=== PATIENT | male | born 1955 | race Caucasian/White ===

== ENCOUNTER 2024-01-10 19:41 | Inpatient (IN) ==
[2024-01-10 20:40] LABS: Basophils # (auto) 0.04 K/uL (0.00-0.20); Basophils % (auto) 0.3 %; Eosinophils # (auto) 0.04 K/uL (0.00-0.50); Eosinophils % (auto) 0.3 %; Hematocrit (blood only) 28.3 % (42.0-52.0); Hemoglobin 9.9 g/dl (14.0-18.0); Immature Granulocytes # (auto) 0.06 K/uL (0.01-0.20); Immature Granulocytes % (auto) 0.5 %; Lymphocytes # (auto) 0.78 K/uL (1.20-3.40); Mean Corpuscular Hemoglobin 31.1 pg (25.0-34.0); Mean Platelet Volume 11.3 fL (9.4-12.4); Monocytes % (auto) 10.7 %; Neutrophils # (auto) 10.73 K/uL (1.40-6.50); Neutrophils % (auto) 82.2 %; Platelet Count 211 K/uL (130-400); RDW Coefficient of Variation 12.7 % (11.5-14.5); RDW Standard Deviation 41.2 fL (36.4-46.3); Red Blood Count 3.18 M/uL (4.70-6.10); White Blood Count 13.05 K/ul (4.8-10.8)
[2024-01-10 21:11] LABS: Albumin Globulin Ratio 1.3 (0.9-2); Albumin Level 4.1 gm/dl (3.4-5.0); BUN Creatinine Ratio 7.2 (10-20); Bilirubin,Total 0.4 mg/dl (0.2-1.0); Calcium 8.7 mg/dl (8.6-10.3); Creatinine Clr Calc Pharmacy 10.1 ml/min; Est GFR (African American) 8.4 ml/min; Est GFR (Non-African American) 7.2 ml/min; Globulin 3.1 gm/dl (2.5-4.0); Potassium 6.2 mmol/L (3.5-5.1); Total Protein 7.2 gm/dl (6.0-8.3)
[2024-01-10] MEDS: ALBUTEROL 0.5% NEB SOLN 2.5 MG/0.5 ML VIAL NEB STA (21:53)
[2024-01-10] MEDS: SODIUM BICARBONATE 8.4% 150 MEQ in DEXTROSE 5% 1,000 ML IV STA (21:53)
[2024-01-10] MEDS: INSULIN HUMAN REGULAR PER UNIT 10 UNITS in SYRINGE 9.9 ML IV STA (21:53)
[2024-01-10] MEDS: DEXTROSE 50% 50 ML SYRINGE IV STA (21:56)
[2024-01-10] MEDS: NovoLIN-R INSULIN PER UNIT CHARGE ONE (21:59)
[2024-01-10] MEDS: SODIUM CHLORIDE 0.9% 1,000 ML IV ONE (21:59)
--- NOTE | 2024-01-10 22:04 | Emergency Department Note ---
Impression & Plan Acute renal failure with oliguria, Hyponatremia, Acute hyperkalemia ED Provider Note NAME: JUSTIN ESPINO AGE: 68 SEX: M : 1955 ARRIVES VIA: Walk-In INFORMANT: Patient, ED PROVIDER(S): Christofer Fenton MD CHIEF COMPLAINT: Nausea, vomiting, diarrhea HPI: This is a 68-year-old male present for vomiting and diarrhea since about 4 AM this morning. He states that he has had numerous episodes going about 15 minutes between nausea vomiting and diarrhea. He notes that he has she has not been able to urinate for the past 1.5 days. He has had no change prior to this including chest pain, shortness of breath, fever, chills, and abdominal pain, flank pain. He notes that this may have happened few years ago where he then began to pee without any issue. ROS: See above HPI for pertinent positives & negatives. A total of 10 systems reviewed and were otherwise negative. PHYSICAL EXAMINATION: General: resting comfortably in no acute distress Head: Normocephalic and atraumatic Eyes: Normal inspection, extraocular muscles intact Ear, nose, throat: Normal external exam Neck: Normal range of motion Respiratory: lungs clear to auscultation bilaterally Cardiovascular: Regular rate/rhythm, no murmur GI: soft, nontender, no guarding or rebound Extremities: nontender, moves all extremities Neuro: The patient awake and alert, appropriately conversive, no focal deficits, symmetric faces Skin: Warm, dry, and intact MEDICAL DECISION MAKING: This is a 68-year-old male presenting for nausea vomiting diarrhea. Was alerted by triage nurse that patient's creatinine and potassium are elevated. His creatinine is over 7 with potassium of over 6. EKG is concerning for hyperacute T waves and slight bradycardia. No QRS widening at this time. -Otherwise his sodium level is 123, chloride 89, carbon dioxide 16, anion gap of 18. -Will emergently trial patient on hyperkalemia protocol. Will do CT Noncon to help elucidate any obstructive source -Patient states he is not making urine, concern for oliguria from patient's renal failure -ECG independently interpreted by me with sinus bradycardia, rate of 52, normal axis, normal AR, normal QRS, normal QTc, no ST segment elevations consistent with STEMI criteria, borderline peaked T waves in the lateral leads -After hyperkalemia protocol, patient is significantly improved rate into the 80s/90s, P T waves are lessening. -Discussed care with Dr. Galvez, heating repair technician here who states that we cannot do emergent dialysis overnight but could do it in the morning at around 8:30 AM if patient was still here. -Due to patient having EKG changes with hyperkalemia and new renal failure and oliguria, will discuss with [facility] as per patient request. -Discussed case with Dr. Stapleton, [facility], accepts the patient to his service, stepdown. Currently there is no bed and we are waiting for 1. In addition there is no medic transport tonight meaning that we will not have ambulance for transport. -Patient himself actually wishes to not be transported and wants to stay here if possible but he will go to [facility] if absolutely necessary. -Patient's family numbers have called in multiple times requesting us to emergently transfer however he has no bed and patient is not wish to go to another hospital outside of [facility]. In addition there is no ALS transport. I discussed this with the patient again who is he is comfortable staying here overnight and actually prefer to stay here and get dialysis in the morning if that is what happens. -Discussed case with Dr. Bee who will evaluate the patient for admission here -Patient's repeat BMP reveals improving hyperkalemia, creatinine is slightly worsening however -Patient had total of 3 L normal saline while here, no signs of fluid overload, hypoxia Differential diagnosis: Obstructive uropathy, renal artery occlusion, dehydration, renal failure ER treatment provided: See below Diagnostics interpreted by me: ECG: See above Cardiac Monitoring: An order was placed for continuous cardiac monitoring. The monitor shows a rate of 97 with sinus rhythm. Laboratory studies: As stated above and show below. Imaging studies: See below. Critical Care Note: I have personally spent 55 minutes of critical care time in the direct management of this patient. This includes bedside care, interpretation of diagnostic studies, and testing, discussion with consultants, patient, and family members, and other required patient management activities. This 55 minutes is in excess of all separately billable procedures. Past Med/Surg History Medical History Diabetes mellitus, type 2 Coronary artery disease Dyslipidemia Gout Hypertension Hypothyroidism Mitral valve prolapse Surgical History H/O heart artery stent Social History Smoking Status: Never smoker Hx Alcohol Use: Yes Alcohol type: beer Hx Substance Use: No Preferred Language: German Communication Ability: Effective Battery Repairer Required: No Beliefs That Will Affect Care: None Current Living Situation: Spouse Current Living Situation Comment: Lives with Other Information That Helps Us Care for You: No Feels Safe at Home: Yes Safety Concerns: Feels Safe At This Time Assistive Devices: Glasses Allergies Allergies Allergy/AdvReac Type Severity Reaction Status Date / Time acetaminophen [From Percocet] Allergy Severe HIVES & Verified 04/14/20 09:40 ITCHING oxycodone [From Percocet] Allergy Severe HIVES & Verified 04/14/20 09:40 ITCHING Home Meds Home Medications Medication Instructions Recorded Confirmed amlodipine 10 mg-benazepril 40 mg 1 cap PO QAM 01/20/19 01/11/24 capsule atorvastatin 40 mg tablet 40 mg PO HS 01/20/19 01/11/24 cholecalciferol (vitamin D3) 50 2,000 unit PO QAM 01/20/19 01/11/24 mcg (2,000 unit) tablet (Vitamin D3) cyanocobalamin (vitamin B-12) 1,000 mcg PO DAILY 01/20/19 01/11/24 1,000 mcg tablet (Vitamin B-12) lansoprazole 30 mg capsule,delayed 30 mg PO QAM 01/20/19 01/11/24 release metformin 1,000 mg tablet 1,000 mg PO AMHS 01/20/19 01/11/24 metoprolol succinate 100 mg 100 mg PO QPM 01/20/19 01/11/24 tablet,extended release 24 hr vbfgcsrwugpk-dyu-vwxug acid-vit 1 tab PO QPM 01/20/19 01/11/24 K-lycop 400 mcg-20 mcg-370 mcg tablet (Men's 50 Plus Multivitamin) allopurinol 300 mg tablet 300 mg PO QAM 04/14/20 01/11/24 spironolactone 25 mg tablet 25 mg PO QAM 04/14/20 01/11/24 aspirin 81 mg tablet,delayed 81 mg PO QAM 01/11/24 01/11/24 release chlorthalidone 25 mg tablet 25 mg PO QAM 01/11/24 01/11/24 ferrous sulfate 325 mg (65 mg 325 mg PO DAILY 01/11/24 01/11/24 iron) tablet (iron) glipizide 5 mg tablet, extended 5 mg PO QAM 01/11/24 01/11/24 release 24 hr levothyroxine 112 mcg tablet 112 mcg PO DAILYBB 01/11/24 01/11/24 metoprolol succinate 50 mg 50 mg PO QAM 01/11/24 01/11/24 tablet,extended release 24 hr nortriptyline 10 mg capsule 200 mg PO HS 01/11/24 01/11/24 omega 0-bxp-bhj-fish oil 1,200 mg 1 cap PO UD 01/11/24 01/11/24 (144 mg-216 mg) capsule (Fish Oil) tadalafil 10 mg tablet 10 mg PO DAILY PRN Erectile 01/11/24 01/11/24 Dysfunction triamcinolone acetonide 0.5 % 1 applic topical BID 01/11/24 01/11/24 topical cream Results & Data (ED) Vital Signs Vital Signs - 24 hr 01/10/24 19:46 01/10/24 21:16 01/10/24 21:54 Temperature 37.1 C Temperature Source Temporal Artery Scan Pulse Rate 54 L 52 L Pulse Rate [Apical] Pulse Rate [Right Finger] 58 L Respiratory Rate 18 19 Respiratory Effort / Characteristics Non-Labored Spontaneous Non-Labored Spontaneous Respiratory Depth Normal Respiratory Pattern Regular Blood Pressure 155/66 H Blood Pressure [Left Arm] Blood Pressure Mean 95 Blood Pressure Mean [Left Arm] Blood Pressure Position Sitting Pulse Oximetry 98 98 Oxygen Delivery Method Room Air Room Air Sepsis Recent Fever Within 48 Hours No Sepsis New/Unexplained Change in Mental Status N/A Sepsis Action Taken by Nursing No Action Required 01/10/24 23:10 01/11/24 01:00 01/11/24 01:49 Temperature Temperature Source Pulse Rate 97 H Pulse Rate [Apical] 97 H Pulse Rate [Right Finger] 103 H Respiratory Rate 20 18 Respiratory Effort / Characteristics Non-Labored Spontaneous Non-Labored Spontaneous Respiratory Depth Normal Normal Respiratory Pattern Regular Regular Blood Pressure Blood Pressure [Left Arm] 140/73 129/76 Blood Pressure Mean Blood Pressure Mean [Left Arm] 95 93 Blood Pressure Position Pulse Oximetry 98 96 Oxygen Delivery Method Room Air Room Air Sepsis Recent Fever Within 48 Hours Sepsis New/Unexplained Change in Mental Status Sepsis Action Taken by Nursing Laboratory Data 01/11/24 03:34 01/11/24 11:46 Lab Results 01/10/24 01/10/24 01/10/24 Range/Units 20:11 20:20 23:12 WBC 13.05 H (4.8-10.8) K/ul RBC 3.18 L (4.70-6.10) M/uL Hgb 9.9 L (14.0-18.0) g/dl Hct 28.3 L (42.0-52.0) % MCV 89.0 (80.0-100.0) fL MCH 31.1 (25.0-34.0) pg MCHC 35.0 (32.0-36.0) g/dL RDW Std Deviation 41.2 (36.4-46.3) fL RDW Coeff of Jada 12.7 (11.5-14.5) % Plt Count 211 (130-400) K/uL MPV 11.3 (9.4-12.4) fL Immature Gran % (Auto) 0.5 % Neut % (Auto) 82.2 % Lymph % (Auto) 6.0 % [place] % (Auto) 10.7 % Eos % (Auto) 0.3 % Baso % (Auto) 0.3 % Neut # (Auto) 10.73 H (1.40-6.50) K/uL Lymph # (Auto) 0.78 L (1.20-3.40) K/uL [place] # (Auto) 1.40 H (0.11-0.59) K/uL Eos # (Auto) 0.04 (0.00-0.50) K/uL Baso # (Auto) 0.04 (0.00-0.20) K/uL Immature Gran # (Auto) 0.06 (0.01-0.20) K/uL Sodium 123 L (136-145) mmol/L Potassium 6.2 H* (3.5-5.1) mmol/L Chloride 89 L (98-107) mmol/L Carbon Dioxide 16 L (21-32) mmol/L Anion Gap 18 H (3-11) BUN 51 H (6-23) mg/dl Creatinine 7.12 H* (0.6-1.4) mg/dl Est Cr Clr Drug Dosing 10.1 ml/min Est GFR ( Amer) 8.4 ml/min Est GFR (Non-Af Amer) 7.2 ml/min BUN/Creatinine Ratio 7.2 L (10-20) Glucose 137 H (70-99(Fasting)) mg/dl POC Glucose 207 H (70-99) mg/dl Estimat Average Glucose 166 mg/dl Hemoglobin A1c 7.4 H (4.5-5.6) % Osmolality 277 L (280-300) mOsm/kg Calcium 8.7 (8.6-10.3) mg/dl Magnesium (1.7-2.4) mg/dl Total Bilirubin 0.4 (0.2-1.0) mg/dl Direct Bilirubin (0-0.2) mg/dl AST 28 (13-39) U/L ALT 20 (7-52) U/L Alkaline Phosphatase 110 H (34-104) U/L Total Creatine Kinase (30-223) U/L Total Protein 7.2 (6.0-8.3) gm/dl Albumin 4.1 (3.4-5.0) gm/dl Globulin 3.1 (2.5-4.0) gm/dl Albumin/Globulin Ratio 1.3 (0.9-2) Procalcitonin 0.30 (0-0.5) ng/ml TSH 0.307 (0.300-4.500) uIu/ml 01/11/24 Range/Units 00:21 WBC (4.8-10.8) K/ul RBC (4.70-6.10) M/uL Hgb (14.0-18.0) g/dl Hct (42.0-52.0) % MCV (80.0-100.0) fL MCH (25.0-34.0) pg MCHC (32.0-36.0) g/dL RDW Std Deviation (36.4-46.3) fL RDW Coeff of Jada (11.5-14.5) % Plt Count (130-400) K/uL MPV (9.4-12.4) fL Immature Gran % (Auto) % Neut % (Auto) % Lymph % (Auto) % [place] % (Auto) % Eos % (Auto) % Baso % (Auto) % Neut # (Auto) (1.40-6.50) K/uL Lymph # (Auto) (1.20-3.40) K/uL [place] # (Auto) (0.11-0.59) K/uL Eos # (Auto) (0.00-0.50) K/uL Baso # (Auto) (0.00-0.20) K/uL Immature Gran # (Auto) (0.01-0.20) K/uL Sodium 123 L (136-145) mmol/L Potassium 5.0 (3.5-5.1) mmol/L Chloride 90 L (98-107) mmol/L Carbon Dioxide 19 L (21-32) mmol/L Anion Gap 14 H (3-11) BUN 51 H (6-23) mg/dl Creatinine 7.43 H* D (0.6-1.4) mg/dl Est Cr Clr Drug Dosing 9.7 ml/min Est GFR ( Amer) 8.0 ml/min Est GFR (Non-Af Amer) 6.9 ml/min BUN/Creatinine Ratio 6.9 L (10-20) Glucose 197 H (70-99(Fasting)) mg/dl POC Glucose (70-99) mg/dl Estimat Average Glucose mg/dl Hemoglobin A1c (4.5-5.6) % Osmolality (280-300) mOsm/kg Calcium 7.8 L (8.6-10.3) mg/dl Magnesium 1.3 L (1.7-2.4) mg/dl Total Bilirubin 0.3 (0.2-1.0) mg/dl Direct Bilirubin 0.1 (0-0.2) mg/dl AST 23 (13-39) U/L ALT 17 (7-52) U/L Alkaline Phosphatase 92 (34-104) U/L Total Creatine Kinase 414 H (30-223) U/L Total Protein 6.2 (6.0-8.3) gm/dl Albumin 3.5 (3.4-5.0) gm/dl Globulin (2.5-4.0) gm/dl Albumin/Globulin Ratio (0.9-2) Procalcitonin (0-0.5) ng/ml TSH (0.300-4.500) uIu/ml Administered Medications Acetaminophen (Acetaminophen 500 Mg Tab) 500 mg PO Q6H PRN PRN Reason: fever/pain Stop: 02/10/24 01:59 Last Admin: 01/11/24 10:57 Dose: 500 mg Documented By: GPF Amlodipine Besylate (Amlodipine Besylate 5 Mg Tab) 10 mg PO [facility] Stop: 02/10/24 08:59 Last Admin: 01/11/24 08:20 Dose: 10 mg Documented By: GPF Aspirin (Aspirin 81 Mg Ectab) 81 mg PO [facility] Stop: 02/10/24 08:59 Last Admin: 01/11/24 08:21 Dose: 81 mg Documented By: GPF Cyanocobalamin (Cyanocobalamin (B-12) 500 Mcg Tablet) 1,000 mcg PO DAILY [facility] Stop: 02/10/24 08:59 Last Admin: 01/11/24 08:20 Dose: 1,000 mcg Documented By: GPF Ferrous Sulfate (Ferrous Sulfate 325 Mg Tab) 325 mg PO DAILY [facility] Stop: 02/10/24 08:59 Last Admin: 01/11/24 08:20 Dose: 325 mg Documented By: GPF Folic Acid (Folic Acid 1 Mg Tab) 1 mg PO [facility] Stop: 02/10/24 08:59 Last Admin: 01/11/24 09:37 Dose: 1 mg Documented By: GPF Heparin Sodium (Porcine) (Heparin Sod 5,000 Unit/0.5 Ml Vial) 5,000 units SQ Q8 [facility] Stop: 02/10/24 05:59 Last Admin: 01/11/24 14:29 Dose: 5,000 units Documented By: Admin: 01/11/24 06:21 Dose: 5,000 units Documented By: TLM Insulin Aspart (Insulin Aspart Per Unit Charge) 0 units SC ACHS [facility] Stop: 02/10/24 05:01 Last Admin: 01/11/24 17:03 Dose: 3 units Documented By: KIRILL Co-signed By: JULIÁN Admin: 01/11/24 12:09 Dose: 3 units Documented By: GPAshtyn Co-signed By: JULIÁN Admin: 01/11/24 08:17 Dose: 5 units Documented By: GPAshtyn Co-signed By: JULIÁN Admin: 01/11/24 05:11 Dose: Not Given Documented By: IRENE Levothyroxine Sodium (Levothyroxine Sodium 112 Mcg Tablet) 112 mcg PO DAILYBB [facility] Stop: 02/10/24 06:29 Last Admin: 01/11/24 06:22 Dose: 112 mcg Documented By: IRENE Metoprolol Succinate (Metoprolol Succ 50mg Ext Rel Tab) 50 mg PO BID [facility] Stop: 02/10/24 08:59 Last Admin: 01/11/24 08:20 Dose: 50 mg Documented By: KIRILL Multivitamins ([facility]ivitamin Tab) [facility]: 02/10/24 08:59 Last Admin: 01/11/24 09:37 Dose: 1 tab Documented By: GPAshtyn Pantoprazole Sodium (Pantoprazole 40 Mg Tab) 40 mg PO QAM [facility] Stop: 02/10/24 08:59 Last Admin: 01/11/24 08:20 Dose: 40 mg Documented By: KIRILL Discontinued Medications Albuterol (Albuterol 0.5% Neb Soln 2.5 Mg/0.5 Ml Vial) 10 mg NEB NOW STA Stop: 01/10/24 21:04 Last Admin: 01/10/24 21:53 Dose: 10 mg Documented By: JUNIE Dextrose (Dextrose 50% 50 Ml Syringe) 50 ml IV NOW STA Stop: 01/10/24 21:04 Last Admin: 01/10/24 21:56 Dose: 50 ml Documented By: DOTTIE Insulin Human Regular 10 units (/ Syringe) 9.9 mls @ 3 mls/sec IV ONE STA Stop: 01/10/24 21:04 Last Admin: 01/10/24 21:53 Dose: 3 mls/sec Documented By: DOTTIE Co-signed By: KUNAL Sodium Bicarbonate 150 meq/ (Dextrose) 1,150 mls @ 290 mls/hr IV .Q3H58M STA Stop: 01/11/24 01:00 Last Infusion: 01/11/24 01:54 Dose: Infused Documented By: DLRachel Admin: 01/10/24 21:53 Dose: 290 mls/hr Documented By: DOTTIE Sodium Chloride (Nss) 1,000 mls @ 999 mls/hr IV .Q1H1M ONE Stop: 01/10/24 22:19 Last Infusion: 05/04/24 23:09 Dose: Infused Documented By: Admin: 01/10/24 21:59 Dose: 999 mls/hr Documented By: ODTTIE Calcium Gluconate () 1,000 mg in 60 mls @ 240 mls/hr IV NOW STA Stop: 01/10/24 22:32 Last Infusion: 01/10/24 23:32 Dose: Infused Documented By: Admin: 01/10/24 23:08 Dose: 240 mls/hr Documented By: TE Sodium Chloride (Nss) 1,000 mls @ 999 mls/hr IV .Q1H1M ONE Stop: 01/11/24 02:43 Last Infusion: 01/11/24 01:47 Dose: Infused Documented By: Admin: 01/11/24 01:00 Dose: 999 mls/hr Documented By: TE Sodium Bicarbonate 150 meq/ (Sterile Water) 1,150 mls @ 200 mls/hr IV .Q5H45M ONE Stop: 01/11/24 07:57 Last Infusion: 01/11/24 08:10 Dose: Infused Documented By: Admin: 01/11/24 03:16 Dose: 200 mls/hr Documented By: JRajni Magnesium Sulfate/Dextrose (Magnesium Sulfate / D5w) 1 gm in 100 mls @ 50 mls/hr IV Q2H [facility] Stop: 01/11/24 10:29 Last Infusion: 01/11/24 10:25 Dose: Infused Documented By: Admin: 01/11/24 08:17 Dose: 50 mls/hr Documented By: Infusion: 01/11/24 08:17 Dose: Infused Documented By: Admin: 01/11/24 06:21 Dose: 50 mls/hr Documented By: Infusion: 01/11/24 06:21 Dose: Infused Documented By: Admin: 01/11/24 05:15 Dose: 50 mls/hr Documented By: AMW Sodium Bicarbonate 150 meq/ (Sterile Water) 1,150 mls @ 100 mls/hr IV .[id number] [facility] Stop: 01/12/24 07:59 Last Infusion: 01/11/24 16:41 Dose: Infused Documented By: Admin: 01/11/24 08:17 Dose: 100 mls/hr Documented By: GPAshtyn Thiamine HCl 100 mg/ Syringe 10 mls @ 2 mls/min IV NOW STA Stop: 01/11/24 08:54 Last Admin: 01/11/24 09:37 Dose: 2 mls/min Documented By: GPF Insulin Human Regular (Novolin-R Insulin Per Unit Charge) Confirm Administered Dose 10 units .ROUTE .STK-MED ONE Stop: 01/10/24 21:21 Last Admin: 01/10/24 21:59 Dose: Not Given Documented By: VME Imaging Data Radiologist's Impression: Chest X-Ray 01/11/24 01:16 XR chest 1V portable HISTORY: renal failure COMPARISON: None. FINDINGS: The heart remains mildly enlarged. No pneumothorax. No pleural effusions. No focal lung consolidations to suggest a pneumonia. No evidence for pulmonary edema. No acute fractures. IMPRESSION: Stable mild cardiomegaly. ACT 112: Negative or not required by law. Electronically signed by: Jorge Lehman M.D. 01/11/2024 7:50 AM Discharge Plan Visit Data Chief Complaint: Illness Stated Complaint: DIARRHEA/THROWING UP ED Provider: Christofer Fenton Discharge Problem: Acute renal failure with oliguria, Hyponatremia, Acute hyperkalemia Patient Disposition: Admitted As Inpatient Discharge Instructions Interventions: ED Discharge Assessment Last Done: 01/11/24 04:27
--- NOTE | 2024-01-10 22:10 | CT Scan Report ---
Exam(s): CT ABDOMEN + PELVIS Without Contrast EXAM: CT Abdomen and Pelvis Without Intravenous Contrast CLINICAL HISTORY: Reason for exam: Renal failure. TECHNIQUE: Axial computed tomography images of the abdomen and pelvis without intravenous contrast. CTDI is 27.48 mGy and DLP is 1355.38 mGy-cm. Automated exposure control was utilized for the study. A dose lowering technique was utilized adhering to the principles of ALARA. COMPARISON: No relevant prior studies available. FINDINGS: Lung bases: Unremarkable. No mass. No consolidation. ABDOMEN: Liver: Unremarkable. Gallbladder and bile ducts: Unremarkable. No calcified stones. No ductal dilation. Pancreas: Unremarkable. No ductal dilation. Spleen: Unremarkable. No splenomegaly. Adrenals: Unremarkable. No mass. Kidneys and ureters: No hydroureteronephrosis. No renal, ureteral, or bladder calculi present. 2.5 cm hypodensity upper pole right kidney likely ovarian cyst. 1.5 cm hypodensity upper pole left kidney likely a benign cyst. Stomach and bowel: Diverticulosis without evident diverticulitis. No obstruction. PELVIS: Appendix: No findings to suggest acute appendicitis. Bladder: Unremarkable. No stones. Reproductive: Unremarkable as visualized. ABDOMEN and PELVIS: Intraperitoneal space: Unremarkable. No free air. No significant fluid collection. Bones/joints: No acute fracture. No dislocation. Soft tissues: Unremarkable. Vasculature: Unremarkable. No abdominal aortic aneurysm. Lymph nodes: Unremarkable. No enlarged lymph nodes. IMPRESSION: No acute findings in the abdomen or pelvis. Electronically signed by: Tao Nuñez MD 01/10/24 22:10 PM
[2024-01-10] MEDS: CALCIUM GLUCONATE 1,000 MG/60 ML BAG IV STA (23:08)
[2024-01-11] MEDS: SODIUM CHLORIDE 0.9% 1,000 ML IV ONE ×2 (01:00→20:44)
[2024-01-11 01:06] LABS: BUN Creatinine Ratio 6.9 (10-20); Calcium 7.8 mg/dl (8.6-10.3); Creatinine Clr Calc Pharmacy 9.7 ml/min; Est GFR (Non-African American) 6.9 ml/min
[2024-01-11 01:37] LABS: Albumin Level 3.5 gm/dl (3.4-5.0); Bilirubin Direct 0.1 mg/dl (0-0.2); Bilirubin,Total 0.3 mg/dl (0.2-1.0); Magnesium 1.3 mg/dl (1.7-2.4); Total Protein 6.2 gm/dl (6.0-8.3)
--- NOTE | 2024-01-11 01:52 | History & Physical Report ---
Date of Service January 11, 2024 Assessment & Plan (1) ARF (acute renal failure): Plan: Hyperkalemia secondary to ARF, AGMA secondary to diarrheal illness Home medications contributory Episodic hyperkalemia on review of outpatient blood work. Hyponatremia secondary to illness hx CAD status post stent mild MR hypertension, elevated secondary illness hyperlipidemia, on statin Rx DM2 on oral medications, well-controlled as of outpatient hemoglobin A1c of 6.8 last June 2023 hypothyroidism, euthyroid as of today's TSH fatty liver/hepatic hemangioma as per records chronic anemia, hemoglobin at baseline mood disorder, stable alcohol abuse as per records, patient denies problem past tobacco abuse PCU Baseline UA Monitor creatinine response to bicarb drip Continue Lokelma Appropriate to hold benazepril, chlorthalidone, and spironolactone for now. Hyponatremia workup Nephrology consult Re: Hyponatremia, hyperkalemia, ARF (Patient known to Dr. Estevez of [facility] AMANDA S at risk protocol, DT precautions Basal bolus insulin, ISS BG goal 1 10-1 40, carb count coverage, update hemoglobin A1c DVT prophylaxis. Heparin subcu Full code Patient requesting for updates from providers. Ms. Maribel Lakhani, contact #[phone].) Patient /family adamantly demanding for patient to be transferred to tertiary care center. I explained to her that her has decision-making capacity and his wishes to stay at [facility] take precedence. Text document was generated using [employer]mp[employer] voice recognition software. It may contain grammatical or spelling errors. Kindly contact undersigned for clarification of any documentation item in question. History of Present Illness Chief Complaint: Nausea, vomiting, diarrhea Primary Care Provider: Pam Marshall, History obtained from patient, family, and records. Medical history significant for CAD status post stent, mild MR, hypertension, hyperlipidemia, DM2 on oral medications, hypothyroidism, fatty liver/hepatic hemangioma as per records, chronic anemia (baseline hemoglobin of 9), gout, peripheral neuropathy, mood disorder, alcohol abuse as per records, past tobacco abuse. 2 days history of nausea, vomiting, watery diarrhea symptoms. Mild abdominal discomfort. Last EtOH drink was 2 days ago. Not sure about sick contacts. No recent out-of-town travel or new restaurants or recent antibiotic Rx. Patient denies headache, chest pain, SOB symptoms. Denies OTC NSAID intake. Patient unable to urinate for more than a day as per family. Patient bradycardic upon arrival at the ER. Serum potassium 6.2, serum creatinine 7 Calcium gluconate, IV insulin, Lokelma, bicarb bolus administered at the ER. ER provider discussed case with [facility] paint sprayer on-call who recommended transfer to tertiary center if emergent dialysis needed. Patient accepted for transfer at [facility] by hospitalist service pending bed/transport availability. Patient currently declines transfer and would like to stay at [facility]. 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 Allergies Allergy/AdvReac Type Severity Reaction Status Date / Time acetaminophen [From Percocet] Allergy Severe HIVES & Verified 04/14/20 09:40 ITCHING oxycodone [From Percocet] Allergy Severe HIVES & Verified 04/14/20 09:40 ITCHING Home Medications Medication Instructions Recorded Confirmed Type amlodipine 10 mg-benazepril 40 mg 1 cap PO QAM 01/20/19 01/11/24 History capsule atorvastatin 40 mg tablet 40 mg PO HS 01/20/19 01/11/24 History cholecalciferol (vitamin D3) 50 2,000 unit PO QAM 01/20/19 01/11/24 History mcg (2,000 unit) tablet (Vitamin D3) cyanocobalamin (vitamin B-12) 1,000 mcg PO DAILY 01/20/19 01/11/24 History 1,000 mcg tablet (Vitamin B-12) lansoprazole 30 mg capsule,delayed 30 mg PO QAM 01/20/19 01/11/24 History release metformin 1,000 mg tablet 1,000 mg PO AMHS 01/20/19 01/11/24 History metoprolol succinate 100 mg 100 mg PO QPM 01/20/19 01/11/24 History tablet,extended release 24 hr iaxkqvqrtajz-dfg-kyymm acid-vit 1 tab PO QPM 01/20/19 01/11/24 History K-lycop 400 mcg-20 mcg-370 mcg tablet (Men's 50 Plus Multivitamin) allopurinol 300 mg tablet 300 mg PO QAM 04/14/20 01/11/24 History spironolactone 25 mg tablet 25 mg PO QAM 04/14/20 01/11/24 History aspirin 81 mg tablet,delayed 81 mg PO QAM 01/11/24 01/11/24 History release chlorthalidone 25 mg tablet 25 mg PO QAM 01/11/24 01/11/24 History ferrous sulfate 325 mg (65 mg 325 mg PO DAILY 01/11/24 01/11/24 History iron) tablet (iron) glipizide 5 mg tablet, extended 5 mg PO QAM 01/11/24 01/11/24 History release 24 hr levothyroxine 112 mcg tablet 112 mcg PO DAILYBB 01/11/24 01/11/24 History metoprolol succinate 50 mg 50 mg PO QAM 01/11/24 01/11/24 History tablet,extended release 24 hr nortriptyline 10 mg capsule 200 mg PO HS 01/11/24 01/11/24 History omega 8-gpt-nmd-fish oil 1,200 mg 1 cap PO UD 01/11/24 01/11/24 History (144 mg-216 mg) capsule (Fish Oil) tadalafil 10 mg tablet 10 mg PO DAILY PRN Erectile 01/11/24 01/11/24 History Dysfunction triamcinolone acetonide 0.5 % 1 applic topical BID 01/11/24 01/11/24 History topical cream Past Med/Surg History Medical History (Updated 01/11/24 @ 10:08 by Stacie Estevez MD, PhD) Coronary artery disease Dyslipidemia Gout Hypertension Hypothyroidism Mitral valve prolapse Surgical History H/O heart artery stent Social History Smoking Status: Never smoker Hx Alcohol Use: Yes Alcohol type: beer Hx Substance Use: No Preferred Language: Indonesian Communication Ability: Effective Casing Fluid Tender Required: No Beliefs That Will Affect Care: None Current Living Situation: Spouse Current Living Situation Comment: Lives with Other Information That Helps Us Care for You: No Feels Safe at Home: Yes Safety Concerns: Feels Safe At This Time Assistive Devices: Glasses Review of Systems Review of Systems: As per HPI, all other systems reviewed and negative Physical Exam Physical Exam: GENERAL: Comfortable, pleasant, obese, no respiratory distress SKIN: Pallor , warm HEENT: Pale palpebral conjunctivae, no ptosis, dry buccal mucosa NECK : Supple, short neck, no tenderness CHEST : CTA, no tenderness HEART : RRR, no obvious murmurs ABDOMEN: Some distention, nontender EXTREMITIES : No LE swelling/tenderness, no other conspicuous deformities noted NEUROLOGIC : Coherent, no facial asymmetry, no other gross focality Results & Data Results & Data Vital Signs (Past 12 Hours) Vital Signs Temp Pulse Pulse Pulse Resp BP BP 01/11/24 01:00 97 H 18 129/76 01/10/24 23:10 103 H 20 140/73 01/10/24 21:54 58 L 19 01/10/24 21:16 52 L 01/10/24 19:46 37.1 C 54 L 18 155/66 H Pulse Ox O2 Del Method 01/11/24 01:00 96 Room Air 01/10/24 23:10 98 Room Air 01/10/24 21:54 98 Room Air 01/10/24 21:16 01/10/24 19:46 98 Room Air Laboratory Results Laboratory Results WBC 13.05 K/ul (4.8-10.8) H 01/10/24 20:11 RBC 3.18 M/uL (4.70-6.10) L 01/10/24 20:11 Hgb 9.9 g/dl (14.0-18.0) L 01/10/24 20:11 Hct 28.3 % (42.0-52.0) L 01/10/24 20:11 MCV 89.0 fL (80.0-100.0) 01/10/24 20:11 MCH 31.1 pg (25.0-34.0) 01/10/24 20:11 MCHC 35.0 g/dL (32.0-36.0) 01/10/24 20:11 RDW Std Deviation 41.2 fL (36.4-46.3) 01/10/24 20:11 RDW Coeff of Jada 12.7 % (11.5-14.5) 01/10/24 20:11 Plt Count 211 K/uL (130-400) 01/10/24 20:11 MPV 11.3 fL (9.4-12.4) 01/10/24 20:11 Immature Gran % (Auto) 0.5 % 01/10/24 20:11 Neut % (Auto) 82.2 % 01/10/24 20:11 Lymph % (Auto) 6.0 % 01/10/24 20:11 [place] % (Auto) 10.7 % 01/10/24 20:11 Eos % (Auto) 0.3 % 01/10/24 20:11 Baso % (Auto) 0.3 % 01/10/24 20:11 Neut # (Auto) 10.73 K/uL (1.40-6.50) H 01/10/24 20:11 Lymph # (Auto) 0.78 K/uL (1.20-3.40) L 01/10/24 20:11 [place] # (Auto) 1.40 K/uL (0.11-0.59) H 01/10/24 20:11 Eos # (Auto) 0.04 K/uL (0.00-0.50) 01/10/24 20:11 Baso # (Auto) 0.04 K/uL (0.00-0.20) 01/10/24 20:11 Immature Gran # (Auto) 0.06 K/uL (0.01-0.20) 01/10/24 20:11 Sodium 123 mmol/L (136-145) L 01/11/24 00:21 Potassium 5.0 mmol/L (3.5-5.1) 01/11/24 00:21 Chloride 90 mmol/L (98-107) L 01/11/24 00:21 Carbon Dioxide 19 mmol/L (21-32) L 01/11/24 00:21 Anion Gap 14 (3-11) H 01/11/24 00:21 BUN 51 mg/dl (6-23) H 01/11/24 00:21 Creatinine 7.43 mg/dl (0.6-1.4) H* D 01/11/24 00:21 Est Cr Clr Drug Dosing 9.7 ml/min 01/11/24 00:21 Est GFR ( Amer) 8.0 ml/min 01/11/24 00:21 Est GFR (Non-Af Amer) 6.9 ml/min 01/11/24 00:21 BUN/Creatinine Ratio 6.9 (10-20) L 01/11/24 00:21 Glucose 197 mg/dl (70-99(Fasting)) H 01/11/24 00:21 POC Glucose 207 mg/dl (70-99) H 01/10/24 23:12 Osmolality 277 mOsm/kg (280-300) L 01/10/24 20:20 Calcium 7.8 mg/dl (8.6-10.3) L 01/11/24 00:21 Magnesium 1.3 mg/dl (1.7-2.4) L 01/11/24 00:21 Total Bilirubin 0.3 mg/dl (0.2-1.0) 01/11/24 00:21 Direct Bilirubin 0.1 mg/dl (0-0.2) 01/11/24 00:21 AST 23 U/L (13-39) 01/11/24 00:21 ALT 17 U/L (7-52) 01/11/24 00:21 Alkaline Phosphatase 92 U/L (34-104) 01/11/24 00:21 Total Protein 6.2 gm/dl (6.0-8.3) 01/11/24 00:21 Albumin 3.5 gm/dl (3.4-5.0) 01/11/24 00:21 Globulin 3.1 gm/dl (2.5-4.0) 01/10/24 20:11 Albumin/Globulin Ratio 1.3 (0.9-2) 01/10/24 20:11 Impressions Abdomen/Pelvis CT 01/10/24 21:19 Exam(s): CT ABDOMEN + PELVIS Without Contrast EXAM: CT Abdomen and Pelvis Without Intravenous Contrast CLINICAL HISTORY: Reason for exam: Renal failure. TECHNIQUE: Axial computed tomography images of the abdomen and pelvis without intravenous contrast. CTDI is 27.48 mGy and DLP is 1355.38 mGy-cm. Automated exposure control was utilized for the study. A dose lowering technique was utilized adhering to the principles of ALARA. COMPARISON: No relevant prior studies available. FINDINGS: Lung bases: Unremarkable. No mass. No consolidation. ABDOMEN: Liver: Unremarkable. Gallbladder and bile ducts: Unremarkable. No calcified stones. No ductal dilation. Pancreas: Unremarkable. No ductal dilation. Spleen: Unremarkable. No splenomegaly. Adrenals: Unremarkable. No mass. Kidneys and ureters: No hydroureteronephrosis. No renal, ureteral, or bladder calculi present. 2.5 cm hypodensity upper pole right kidney likely ovarian cyst. 1.5 cm hypodensity upper pole left kidney likely a benign cyst. Stomach and bowel: Diverticulosis without evident diverticulitis. No obstruction. PELVIS: Appendix: No findings to suggest acute appendicitis. Bladder: Unremarkable. No stones. Reproductive: Unremarkable as visualized. ABDOMEN and PELVIS: Intraperitoneal space: Unremarkable. No free air. No significant fluid collection. Bones/joints: No acute fracture. No dislocation. Soft tissues: Unremarkable. Vasculature: Unremarkable. No abdominal aortic aneurysm. Lymph nodes: Unremarkable. No enlarged lymph nodes. IMPRESSION: No acute findings in the abdomen or pelvis. Electronically signed by: Tao Nuñez MD 01/10/24 22:10 PM Diagnostic Findings Chest x-ray as per my dictation cardiomegaly EKG as per my interpretation : Rate 50, sinus bradycardia, normal axis, peaked T waves, no ischemia
[2024-01-11] MEDS ORDERED: LORazepam 0.5 MG TAB PO PRN (02:00)
[2024-01-11] MEDS ORDERED: HYDROmorphone HCL 2 MG TAB PO PRN (02:00)
[2024-01-11] MEDS ORDERED: PROMETHAZINE HCL 6.25 MG in SODIUM CHLORIDE 0.9% 50 ML IV PRN (02:00)
[2024-01-11] MEDS: SODIUM BICARBONATE 8.4% 150 MEQ in WATER, STERILE 1,000 ML IV ONE (03:16)
[2024-01-11 04:02] LABS: Appearance Urine Clear (Clear); Bacteria Urine Automated None Seen (None Seen); Bilirubin Urine Negative (Negative); Blood Urine 1+ (Negative); Cast Urine Automated 0-2 /lpf (0-2); Color Urine Yellow; Epithelial Cell Urine Auto 0-2 /hpf (0-2); Glucose Urine UA 1+ (Negative); Ketones Urine Negative (Negative); Leukocyte Esterase Urine Negative (Negative); Nitrite Urine Negative (Negative); Protein Urine Trace (Negative); RBC Urine Automated 0-2 /hpf (0-2); Specific Gravity Urine 1.006 (1.000-1.030); Urobilinogen Urine Negative (Negative); WBC Urine Automated 0-5 /hpf (0-5); pH Urine 6.5 (4.5-7.5)
[2024-01-11] MEDS ORDERED: GLUCAGON FOR INJ 1 MG VIAL SQ PRN (05:02)
[2024-01-11] MEDS ORDERED: CARBOHYDRATES FOR HYPOGLYCEMIA PO PRN (05:02)
[2024-01-11] MEDS ORDERED: GLUCOSE 40% GEL 15 GM TUBE PO PRN (05:02)
[2024-01-11] MEDS ORDERED: GLUCOSE 10 TAB/TUBE PO PRN (05:02)
[2024-01-11] MEDS ORDERED: DEXTROSE 50% 50 ML SYRINGE IV PRN (05:02)
[2024-01-11 05:04] LABS: Base Excess VBG -6.8 mEq/L; HCO3 VBG 20 mmol/L; Oxygen Saturation VBG 70.8 %; PCO2 VBG 42 mmHg (38-50); PO2 VBG 41 mmHg; pH VBG 7.28 (7.36-7.41)
[2024-01-11] MEDS: INSULIN ASPART PER UNIT CHARGE SC SCH (05:11)
[2024-01-11] MEDS: MAGNESIUM SULFATE / D5W 1 GM/100 ML BAG IV SCH (05:15)
[2024-01-11 05:30] LABS: BUN Creatinine Ratio 6.7 (10-20); Calcium 7.4 mg/dl (8.6-10.3); Creatinine Clr Calc Pharmacy 9.9 ml/min; Est GFR (Non-African American) 6.9 ml/min; Potassium 4.4 mmol/L (3.5-5.1)
[2024-01-11 05:50] LABS: Basophils # (auto) 0.03 K/uL (0.00-0.20); Basophils % (auto) 0.3 %; Eosinophils # (auto) 0.01 K/uL (0.00-0.50); Eosinophils % (auto) 0.1 %; Hematocrit (blood only) 24.1 % (42.0-52.0); Hemoglobin 8.4 g/dl (14.0-18.0); Immature Granulocytes # (auto) 0.04 K/uL (0.01-0.20); Immature Granulocytes % (auto) 0.4 %; Lymphocytes # (auto) 0.82 K/uL (1.20-3.40); Mean Corpuscular Hemoglobin 31.1 pg (25.0-34.0); Mean Corpuscular Hgb Conc 34.9 g/dL (32.0-36.0); Mean Corpuscular Volume 89.3 fL (80.0-100.0); Monocytes # (auto) 1.17 K/uL (0.11-0.59); Monocytes % (auto) 12.8 %; Neutrophils # (auto) 7.07 K/uL (1.40-6.50); Neutrophils % (auto) 77.4 %; Platelet Count 159 K/uL (130-400); RDW Coefficient of Variation 12.6 % (11.5-14.5); White Blood Count 9.14 K/ul (4.8-10.8)
[2024-01-11] MEDS: HEPARIN SOD 5,000 UNIT/0.5 ML VIAL SQ SCH (06:21)
[2024-01-11] MEDS: LEVOTHYROXINE SODIUM 112 MCG TABLET PO SCH (06:22)
[2024-01-11 07:20] LABS: Estimated Average Glucose 166 mg/dl; Hemoglobin A1C 7.4 % (4.5-5.6)
--- NOTE | 2024-01-11 07:51 | XRay Report ---
XR chest 1V portable HISTORY: renal failure COMPARISON: None. FINDINGS: The heart remains mildly enlarged. No pneumothorax. No pleural effusions. No focal lung con solidations to suggest a pneumonia. No evidence for pulmonary edema. No acute fractures. IMPRESSION: Stable mild cardiomegaly. ACT 112: Negative or not required by law. Electronically signed by: Jorge Lehman M.D. 01/11/2024 7:50 AM
[2024-01-11] MEDS: SODIUM BICARBONATE 8.4% 150 MEQ in WATER, STERILE 1,000 ML IV SCH (08:17)
[2024-01-11 08:18] LABS: Base Excess VBG -4.9 mEq/L; HCO3 VBG 21 mmol/L; Oxygen Saturation VBG < 60.0 %; PCO2 VBG 42 mmHg (38-50); PO2 VBG 28 mmHg; pH VBG 7.31 (7.36-7.41)
[2024-01-11] MEDS: CYANOCOBALAMIN (B-12) 500 MCG TABLET PO SCH (08:20)
[2024-01-11] MEDS: FERROUS SULFATE 325 MG TAB PO SCH (08:20)
[2024-01-11] MEDS: METOPROLOL SUCC 50MG EXT REL TAB PO SCH (08:20)
[2024-01-11] MEDS: amLODIPine BESYLATE 5 MG TAB PO SCH (08:20)
[2024-01-11] MEDS: PANTOprazole 40 MG TAB PO SCH (08:20)
[2024-01-11] MEDS: ASPIRIN 81 MG ECTAB PO SCH (08:21)
[2024-01-11] MEDS ORDERED: LORazepam 1 MG in SYRINGE 0.5 ML IV PRN (08:48)
[2024-01-11] MEDS ORDERED: SODIUM ZIRCONIUM CYCLOSILICATE 10 GM PACKET PO SCH (09:00)
[2024-01-11 09:09] LABS: BUN Creatinine Ratio 6.6 (10-20); Calcium 7.4 mg/dl (8.6-10.3); Creatinine Clr Calc Pharmacy 9.8 ml/min; Est GFR (African American) 7.9 ml/min; Est GFR (Non-African American) 6.8 ml/min; Potassium 4.7 mmol/L (3.5-5.1)
--- NOTE | 2024-01-11 09:12 | Hospitalist Progress Note ---
Date of Service January 11, 2024 Assessment & Plan (1) ARF (acute renal failure): Plan Pt is a 68yoM with PMHx significant for CAD status post stent, mild MR, hypertension, hyperlipidemia, DM2 on oral medications, hypothyroidism, fatty liver/hepatic hemangioma as per records, chronic anemia (baseline hemoglobin of 9), gout, peripheral neuropathy, mood disorder, alcohol abuse as per records, past tobacco abuse presenting with inability to urinate for the past day and a half before presentation. Acute on Chronic Kidney Disease Cr of 7.12 on admission, trended up to 7.43 with repeat labs Received 3L of fluids in the ED with apparent worsening of Cr Holding nephrotoxic meds Was [facility] be [facility] however pt adamantly refused despite family member's requests. Nephrology consulted, appreciate further recs for dialysis/further management Anion gap metabolic acidosis Anion Gap of 14-18 VBG with pH of 7.28, pCO2 of 42, HCO3 of 20 on admission Glucose levels range from 137-197, hgba1c of 7.4. UA with noted glucose, no ketones. Received IV insulin in the ED Likely secondary to diarrheal illness, severe kidney dysfunction Was started on bicarb drip in the ED and continued on admission Nephrology consulted, appreciate recs Hyponatremia Sodium of 123 on admission Urine osm of 200, urine Na 68, serum osm of 277 Received 3L of NSS in the ED Nephrology consulted as above, appreciate further recs Hyperkalemia K of 6.2 on admission Was treated with Lokelma in the ED Has since downtrended to 4.4 Nephrology consulted as above, appreciate recs Hypomagnesemia Magnesium levels on low end Replete as needed nephrology consulted as above, appreciate recs Anemia Hgb 9.9 on admission, trended down to 8.4 Pt appears to be on iron and B12 supplementation at home AM iron, b12 and folate levels, and increase supplementation as needed Continue to monitor H/H Elevated Creatinine Kinase Mild rhabdomyolysis CK elevated at 414 Received fluids in the ED AM CK level Cardiomegaly Sinus bradycardia Cardiomegaly noted on chest xray EKG with sinus bradycardia with PACs Nonurgent echo ordered for followup hx CAD status post stent mild MR hypertension In setting of DENNIS above, holding benazepril, chlorthalidone, and spironolactone Continue amlodipine hyperlipidemia on statin Rx, continue DMII on oral medications well-controlled as of outpatient hemoglobin A1c of 6.8 last June 2023 ISS while hospitalized Hold home metformin, glipizide Hypothyroidism Euthyroid as of TSH on admission, wnl Continue home levothyroxine mood disorder stable alcohol abuse as per records patient denies problem past tobacco abuse AWSS at risk protocol, DT precautions per admitting provider Diet: Clear Liquid DVT prophylaxis: Heparin subcu Dispo: PT/OT ordered for further recs Admission and Anticipated Discharge Date Admission Date: January 11, 2024 Subjective pt was seen in the AM. Laying in bed, denied acute concerns Stated that he was unable to urinate for the past day or so and came in. Review of Systems Review of Systems: All systems reviewed & are unremarkable except as noted in Subjective Physical Exam Physical Exam: General: Alert, oriented. No acute distress Skin: No noted rashes or bruises Psych: Appropriate mood and affect HEENT: NC/AT CV: RRR Resp: Breath sounds clear bilaterally, no increased effort of breathing. Abdomen: Soft, nontender, nondistended. Extremities: No edema in lower extremities bilaterally. Results & Data Results & Data Vital Signs (Past 12 Hours) Vital Signs Temp Pulse Pulse Pulse Resp BP BP 01/11/24 06:00 36.7 C 16 01/11/24 05:04 36.6 C 93 H 13 01/11/24 05:02 36.7 C 89 16 01/11/24 05:02 01/11/24 05:02 36.6 C 91 H 18 150/73 H 01/11/24 05:00 88 01/11/24 05:00 01/11/24 04:30 36.6 C 87 15 150/73 H 01/11/24 04:00 91 H 23 01/11/24 03:20 36.9 C 92 H 16 144/76 H 01/11/24 01:49 97 H 01/11/24 01:00 97 H 18 129/76 01/10/24 23:10 103 H 20 140/73 01/10/24 21:54 58 L 19 01/10/24 21:16 52 L 01/10/24 19:46 37.1 C 54 L 18 155/66 H BP Pulse Ox Pulse Ox O2 Del Method O2 Del Method 01/11/24 06:00 97 Room Air 01/11/24 05:04 150/73 H 97 Room Air 01/11/24 05:02 138/70 97 Room Air 01/11/24 05:02 94 Room Air 01/11/24 05:02 99 Room Air 01/11/24 05:00 01/11/24 05:00 Room Air 01/11/24 04:30 99 Room Air 01/11/24 04:00 01/11/24 03:20 96 Room Air 01/11/24 01:49 01/11/24 01:00 96 Room Air 01/10/24 23:10 98 Room Air 01/10/24 21:54 98 Room Air 01/10/24 21:16 01/10/24 19:46 98 Room Air Diagnostic Findings Abdomen/Pelvis CT 01/10/24 21:19 Exam(s): CT ABDOMEN + PELVIS Without Contrast EXAM: CT Abdomen and Pelvis Without Intravenous Contrast CLINICAL HISTORY: Reason for exam: Renal failure. TECHNIQUE: Axial computed tomography images of the abdomen and pelvis without intravenous contrast. CTDI is 27.48 mGy and DLP is 1355.38 mGy-cm. Automated exposure control was utilized for the study. A dose lowering technique was utilized adhering to the principles of ALARA. COMPARISON: No relevant prior studies available. FINDINGS: Lung bases: Unremarkable. No mass. No consolidation. ABDOMEN: Liver: Unremarkable. Gallbladder and bile ducts: Unremarkable. No calcified stones. No ductal dilation. Pancreas: Unremarkable. No ductal dilation. Spleen: Unremarkable. No splenomegaly. Adrenals: Unremarkable. No mass. Kidneys and ureters: No hydroureteronephrosis. No renal, ureteral, or bladder calculi present. 2.5 cm hypodensity upper pole right kidney likely ovarian cyst. 1.5 cm hypodensity upper pole left kidney likely a benign cyst. Stomach and bowel: Diverticulosis without evident diverticulitis. No obstruction. PELVIS: Appendix: No findings to suggest acute appendicitis. Bladder: Unremarkable. No stones. Reproductive: Unremarkable as visualized. ABDOMEN and PELVIS: Intraperitoneal space: Unremarkable. No free air. No significant fluid collection. Bones/joints: No acute fracture. No dislocation. Soft tissues: Unremarkable. Vasculature: Unremarkable. No abdominal aortic aneurysm. Lymph nodes: Unremarkable. No enlarged lymph nodes. IMPRESSION: No acute findings in the abdomen or pelvis. Electronically signed by: Tao Nuñez MD 01/10/24 22:10 PM Chest X-Ray 01/11/24 01:16 XR chest 1V portable HISTORY: renal failure COMPARISON: None. FINDINGS: The heart remains mildly enlarged. No pneumothorax. No pleural effusions. No focal lung consolidations to suggest a pneumonia. No evidence for pulmonary edema. No acute fractures. IMPRESSION: Stable mild cardiomegaly. ACT 112: Negative or not required by law. Electronically signed by: Jorge Lehman M.D. 01/11/2024 7:50 AM
[2024-01-11] MEDS: MULTIVITAMIN TAB PO SCH (09:37)
[2024-01-11] MEDS: THIAMINE HCL 100 MG in SYRINGE 9 ML IV STA (09:37)
[2024-01-11] MEDS: FOLIC ACID 1 MG TAB PO SCH (09:37)
--- NOTE | 2024-01-11 10:08 | Nephrology Consultation ---
Date of Consultation January 11, 2024 Assessment & Plan (1) ARF (acute renal failure): stage 3 nonooliguric DENNIS > he is 6.6 L positiive so far and minimal improvement in renal function > may be that we are seeing delayed worsening >> actual creat can reflect events of 1-2 days prior. curiously urine sediment with sugar, blood, protein > ? relation to infection. normal renal function at baseline w/ creatinine 0.9 but does have hx of white coat HTN -no indication for emergent dialysis -hyperkalemia has not returned > responded to medical therapy and he now is on clears but I did add low K diet to that -no nsaids or iv contrast unless latter is lifesaving -daily bmp (2) Hyponatremia: presented w/ SN[facility] 123; up to 125 early this am and then down again to 123. no sx. ? volume depletion versus SIADH of some type; no evidence of OL. had 4L IVF ON >> 2L NS, 2L bicarb gtt. urine osms 200, Yuni 68, serum osms 277 (no osm gap); goal is no more than 129 this PM and not to drop further. -no fluid limit for now -stopped IVF about 1630 -recheck BMP 1800 History of Present Illness Reason for Consultation: dennis on ckd Requesting Physician: Dr Gonsalez Attending Physician: Virginia Grubbs MD History of Present Illness 68 y/o M whom I'm asked to see for DENNIS on CKD was admitted overnight for same after presenting to ER w/ creatinine 7.1 in the setting of a diarrheal illness. Creat this AM is 7.5. He is on RA. Admission labs also notable from neph standpoint for sNa 123 and K 6.2, with values this AM of 123 and 4.4 respectively. He tells me that the day before admission he was vomiting or/and having diarrhea every 15 minutes. did note some dark emesis. no melena or hematochezia. PMH includes CAD s/p stent 2015, about DM since since at least 2009, HTN since at least 2009 and w/o hx of urgency and w/ hx white coat HTN (documented on 12/2023 24 hr BP), HL, gout, fatty liver and liver hemangioma, hypothyroid; had covid Jul 2020. Hx of intermittent heavy EtOH use, moreso since he retired > 3- 10 beers on days he drinks, though has told me in past he can go 1-2 wks w/o beer. He does have peripheral neuropathy which can be severe attrib to DM and EtOH. Hx of noncompliance repeatedly > ? at times d/t financial concerns. At November [place] [facility] [place] for example he had stopped multiple medications because he felt he was taking too many pills. Never user of tobacco. Follows w/ GI prn now for liver Has baseline creatinine 0.9 x years; then routine labs 02/2021 had K 6.4, creat 4.4; then 2 wks later had creat back to 1 and K wnl. This was prerenal/ischemic ATN after working outside in hot weather. Around time of bad labs had trouble voiding and no urine passed x 2 days; no pain, no blood, no n/v. No hx of stones. 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 , lives independently. With penitentiary gained 20+ lb, though has lost 40 lb in past w/ portion control, more fruits/veggies. overall he feels much improved today and is ambulating to bathroom /in room on his own. no rash, no fevers. does c/o BL flank pain but not sure if this may relate to hospital bed. ongoing watery BM but less frequent today. Allergies Allergy/AdvReac Type Severity Reaction Status Date / Time acetaminophen [From Percocet] Allergy Severe HIVES & Verified 04/14/20 09:40 ITCHING oxycodone [From Percocet] Allergy Severe HIVES & Verified 04/14/20 09:40 ITCHING Home Medications Medication Instructions Recorded Confirmed Type amlodipine 10 mg-benazepril 40 mg 1 cap PO QAM 01/20/19 01/11/24 History capsule atorvastatin 40 mg tablet 40 mg PO HS 01/20/19 01/11/24 History cholecalciferol (vitamin D3) 50 2,000 unit PO QAM 01/20/19 01/11/24 History mcg (2,000 unit) tablet (Vitamin D3) cyanocobalamin (vitamin B-12) 1,000 mcg PO DAILY 01/20/19 01/11/24 History 1,000 mcg tablet (Vitamin B-12) lansoprazole 30 mg capsule,delayed 30 mg PO QAM 01/20/19 01/11/24 History release metformin 1,000 mg tablet 1,000 mg PO AMHS 01/20/19 01/11/24 History metoprolol succinate 100 mg 100 mg PO QPM 01/20/19 01/11/24 History tablet,extended release 24 hr wzggisfveqfz-pcq-sysdz acid-vit 1 tab PO QPM 01/20/19 01/11/24 History K-lycop 400 mcg-20 mcg-370 mcg tablet (Men's 50 Plus Multivitamin) allopurinol 300 mg tablet 300 mg PO QAM 04/14/20 01/11/24 History spironolactone 25 mg tablet 25 mg PO QAM 04/14/20 01/11/24 History aspirin 81 mg tablet,delayed 81 mg PO QAM 01/11/24 01/11/24 History release chlorthalidone 25 mg tablet 25 mg PO QAM 01/11/24 01/11/24 History ferrous sulfate 325 mg (65 mg 325 mg PO DAILY 01/11/24 01/11/24 History iron) tablet (iron) glipizide 5 mg tablet, extended 5 mg PO QAM 01/11/24 01/11/24 History release 24 hr levothyroxine 112 mcg tablet 112 mcg PO DAILYBB 01/11/24 01/11/24 History metoprolol succinate 50 mg 50 mg PO QAM 01/11/24 01/11/24 History tablet,extended release 24 hr nortriptyline 10 mg capsule 200 mg PO HS 01/11/24 01/11/24 History omega 9-hyq-yxi-fish oil 1,200 mg 1 cap PO UD 01/11/24 01/11/24 History (144 mg-216 mg) capsule (Fish Oil) tadalafil 10 mg tablet 10 mg PO DAILY PRN Erectile 01/11/24 01/11/24 History Dysfunction triamcinolone acetonide 0.5 % 1 applic topical BID 01/11/24 01/11/24 History topical cream Patient History Medical History Diabetes mellitus, type 2 Coronary artery disease Dyslipidemia Gout Hypertension Hypothyroidism Mitral valve prolapse Surgical History H/O heart artery stent Social History Smoking Status: Never smoker Hx Alcohol Use: Yes Alcohol type: beer Hx Substance Use: No Preferred Language: Uzbek Communication Ability: Effective Broiler Supervisor Required: No Beliefs That Will Affect Care: None Current Living Situation: Spouse Current Living Situation Comment: Lives with Other Information That Helps Us Care for You: No Feels Safe at Home: Yes Safety Concerns: Feels Safe At This Time Assistive Devices: Glasses Review of Systems 2 Review of Systems: All systems reviewed & are unremarkable except as noted in HPI & below Physical Exam 2 Constitutional: well developed, well nourished, cooperative and comfortable; no acute distress Eyes: EOM intact bilaterally ENMT: Ears: no external ear abnormality Nose: no external nose abnormality Mouth: + dry oral mucous membranes Neck: no nuchal rigidity Respiratory: normal respiratory effort Auscultation: + diminished lung sounds Cardiovascular: RRR, no murmur, no edema Gastrointestinal (Abdomen): Inspection/Auscultation: normal bowel sounds P ercussion/Palpation: abdomen soft; abdomen nontender Musculoskeletal: Extremities: strength 5/5 throughout Skin: no rashes, warm and dry Neurologic: cash, fluent speech, no tremor Psychiatric: Orientation: alert and oriented x 3 Results & Data Vital Signs (Past 12 Hours) Vital Signs Temp Pulse Pulse Pulse Resp BP BP 01/11/24 08:00 01/11/24 08:00 91 H 01/11/24 07:00 36.5 C 97 H 20 01/11/24 07:00 36.5 C 90 20 01/11/24 06:00 36.7 C 16 01/11/24 05:04 36.6 C 93 H 13 01/11/24 05:02 36.7 C 89 16 01/11/24 05:02 01/11/24 05:02 36.6 C 91 H 18 150/73 H 01/11/24 05:00 88 01/11/24 05:00 01/11/24 04:30 36.6 C 87 15 150/73 H 01/11/24 04:00 91 H 23 01/11/24 03:20 36.9 C 92 H 16 144/76 H 01/11/24 01:49 97 H 01/11/24 01:00 97 H 18 129/76 01/10/24 23:10 103 H 20 140/73 BP Pulse Ox Pulse Ox O2 Del Method O2 Del Method 01/11/24 08:00 Room Air 01/11/24 08:00 01/11/24 07:00 138/70 98 Room Air 01/11/24 07:00 138/70 98 Room Air 01/11/24 06:00 97 Room Air 01/11/24 05:04 150/73 H 97 Room Air 01/11/24 05:02 138/70 97 Room Air 01/11/24 05:02 94 Room Air 01/11/24 05:02 99 Room Air 01/11/24 05:00 01/11/24 05:00 Room Air 01/11/24 04:30 99 Room Air 01/11/24 04:00 01/11/24 03:20 96 Room Air 01/11/24 01:49 01/11/24 01:00 96 Room Air 01/10/24 23:10 98 Room Air Laboratory Results 01/11/24 03:34 01/11/24 08:02 stool studies pending Diagnostic Findings CT a/p, CXR > no acute process
[2024-01-11 10:43] LABS: Adenovirus F 40/41 PCR Not Detected (NotDetected); Astrovirus PCR Not Detected (NotDetected); Campylobacter PCR Not Detected (NotDetected); Cryptosporidium PCR Not Detected (NotDetected); Cyclospora cayetanensis PCR Not Detected (NotDetected); Entamoeba histolytica PCR Not Detected (NotDetected); Enteroaggregative E.coli(EAEC) Not Detected (NotDetected); Enteropathogenic E.coli (EPEC) Not Detected (NotDetected); Enterotoxigenic E.coli (ETEC) Not Detected (NotDetected); Giardia lamblia PCR Not Detected (NotDetected); Norovirus GI/GII PCR Not Detected (NotDetected); Plesiomonas shigelloides PCR Not Detected (NotDetected); Rotavirus A PCR Not Detected (NotDetected); Salmonella PCR Not Detected (NotDetected); Sapovirus PCR Not Detected (NotDetected); Shiga-like Toxin E.coli (STEC) Not Detected (NotDetected); Shigella/Enteroinvasive E.coli Not Detected (NotDetected); Vibrio cholerae PCR Not Detected (NotDetected); Vibrio species PCR Not Detected (NotDetected); Yersinia enterocolitica PCR Not Detected (NotDetected)
[2024-01-11] MEDS: ACETAMINOPHEN 500 MG TAB PO PRN (10:57)
[2024-01-11 18:46] LABS: Creatinine Clr Calc Pharmacy 8.9 ml/min; Est GFR (Non-African American) 6.1 ml/min
[2024-01-11 18:47] LABS: Calcium 7.6 mg/dl (8.6-10.3); Potassium 4.9 mmol/L (3.5-5.1)
[2024-01-11] MEDS: SODIUM BICARB 8.4% INJ 50 MEQ/50 ML SYR IV STA (20:43)
[2024-01-11] MEDS: NORTRIPTYLINE HCL 25 MG CAP PO SCH (20:45)
[2024-01-11 22:42] LABS: Base Excess VBG -0.7 mEq/L; HCO3 VBG 24 mmol/L; Oxygen Saturation VBG 74.7 %; PCO2 VBG 40 mmHg (38-50); PO2 VBG 40 mmHg; pH VBG 7.39 (7.36-7.41)
--- NOTE | 2024-01-11 22:49 | Electrocardiogram Report ---
Test Reason : Blood Pressure : / mmHG Vent. Rate : 052 BPM Atrial Rate : 052 BPM P-R Int : 174 ms QRS Dur : 078 ms QT Int : 396 ms P-R-T Axes : 044 002 054 degrees QTc Int : 368 ms Sinus bradycardia with Premature atrial complexes Otherwise normal ECG When compared with ECG of 14-JAN-2022 12:24, Premature atrial complexes are now Present Vent. rate has decreased BY 53 BPM QT has shortened Confirmed by Paolo Rivera ([id number]) on 01/11/2024 10:49:08 PM Referred By: REFERRED SELF Confirmed By:Paolo Rivera
[2024-01-11 23:04] LABS: BUN Creatinine Ratio 5.7 (10-20); Creatinine Clr Calc Pharmacy 8.9 ml/min; Est GFR (Non-African American) 6.1 ml/min; Potassium 4.7 mmol/L (3.5-5.1)
[2024-01-11] MEDS: LORazepam 0.5 MG TAB PO STA (23:38)
[2024-01-12] MEDS: SODIUM CHLORIDE 0.9% 1,000 ML IV ONE (03:11)
--- OUTSIDE RECORDS SUMMARY | 2024-01-12 03:45 | External Medical Summary | Summary of Care ---
Author Name Unknown Organization [facility] Address [address] [facility] [place] [address] Phone [phone] Care Team Providers Care Helper Driver Name Role Phone Pam Marshall Mae Primary Care Provider Reason for Visit * Reason Onset Date Comments Blood Pressure Check 01/02/2024 Encounter Details Date Type Department Care Team (Late st Contact Info) Description 01/02/2024 Telephone Nephrology, aTmeka Arias [address] [place] [address] Stacie Estevez MD [address] [facility] [place] [address] Blood Pressure Check Allergies Active Allergy Reactions Criticality Noted Date Comments Oxycodone-Acetaminophen Itching High 05/12/2018 documented as of this encounter (statuses as of 01/06/2024) Medications Medication Sig Dispensed Refills Start Date End Date Status Aspirin 81 MG Tablet Take 1 Tablet by mouth in the morning. 0 Active Cyanocobalamin (B-12) 1000 MCG TABS Take by mouth. 0 Active Cholecalciferol 50 MCG (2000 UT) Oral Capsule Take 1 Capsule by mouth in the morning. 0 Active Multiple Vitamins-Minerals (MULTIVITAMIN MEN 50+) TABS Take by mouth. Pt takes in evening 0 Active [place]-3 Fatty Acids (FISH OIL) 1200 MG CPDR Take by mouth. 0 Active OneTouch Delica Lancets 33GIndications:Ty pe 2 diabetes mellitus with hemoglobin A1c goal of less than 7.0% ([facility]) Test blood sugar 4 times a day. DX E11.9 400 Each 3 09/11/2022 Active Levothyroxine Sodium 112 MCG Oral Tablet (Levoxyl) Take 1 Tablet by mouth in the morning. (at least 30 min prior to breakfast or other meds). 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 TAKE ONE TABLET BY MOUTH EVERY MORNING 100 Tablet 09/30/2023 Active Nortriptyline HCl 10 MG Oral Capsule (Pamelor) TAKE TWO CAPSULES BY MOUTH EVERY DAY AT BEDTIME 200 Capsule 09/30/2023 Active metFORMIN HCl 1000 MG Oral Tablet (Glucophage)Indic ations:Type 2 diabetes mellitus with hemoglobin A1c goal of less than 7.0% (HCC) TAKE ONE TABLET BY MOUTH TWICE A DAY -- IN THE MORNING AND BEFORE BEDTIME 200 Tablet 1 09/30/2023 Active amLODIPine Besy-Benazepril HCl 10-40 MG Oral Capsule (Lotrel)Indicatio ns:HTN, goal below 140/90 TAKE ONE CAPSULE BY MOUTH EVERY MORNING 100 Capsule 09/30/2023 Active Additional Information Patient taking differently: Takes in the evening, Reported on 11/11/2023 glipiZIDE ER 5 MG Oral Tablet Extended Release 24 Hour (Glucotrol XL) TAKE ONE TABLET BY MOUTH EVERY MORNING -- 30 MINUTES BEFORE A MEAL 100 Tablet 09/30/2023 Active Lansoprazole 30 MG Oral Capsule Delayed Release (Prevacid) TAKE ONE CAPSULE BY MOUTH EVERY MORNING 100 Capsule 09/30/2023 Active Spironolactone 25 MG Oral Tablet (Aldactone)Indica tions:HTN, goal below 140/90 TAKE ONE TABLET BY MOUTH EVERY MORNING 100 Tablet 09/30/2023 Active Atorvastatin Calcium 40 MG Oral Tablet (Lipitor)Indicati ons:Hyperlipidemi a with target LDL less than 70 TAKE ONE TABLET BY MOUTH EVERY DAY 100 Tablet 09/30/2023 Active Additional Information Patient taking differently: TAKES IN THE EVENING, Reported on 11/11/2023 Iron (Ferrous Sulfate) 325 (65 Fe) MG Oral Tablet 1 tablet daily 0 11/06/2023 Active Chlorthalidone 25 MG Oral Tablet (Hygroton) Take one-half tablet by mouth in the morning. 45 Tablet 3 11/11/2023 Active Metoprolol Succinate ER 50 MG Oral Tablet Extended Release 24 Hour (toPROL XL)Indications:HT N, goal below 140/90 TAKE ONE TABLET BY MOUTH EVERY MORNING (IN ADDDITION TO 100 MG TABLET IN THE EVENING) 90 Tablet 3 12/09/2023 12/08/2024 Active Metoprolol Succinate ER 100 MG Oral Tablet Extended Release 24 Hour (toPROL XL)Indications:HT N, goal below 140/90 TAKE ONE TABLET BY MOUTH EVERY EVENING (IN ADDITION TO THE 50 MG TABLET IN THE MORNING) 100 Tablet 3 12/15/2023 12/14/2024 Active Triamcinolone Acetonide 0.5 % External Cream (Aristocort)Indic ations:Psoriasis APPLY TO AFFECTED AREA TWICE A DAY 30 g 11 12/19/2023 Active Tadalafil 10 MG Oral Tablet (Cialis) Take 1 Tablet by mouth daily as needed for Erectile Dysfunction. prior to intercourse, no more than 1 dose in 24 hours 12 Tablet 3 12/19/2023 Active documented as of this encounter (statuses as of 01/06/2024) Active Problems Problem Noted Date Diagnosed Date Type 2 diabetes, controlled, with peripheral bisi ropathy 11/21/2023 Vasculogenic erectile dysfunction 01/01/2023 Carpal tunnel syndrome of right wrist 03/06/2022 Liver hemangioma 07/01/2019 Anemia 04/06/2019 Type 2 diabetes mellitus wit h hemoglobin A1c goal of less than 7.5% 01/18/2019 Psoriasis 11/20/2018 BMI 34.0-34.9,adult 11/20/2018 Isolated proteinuria 08/14/2018 Acquired hypothyroidism 06/16/2018 Benign colonic polyp 06/04/2018 Overview: He reports last colonoscopy 2015 with 1 benign polyp removed. Advised 5 year follow up. Done in [place]. Records requested. Family history of prostate cancer in father 05/10 Gout 05/14/2018 Coronary artery disease invo lving [place] coronary artery of [place] heart without angina pectoris 05/14/2018 Overview: Sees Cardiology in [place] History of coronary artery stent placement 05/14 Overview: 2016 stent placed HTN, goal below 140/90 05/14/2018 Hyperlipidemia with target LDL less than 70 02/2018 Chronic GERD 05/14/2018 Mitral valve prolapse 05/14/2018 Fatty liver 05/12/2018 Liver lesion 05/12/2018 documented as of this encounter (statuses as of 01/06/2024) Resolved Problems Problem Noted Date Diagnosed Date Resolved Date DENNIS (acute kidney injury) 04/04/2021 Pancytopenia 01/28/2019 07/07/2019 Subclinical hypothyroidism 06/04/2018 1 Type 2 diabetes mellitus wit h hemoglobin A1c goal of less than 7.0% 05/14/2018 07/08/2023 documented as of this encounter (statuses as of 01/06/2024) Immunizations Name Administration Dates Next Due Pneumococcal Polysaccharide PPV23 (Pneumovax) TDAP (age 10 and older)(Boostrix) 09/08/2015 Zoster Vaccine Recombinant (Shingrix) 02/25/2020 ,01/18/2019 documented as of this encounter Social History Tobacco Use Types Packs/Day Years Used Date Smoking Tobacco: Never Smokeless Tobacco: Former Alcohol Use Standard Drinks/Week Comments Yes 0 (1 standard drink = 0.6 oz pur e alcohol) couple drinks a day PHQ-2 Answer Date Recorded PHQ Adult Total Score 1 01/01/2023 Sex and Gender Information Value Date Recorded Sex Assigned at Not on file Gender Identity Not on file Sexual Orientation Not on file Job Start Date Occupation Industry Not on file Not on file Not on file documented as of this encounter Miscellaneous Notes * Telephone Encounter - Dottie Rutherford RN - 01/06/2024 4:45 PM EDT Completed ABP is available to review attached to order. * Telephone Encounter - Dottie Rutherford RN - 01/02/2024 11:02 AM EDT Please review 24 hour bp report from 12/05/23. documented in this encounter Plan of Treatment Upcoming Encounters Date Type Department Care Team (Late st Contact Info) Description 01/28/2024 8:50 AM EDT Office Visit Family Medicine [address] [place] [phone] [place] [address] 01/29/2024 11:00 AM EDT Imaging Cardiac Studies, [facility] [address] [place] [address] 02/12/2024 8:30 AM EDT Office Visit Pharmacy, [address] [place] [id number] [place] [phone] 08/17/2024 2:20 PM EST Office Visit Nephrology [address] [place] [address] Stacie Estevez MD [address] [place] [address] Scheduled Procedures Name Priority Associated Diagnoses Date/Ti me COLONOSCOPY FLEXIBLE PROXIMA L DIAGNOSTIC Recall History of colon polyps Family history of colon cancer Health Maintenance Due Date Last Done Comments Cologuard 2001 Fecal Occult Blood Test 2001 Sigmoidoscopy 2001 Pneumococcal Vaccine: 65+ Years (2 of 2 - PCV) 08/13/2019 08/13/2018 HbA1c 12/31/2023 07/01/2023, 0409/2022, 03/06/2022, Additional history exists Depression Screening 01/02/2024 01/01/2023 Diabetic Foot Exam 01/02/2024 01/01/2023, 0 03/06/2022, 02/28/2021, Additional history exists Colonoscopy 03/09/2024 03/09/2019, 03/09/2019 Colorectal Cancer Screening 03/09/2024 Influenza Vaccine (FLU shot) (Season Ended) 2024 Diabetic Eye Exam 08/20/2024 08/20/2023, , 09/25/2021, Additional history exists Albumin/Creatinine Ratio 11/06/2024 024, 07/09/2023, 09/17/2022, Additional history exists TSH 11/06/2024 11/07/2023, 09/08, 08/07/2023, Additional history exists GFR 12/25/2024 12/26/2023, 11/07, 11/07/2023, Additional history exists DTaP,Tdap,and Td Vaccines (2 - Td or Tdap) 09/08/2025 09/08/2015 RETIRED - COLONOSCOPY-EVERY 5 YRS AGES 18-100 Discontinued 03/09/2019, 03/09/2019 Zoster Vaccines Completed 02/25/2020, 01/18/2019 COVID-19 Vaccine Discontinued GARDASIL-HPV IMMUNIZATION SERIES Aged Out No longer eligible based on patient's age to complete this topic Hepatitis B Aged Out No longer eligi ble based on patient's age to complete this topic MENINGOCOCCAL (MENACTRA/MENVEO) Aged Out No longer eligible based on patient's age to complete this topic documented as of this encounter Medical Devices Not on filedocumented as of this encounter Care Teams Helper Driver Relationship Specialty Start Date End Date Pam Marshall DO [address] [place] [address] [place] [phone] PCP - General Internal Medicine 03/06/22 documented as of this encounter
--- OUTSIDE RECORDS SUMMARY | 2024-01-12 03:45 | External Medical Summary | Summary of Care ---
Author Name Unknown Organization [facility] Address [address] [facility] [place] [address] Phone [phone] Care Team Providers Care Neuro Psych Sales Specialist Name Role Phone Marshall, Pamjulia Choudhury Primary Care Provider [phone] Reason for Visit * Reason Comments Blood Pressure Check Encounter Details Date Type Department Care Team (Late st Contact Info) Description 12/04/2023 9:00 AM EDT Nurse Only Nephrology, [facility] [address] [place] [address] Sp, Nurse Nephrology 200 [place] [address] Blood Pressure Check Allergies Active Allergy Reactions Criticality Noted Date Comments Oxycodone-Acetaminophen Itching High 05/12/2018 documented as of this encounter (statuses as of 01/02/2024) Medications Medication Sig Dispensed Refills Start Date End Date Status Aspirin 81 MG Tablet Take 1 Tablet by mouth in the morning. 0 Active Cyanocobalamin (B-12) 1000 MCG TABS Take by mouth. 0 Active Cholecalciferol 50 MCG (1999 [place]) Oral Capsule Take 1 Capsule by mouth in the morning. 0 Active Multiple Vitamins-Mineral s (MULTIVITAMIN MEN 50+) TABS Take by mouth. Pt takes in evening 0 Active [place]-3 Fatty Acids (FISH OIL) 1200 MG CPDR Take by mouth. 0 Active OneTouch Delica Lancets 33GIndications:T ype 2 diabetes mellitus with hemoglobin A1c goal of less than 7.0% ([facility]) Test blood sugar 4 times a day. DX E11.9 400 Each 3 09/11/2022 Active Levothyroxine Sodium 112 MCG Oral Tablet (Levoxyl) Take 1 Tablet by mouth in the morning. (at least 30 min prior to breakfast or other meds). 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 TAKE ONE TABLET BY MOUTH EVERY MORNING 100 Tablet 09/30/2023 Active Nortriptyline HCl 10 MG Oral Capsule (Pamelor) TAKE TWO CAPSULES BY MOUTH EVERY DAY AT BEDTIME 200 Capsule 09/30/2023 Active metFORMIN HCl 1000 MG Oral Tablet (Glucophage)Cristiana cations:Type 2 diabetes mellitus with hemoglobin A1c goal of less than 7.0% (HCC) TAKE ONE TABLET BY MOUTH TWICE A DAY -- IN THE MORNING AND BEFORE BEDTIME 200 Tablet 09/30/2023 Active amLODIPine Besy-Benazepril HCl 10-40 MG Oral Capsule (Lotrel)Indicati ons:HTN, goal below 140/90 TAKE ONE CAPSULE BY MOUTH EVERY MORNING 100 Capsule 1 09/30/2023 Active Additional Information Patient taking differently: [...] 09/30/2023 Active Spironolactone 25 MG Oral Tablet (Aldactone)Indic ations:HTN, goal below 140/90 TAKE ONE TABLET BY MOUTH EVERY MORNING 100 Tablet 1 09/30/2023 Active Atorvastatin Calcium 40 MG Oral Tablet (Lipitor)Indicat ions:Hyperlipide sonia with target LDL less than 70 TAKE ONE TABLET BY MOUTH EVERY DAY 100 Tablet 09/30/2023 Active Additional Information Patient taking differently: TAKES IN THE EVENING, Reported on 11/11/2023 Iron (Ferrous Sulfate) 325 (65 Fe) MG Oral Tablet 1 tablet daily 0 11/06/2023 Active Chlorthalidone 25 MG Oral Tablet (Hygroton) Take one-half tablet by mouth in the morning. 45 Tablet 3 11/11/2023 Active Triamcinolone Acetonide 0.5 % External CreamIndications :Psoriasis APPLY TO AFFECTED AREA TWICE A DAY 30 g 11 05/03/2021 4 Discontinue d(Refill) Tadalafil 10 MG Oral Tablet (Cialis) Take 1 Tablet by mouth daily as needed for Erectile Dysfunction. prior to intercourse, no more than 1 dose in 24 hours 4 Tablet 11 01/01/2023 4 Discontinue d(Refill) Metoprolol Succinate ER 100 MG Oral Tablet Extended Release 24 Hour (toPROL XL) TAKE ONE TABLET BY MOUTH EVERY EVENING (IN ADDITION TO THE 50 MG TABLET IN THE MORNING) 100 Tablet 3 11/21/2022 4 Discontinue d(Refill) Metoprolol Succinate ER 50 MG Oral Tablet Extended Release 24 Hour (toPROL XL) TAKE ONE TABLET BY MOUTH EVERY MORNING (IN ADDDITION TO 100 MG TABLET IN THE EVENING) 100 Tablet 3 11/21/2022 4 Discontinue d(Refill) documented as of this encounter (statuses as of 01/02/2024) Active Problems Problem Noted Date Diagnosed Date [...] Advised 5 year follow up. Done in [place]. Records requested. Family history of prostate cancer in father 05/10 Gout 05/14/2018 Coronary artery disease invo lving [place] coronary artery of [place] heart without angina pectoris 05/14/2018 Overview: Sees Cardiology in [place] History of coronary artery stent placement 05/14 Overview: 2016 stent placed HTN, goal below 140/90 05/14/2018 Hyperlipidemia with target LDL less than 70 02/2018 Chronic GERD 05/14/2018 Mitral valve prolapse 05/14/2018 Fatty liver 05/12/2018 Liver lesion 05/12/2018 documented as of this encounter (statuses as of 01/02/2024) Resolved Problems Problem Noted Date Diagnosed Date Resolved Date DENNIS (acute kidney injury) 04/04/2021 Pancytopenia 01/28/2019 07/07/2019 Subclinical hypothyroidism 06/04/2018 1 Type 2 diabetes mellitus wit h hemoglobin A1c goal of less than 7.0% 05/14/2018 07/08/2023 documented as of this encounter (statuses as of 01/02/2024) Immunizations Name Administration Dates Next Due Pneumococcal Polysaccharide PPV23 (Pneumovax) TDAP (age 10 and older)(Boostrix) 09/08/2015 Zoster Vaccine Recombinant (Shingrix) 02/25/2020 ,01/18/2019 documented as of this encounter Social History Tobacco Use Types Packs/Day Years Used Date Smoking Tobacco: Never Smokeless Tobacco: Former Tobacco Cessation:Counseling Given: Not Answered Alcohol Use Standard Drinks/Week Comments Yes 0 [...] on file documented as of this encounter Last Filed Vital Signs Vital Sign Reading Time Taken Comments Blood Pressure 133/76 12/04/2023 9:47 AM EDT pritesh e average Pulse 74 12/04/2023 9:47 AM EDT Temperature - - Respiratory Rate - - Oxygen Saturation - - Inhaled Oxygen Concentration - - Weight - - Height - - Body Mass Index - - documented in this encounter Progress Notes * Dottie Rutherford RN - 12/05/2023 2:00 PM EDT 24 hour bp monitor complete and returned for interpretation. documented in this encounter Nursing Notes * Dottie Rutherford RN - 12/04/2023 9:46 AM EDT Ambulatory BP cuff size regular applied to left arm. BP monitor number [id number]. Log sheet, instructions on use and recording of activities explained to patient/caregiver with verbal understanding of same. Pt also brought new Omron home cuff in for validation. Demonstrated proper application and use. documented in this encounter Plan of Treatment Upcoming Encounters Date Type Department Care Team (Late st Contact Info) Description 01/28/2024 8:50 AM EDT Office Visit Family Medicine [address] [place] [phone] Pam Marshall[address] [place] [address] 01/29/2024 11:00 AM EDT Imaging Cardiac Studies, [facility] [address] [facility] [place] [address] 02/12/2024 8:30 AM EDT Office Visit Pharmacy, [address] [place] [address] [place] [address] 08/17/2024 2:20 PM EST Office Visit Nephrology [address] [place] [address] Stacie Estevez MD [address] [place] [address] [place] [address] Scheduled Procedures Name Priority Associated Diagnoses Date/Ti me COLONOSCOPY FLEXIBLE PROXIMA L DIAGNOSTIC Recall History of colon polyps Family history of colon cancer Health Maintenance Due Date Last Done Comments Pneumococcal Vaccine: 65+ Years (2 of 2 - PCV) 08/13/2019 08/13/2018 HbA1c 12/31/2023 07/01/2023, 04/09/2022, 03/06/2022, Additional history exists Depression Screening 01/02/2024 01/01/2023 Diabetic Foot Exam 01/02/2024 01/01/2023, 0 03/06/2022, 02/28/2021, Additional history exists COLONOSCOPY-EVERY 5 YRS AGES 18-100 03/09/2024 03/09/2019, 03/09/2019 Influenza Vaccine (FLU shot) (Season Ended) 2024 Diabetic Eye Exam 08/20/2024 08/20/2023, , 09/25/2021, Additional history exists Albumin/Creatinine Ratio 11/06/2024 024, 07/09/2023, 09/17/2022, Additional history exists TSH 11/06/2024 11/07/2023, 09/08, 08/07/2023, Additional history exists GFR 12/25/2024 12/26/2023, 11/07, 11/07/2023, Additional history exists DTaP,Tdap,and Td Vaccines (2 - Td or Tdap) 09/08/2025 09/08/2015 Zoster Vaccines Completed 02/25/2020, 01/18/2019 COVID-19 Vaccine [...] filedocumented as of this encounter Care Teams Neuro Psych Sales Specialist Relationship Specialty Start Date End Date Pam Marshall DO [address] [place] [address] [place] [address] PCP - General Internal Medicine 03/06/22 documented as of this encounter
--- OUTSIDE RECORDS SUMMARY | 2024-01-12 03:45 | External Medical Summary | Summary of Care ---
Author Name Unknown Organization [facility] Address [address] [facility] [place] [address] Phone [phone] Care Team Providers Care Bag Machine Helper Name Role Phone Marshall, Pamjulia Choudhury Primary Care Provider [phone] Reason for Visit * Reason Comments Blood Pressure Check Encounter Details Date Type Department Care Team (Late st Contact Info) Description 12/04/2023 9:00 AM EDT Nurse Only Nephrology, [facility] [address] [place] [address] Sp, Nurse Nephrology 200 [place] [address] Blood Pressure Check Allergies Active Allergy Reactions Criticality Noted Date Comments Oxycodone-Acetaminophen Itching High 05/12/2018 documented as of this encounter (statuses as of 01/05/2024) Medications Medication Sig Dispensed Refills Start Date [...] mouth. Pt takes in evening 0 Active [place]-3 Fatty Acids (FISH OIL) 1200 MG CPDR Take by mouth. 0 Active OneTouch Delica Lancets 33GIndications:T ype 2 diabetes mellitus with hemoglobin A1c goal of less than 7.0% ([facility]) Test blood sugar 4 times a day. [...] as of this encounter (statuses as of 01/05/2024) Active Problems Problem Noted Date Diagnosed Date [...] Advised 5 year follow up. Done in [place]. Records requested. Family history of prostate cancer in father 05/10 Gout 05/14/2018 Coronary artery disease invo lving [place] coronary artery of [place] heart without angina pectoris 05/14/2018 Overview: Sees Cardiology in [place] History of coronary artery stent placement 05/14 Overview: 2016 stent placed HTN, goal below 140/90 05/14/2018 Hyperlipidemia with target LDL less than 70 02/2018 Chronic GERD 05/14/2018 Mitral valve prolapse 05/14/2018 Fatty liver 05/12/2018 Liver lesion 05/12/2018 documented as of this encounter (statuses as of 01/05/2024) Resolved Problems Problem Noted Date Diagnosed Date Resolved Date DENNIS (acute kidney injury) 04/04/2021 Pancytopenia 01/28/2019 07/07/2019 Subclinical hypothyroidism 06/04/2018 1 Type 2 diabetes mellitus wit h hemoglobin A1c goal of less than 7.0% 05/14/2018 07/08/2023 documented as of this encounter (statuses as of 01/05/2024) Immunizations Name Administration Dates Next Due Pneumococcal [...] documented in this encounter Progress Notes * Su Meyer MD - 01/05/2024 5:43 PM EDT 24-hour ambulatory BP report Date 12/05/23 Reason for study - evaluate for white coat hypertension BP cuff was placed in clinic by nursing staff, pt was given instructions on wearing the ABPM devicefor 24 hours, and then returned the device. The data was recorded and downloaded from the ABPM device, analyzed, and interpreted as below in this report. # of daytime BP readings 31 # of nighttime BP readings 8 Adequate # of readings? 39 adequate for interpretation (at least 14 daytime and 7 nighttime optimal) % successful readings? 89% (at least 80% optimal) Average 24-hour BP 111/63, HR 74 Average awake BP 118/67, HR 75 Average asleep BP 96/53, HR 72 Dipping (% decrease at nighttime vs. Daytime) Systolic 18.6 Diastolic 21.8 INTERPRETATION: BP Readings from Last 5 Encounters: 01/02/24 : 184/89 12/04/23 : 133/76 11/11/23 : 155/65 11/06/23 : 156/78 07/08/23 : 162/90 Blood pressure is well controlled during this 24 hour period according to 2017 ACC/AHA guidelines. Blood pressure targets should be individualized for each patient's unique clinical situation. Correlation of these 24 hour readings with available office readings above suggests white coat hypertension. This assumes that no lifestyle or medication changes have occurred in the interval betweenclinic readings and this 24 hour procedure. Further recommendations per referring knowledge management advisor Dr. Estevez A copy of the full report will be scanned into the chart. Su Meyer MD. This note was generated using voice recognition software. Please excuse errors * Dottie Rutherford RN - 12/05/2023 2:00 PM EDT 24 hour bp monitor complete and returned for interpretation. documented in this encounter Nursing Notes * Dottie Rutherford RN - 12/04/2023 9:46 AM EDT Ambulatory BP cuff size regular applied to left arm. BP monitor number [id number]. Log sheet, instructions on use and recording of activities explained to patient/caregiver with verbal understanding of same. Pt also brought new Omron home cuff in for validation. Demonstrated proper application and use. documented in this encounter Plan of Treatment Upcoming Encounters Date Type Department Care Team (Late st Contact Info) Description 01/28/2024 8:50 AM EDT Office Visit Family Medicine [address] [place] [phone] Pam [address] [place] [address] 01/29/2024 11:00 AM EDT Imaging Cardiac Studies, [facility] [address] [facility] [place] [address] 02/12/2024 8:30 AM EDT Office Visit Pharmacy, [address] [place] [address] [place] [address] 08/17/2024 2:20 PM EST Office Visit Nephrology [address] [place] [address] Stacie Estevez MD 200 [facility] [place] [address] Scheduled Procedures Name Priority Associated Diagnoses Date/Ti me COLONOSCOPY FLEXIBLE PROXIMA L DIAGNOSTIC Recall History of colon polyps Family history of colon cancer Health Maintenance Due Date Last Done Comments Cologuard 2001 Fecal Occult Blood Test 2001 Sigmoidoscopy 2001 Pneumococcal Vaccine: 65+ Years (2 of 2 - PCV) 08/13/2019 08/13/2018 HbA1c 12/31/2023 07/01/2023, 12/08, 03/06/2022, Additional history exists Depression Screening 01/02/2024 [...] Not on filedocumented as of this encounter Visit Diagnoses Diagnosis HTN, goal below 140/90 [I10]- Primary Unspecified essential hypertension documented in this encounter Care Teams Bag Machine Helper Relationship Specialty Start Date End Date Pam Marshall DO [address] [place] [address] [place] [address] PCP - General Internal Medicine 03/06/22 documented as of this encounter
--- OUTSIDE RECORDS SUMMARY | 2024-01-12 03:45 | External Medical Summary | Summary of Care ---
Author Name Unknown Organization [facility] Address [address] [facility] [place] [address] Phone [phone] Care Team Providers Care Chemistry Quality Control Analyst Name Role Phone Pam Marshall Mae Primary Care Provider [phone] Reason for Visit * Reason Onset Date Comments Blood Pressure Readings 01/07/2024 Encounter Details Date Type Department Care Team (Late st Contact Info) Description 01/07/2024 Telephone Nephrology, [facility] [address] [place] [address] Stacie Estevez MD 200 [facility] [place] [address] Blood Pressure Readings Allergies Active Allergy Reactions Criticality Noted Date Comments Oxycodone-Acetaminophen Itching High 05/12/2018 documented as of this encounter (statuses as of 01/07/2024) Medications Medication Sig Dispensed Refills Start Date [...] mouth. Pt takes in evening 0 Active [place]-3 Fatty Acids (FISH OIL) 1200 MG CPDR Take by mouth. 0 Active OneTouch Delica Lancets 33GIndications:Ty pe 2 diabetes mellitus with hemoglobin A1c goal of less than 7.0% ([facility]) Test blood sugar 4 times a [...] as of this encounter (statuses as of 01/07/2024) Active Problems Problem Noted Date Diagnosed Date [...] Advised 5 year follow up. Done in [place]. Records requested. Family history of prostate cancer in father 05/10 Gout 05/14/2018 Coronary artery disease invo lving [place] coronary artery of [place] heart without angina pectoris 05/14/2018 Overview: Sees Cardiology in [place] History of coronary artery stent placement 05/14 Overview: 2016 stent placed HTN, goal below 140/90 05/14/2018 Hyperlipidemia with target LDL less than 70 02/2018 Chronic GERD 05/14/2018 Mitral valve prolapse 05/14/2018 Fatty liver 05/12/2018 Liver lesion 05/12/2018 documented as of this encounter (statuses as of 01/07/2024) Resolved Problems Problem Noted Date Diagnosed Date Resolved Date DENNIS (acute kidney injury) 04/04/2021 Pancytopenia 01/28/2019 07/07/2019 Subclinical hypothyroidism 06/04/2018 1 Type 2 diabetes mellitus wit h hemoglobin A1c goal of less than 7.0% 05/14/2018 07/08/2023 documented as of this encounter (statuses as of 01/07/2024) Immunizations Name Administration Dates Next Due Pneumococcal [...] encounter Miscellaneous Notes * Telephone Encounter - Concepción Briones LPN - 01/07/2024 12:39 PM EDT Attempted to contact [facility] will send MyG message regarding BP readings * Telephone Encounter - Stacie Estevez MD - 01/07/2024 12:05 PM EDT Great news regarding home BP / 24 hr bp study >> his BP is controlled; he definitely has white coat HTN See average awake, asleep, 24 hr BP below. For now no changes to care. Apologies for delayed response on study Latest Reference Range & Units 12/05/23 00:00 Awake SBP <130 118 Awake DBP <80 67 awake HR 75 sleep SBP <110 96 sleep DBP <65 53 sleep HR 72 24-hr SBP <125 111 24-hr DBP <75 63 24-hr HR 74 number of awake readings 31 number of sleep readings 8 SBP dipping percentage 18.6 DBP dipping percentage 21.8 documented in this encounter Plan of Treatment Upcoming Encounters Date Type Department Care Team (Late st Contact Info) Description 01/28/2024 8:50 AM EDT Office Visit Family Medicine [address] [place] [phone] Pam Marshall[address] [place] [address] 01/29/2024 11:00 AM EDT Imaging Cardiac Studies, [address] [place] [address] 02/12/2024 8:30 AM EDT Office Visit Pharmacy, [address] [place] [address] [place] [address] 08/17/2024 2:20 PM EST Office Visit Nephrology [address] [place] [address] Stacie Estevez MD [address] [place] [address] [place] [address] Scheduled Procedures Name Priority Associated Diagnoses Date/Ti [...] filedocumented as of this encounter Care Teams Chemistry Quality Control Analyst Relationship Specialty Start Date End Date Pam Marshall DO [address] [place] [address] [place] [phone] PCP - General Internal Medicine 03/06/22 documented as of this encounter
--- OUTSIDE RECORDS SUMMARY | 2024-01-12 03:45 | External Medical Summary | Summary of Care ---
Author Name Unknown Organization [facility] Address [address] [facility] [place] [address] Phone [phone] Care Team Providers Care Air Reduction Equipment Operator Name Role Phone Marshall, Pamjulia Choudhury Primary Care Provider Reason for Visit * Reason Onset Date Comments Referral 12/26/2023 MTDM discharge H [place] referral Encounter Details Date Type Department Care Team (Late st Contact Info) Description 12/26/2023 Telephone Pharmacy, [address] [place] [address] [place] [address] Referral (MTD discharge HTN referral ) Allergies Active Allergy Reactions Criticality Noted Date Comments Oxycodone-Acetaminophen Itching High 05/12/2018 documented as of this encounter (statuses as of 01/01/2024) Medications Medication Sig Dispensed Refills Start Date [...] mouth. Pt takes in evening 0 Active [place]-3 Fatty Acids (FISH OIL) 1200 MG CPDR Take by mouth. 0 Active OneTouch Delica Lancets 33GIndications:Ty pe 2 diabetes mellitus with hemoglobin A1c goal of less than 7.0% (HCC) Test blood sugar 4 times a day. [...] MOUTH EVERY DAY AT BEDTIME 200 Capsule 1 09/30/2023 Active metFORMIN HCl 1000 MG Oral Tablet (Glucophage)Indic ations:Type 2 diabetes mellitus with hemoglobin A1c goal of less than 7.0% ([facility]) TAKE ONE TABLET BY MOUTH TWICE A [...] as of this encounter (statuses as of 01/01/2024) Active Problems Problem Noted Date Diagnosed Date [...] Advised 5 year follow up. Done in [place]. Records requested. Family history of prostate cancer in father 05/10 Gout 05/14/2018 Coronary artery disease invo lving [place] coronary artery of [place] heart without angina pectoris 05/14/2018 Overview: Sees Cardiology in [place] History of coronary artery stent placement 05/14 Overview: 2016 stent placed HTN, goal below 140/90 05/14/2018 Hyperlipidemia with target LDL less than 70 0902/2018 Chronic GERD 05/14/2018 Mitral valve prolapse 05/14/2018 Fatty liver 05/12/2018 Liver lesion 05/12/2018 documented as of this encounter (statuses as of 01/01/2024) Resolved Problems Problem Noted Date Diagnosed Date Resolved Date DENNIS (acute kidney injury) 04/04/2021 Pancytopenia 01/28/2019 07/07/2019 Subclinical hypothyroidism 06/04/2018 1 Type 2 diabetes mellitus wit h hemoglobin A1c goal of less than 7.0% 05/14/2018 07/08/2023 documented as of this encounter (statuses as of 01/01/2024) Immunizations Name Administration Dates Next Due Pneumococcal [...] encounter Miscellaneous Notes * Telephone Encounter - Julianna Andino RPh - 01/01/2024 12:16 PM EDT Per chart review, patient now scheduled with [facility] on 01/01. FYI Dr Piyush Andino RPh, PharmD Clinical Pharmacist - Kitchen Assistant Medication Therapy [facility] 01/01/2024, 12:16 PM [phone] * Telephone Encounter - Concepción Briones LPN - 01/01/2024 11:55 AM EDT Pt is schedule for 08/17/24 Needs 2 months f/u can be with [place] in [place] Please arrange f/u apt with [facility] Thank you * Telephone Encounter - Stacie Estevez MD - 01/01/2024 10:18 AM EDT Noted. This is unfortunate but appreciate team efforts [place] Man/renal nurse pls make sure he's on schedule per planned f/u w/ nephro * Telephone Encounter - Julianna Andino RPh - 12/26/2023 3:08 PM EDT Noted by [facility]. Routing to nephrology to make aware. Julianna Andino RPh, PharmD Clinical Pharmacist - Kitchen Assistant Medication Therapy [facility] 12/26/2023, 3:08 PM [phone] * Telephone Encounter - Benjamin Salazar PHARM Tech - 12/26/2023 9:36 AM EDT Magan has not contacted the clinic to schedule/reschedule an appointment for HTN management per referral from PCP despite multiple attempts to do so by our team. Patient is discharged from [facility] services at this time. Thank you, Benjamin Salazar [employer] [facility] (Formerly [facility]) [phone] 12/26/2023,9:36 AM documented in this encounter Plan of Treatment Upcoming Encounters Date Type Department Care Team (Late st Contact Info) Description 01/02/2024 8:50 AM EDT Office Visit Pharmacy, [address] [place] [address] [place] [address] 01/28/2024 8:50 AM EDT Office Visit Family Medicine [address] [place] [phone] Pam Marshall[address] [place] [address] 01/29/2024 11:00 AM EDT Imaging Cardiac Studies, [facility] [address] [place] [address] 08/17/2024 2:20 PM EST Office Visit Nephrology [address] [place] [address] Stacie Estevez MD [address] [place] [address] Scheduled Procedures Name Priority Associated Diagnoses Date/Ti [...] , 09/25/2021, Additional history exists Albumin/Creatinine Ratio 11/06/20242 024, 07/09/2023, 09/17/2022, Additional history exists TSH [...] filedocumented as of this encounter Care Teams Air Reduction Equipment Operator Relationship Specialty Start Date End Date Pam Marshall DO [address] [place] [address] [place] [address] PCP - General Internal Medicine 03/06/22 documented as of this encounter
--- OUTSIDE RECORDS SUMMARY | 2024-01-12 03:45 | External Medical Summary | Summary of Care ---
Author Name Unknown Organization [facility] Address [address] [facility] [place] [address] Phone [phone] Care Team Providers Care Adult Secondary Education Instructor Name Role Phone Rolando Pamjulia Choudhury Primary Care Provider [phone] Reason for Visit * Reason Onset Date Comments Test Results 12/29/2023 Encounter Details Date Type Department Care Team (Late st Contact Info) Description 12/29/2023 Telephone Nephrology, Tameka Arias [address] [place] [address] Stacie Estevez MD 200 [place] [address] Test Results Allergies Active Allergy Reactions Criticality Noted Date Comments Oxycodone-Acetaminophen Itching High 05/12/2018 documented as of this encounter (statuses as of 12/29/2023) Medications Medication Sig Dispensed Refills Start Date [...] mouth. Pt takes in evening 0 Active [place]-3 Fatty Acids (FISH OIL) 1200 MG CPDR Take by mouth. 0 Active OneTouch Delica Lancets 33GIndications:Ty pe 2 diabetes mellitus with hemoglobin A1c goal of less than 7.0% ([facility]) Test blood sugar 4 times a day. [...] as of this encounter (statuses as of 12/29/2023) Active Problems Problem Noted Date Diagnosed Date [...] 5 year follow up. Done in [place]. Records requested. Family history of prostate cancer in father 05/10 Gout 05/14/2018 Coronary artery disease invo lving [place] coronary artery of [place] heart without angina pectoris 05/14/2018 Overview: Sees Cardiology in [place] History of coronary artery stent placement 05/14 Overview: 2016 stent placed HTN, goal below 140/90 05/14/2018 Hyperlipidemia with target LDL less than 70 02/2018 Chronic GERD 05/14/2018 Mitral valve prolapse 05/14/2018 Fatty liver 05/12/2018 Liver lesion 05/12/2018 documented as of this encounter (statuses as of 12/29/2023) Resolved Problems Problem Noted Date Diagnosed Date Resolved Date DENNIS (acute kidney injury) 04/04/2021 Pancytopenia 01/28/2019 07/07/2019 Subclinical hypothyroidism 06/04/2018 1 Type 2 diabetes mellitus wit h hemoglobin A1c goal of less than 7.0% 05/14/2018 07/08/2023 documented as of this encounter (statuses as of 12/29/2023) Immunizations Name Administration Dates Next Due Pneumococcal [...] Telephone Encounter - Dottie Rutherford RN - 12/29/2023 11:07 AM EDT Message sent to provider regarding lab results. * Telephone Encounter - Dottie Rutherford RN - 12/29/2023 11:07 AM EDT ----- Message from Stacie Estevez MD sent at 12/19/2023 1:09 PM EDT ----- Ping me when his repeat bmp posts documented in this encounter Plan of Treatment Upcoming Encounters Date Type Department Care Team (Late st Contact Info) Description 01/28/2024 8:50 AM EDT Office Visit Family Medicine [address] [place] [phone] [place] [address] 01/29/2024 11:00 AM EDT Imaging Cardiac Studies, [facility] [address] [facility] [place] [address] 08/17/2024 2:20 PM EST Office Visit Nephrology [address] [place] [address] Stacie Estevez MD [address] [place] [address] Scheduled Procedures Name Priority Associated Diagnoses Date/Ti [...] filedocumented as of this encounter Care Teams Adult Secondary Education Instructor Relationship Specialty Start Date End Date Pam Marshall DO [address] [place] [address] [place] [address] PCP - General Internal Medicine 03/06/22 documented as of this encounter
--- OUTSIDE RECORDS SUMMARY | 2024-01-12 03:45 | External Medical Summary | Summary of Care ---
Author Name Unknown Organization [facility] Address [address] [facility] [place] [address] Phone [phone] Care Team Providers Care Creative Specialist Name Role Phone Rolando Pamjulia Choudhury Primary Care Provider [phone] Reason for Visit * Reason Onset Date Comments Test Results 01/02/2024 Encounter Details Date Type Department Care Team (Late st Contact Info) Description 01/02/2024 Telephone Nephrology, Tameka Arias [address] [place] [address] Stacie Estevez MD 200 [facility] [place] [address] Test Results Allergies Active Allergy Reactions Criticality [...] mouth. Pt takes in evening 0 Active [place]-3 Fatty Acids (FISH OIL) 1200 MG CPDR Take by mouth. 0 Active OneTouch Delica Lancets 33GIndications:Ty pe 2 diabetes mellitus with hemoglobin A1c goal of less than 7.0% ([facility]) Test blood sugar 4 times a [...] Advised 5 year follow up. Done in [place]. Records requested. Family history of prostate cancer in father 05/10 Gout 05/14/2018 Coronary artery disease invo lving [place] coronary artery of [place] heart without angina pectoris 05/14/2018 Overview: Sees Cardiology in [place] History of coronary artery stent placement 05/14 [...] Encounter - Dottie Rutherford RN - 01/02/2024 11:10 AM EDT ----- Message from Stacie Estevez MD sent at 01/02/2024 10:55 AM EDT ----- Kidney function recovered from DENNIS last month which is good Any updates on results of 24 hr bp study done 12/04 ? documented in this encounter Plan of Treatment Upcoming Encounters Date Type Department Care Team (Late st Contact Info) Description 01/28/2024 8:50 AM EDT Office Visit [address] [phone] Pam Marshall, [address] [place] [address] 01/29/2024 11:00 AM EDT Imaging Cardiac Studies, [facility] [address] [place] [address] 02/12/2024 8:30 AM EDT Office Visit Pharmacy, [address] [place] [address] [place] [address] 08/17/2024 2:20 PM EST Office Visit Nephrology [address] [place] [address] Stacie Estevez MD [address] [facility] [address] Scheduled Procedures Name Priority Associated Diagnoses Date/Ti [...] filedocumented as of this encounter Care Teams Creative Specialist Relationship Specialty Start Date End Date Pam Marshall DO [address] [place] [address] [place] [phone] PCP - General Internal Medicine 03/06/22 documented as of this encounter
--- OUTSIDE RECORDS SUMMARY | 2024-01-12 03:45 | External Medical Summary | Summary of Care ---
Author Name Unknown Organization [facility] Address [address] [facility] [place] [address] Phone [phone] Care Team Providers Care Manager Home Name Role Phone Marshall, Pamjulia Choudhury Primary Care Provider [phone] Reason for Visit * Reason Onset Date Comments Referral 12/26/2023 MTDM discharge H [place] referral Encounter Details Date Type Department Care Team (Late st Contact Info) Description 12/26/2023 Telephone Pharmacy, [address] [place] [address] [place] [address] Referral (MTD discharge HTN referral ) Allergies [...] mouth. Pt takes in evening 0 Active [place]-3 Fatty Acids (FISH OIL) 1200 MG CPDR [...] hemoglobin A1c goal of less than 7.0% ([facility]) TAKE ONE TABLET BY MOUTH TWICE A [...] Advised 5 year follow up. Done in [place]. Records requested. 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 Routing to nephrology to make aware. Julianna Andino RPh, PharmD Clinical Pharmacist - [facility] 12/26/2023, 3:08 PM Ph.[phone] * Telephone Encounter - Benjamin Salazar PHARM Tech - 12/26/2023 9:36 AM EDT Magan has not contacted the clinic to schedule/reschedule an appointment for HTN management per referral from PCP despite multiple attempts to do so by our team. Patient is discharged from [facility] services at this time. Thank you, Benjamin Salazar Digital Computer Operator [facility]) (Formerly Telepharmacy) [phone] 12/26/2023,9:36 AM documented in this encounter Plan of Treatment Upcoming Encounters Date Type Department Care Team (Late st Contact Info) Description 01/02/2024 8:50 AM EDT Office Visit Pharmacy, [address] [place] [address] [place] [address] 01/28/2024 8:50 AM EDT Office Visit Family Medicine [address] [place] [phone] Pam [address] [place] [address] 01/29/2024 11:00 AM EDT Imaging Cardiac Studies, [address] [place] [address] 08/17/2024 2:20 PM EST Office Visit Nephrology [address] [place] [address] Stacie Estevez MD [address] [place] [address] Scheduled Procedures Name Priority Associated Diagnoses Date/Ti [...] filedocumented as of this encounter Care Teams Manager Home Relationship Specialty Start Date End Date Pam Marshall DO [address] [place] [address] [place] [address] PCP - General Internal Medicine 03/06/22 documented as of this encounter
--- OUTSIDE RECORDS SUMMARY | 2024-01-12 03:45 | External Medical Summary | Summary of Care ---
Author Name Unknown Organization [facility] Address [address] [facility] [place] [address] Phone [phone] Care Team Providers Care Esl Professor Name Role Phone Marshall, Pamjulia Choudhury Primary Care Provider Reason for Visit * Reason Onset Date Comments Referral 12/26/2023 MTDM discharge H [place] referral Encounter Details Date Type Department Care Team (Late st Contact Info) Description 12/26/2023 Telephone Pharmacy, [address] [place] [address] [place] [address] Referral (MTD discharge HTN referral ) Allergies [...] mouth. Pt takes in evening 0 Active [place]-3 Fatty Acids (FISH OIL) 1200 MG CPDR [...] hemoglobin A1c goal of less than 7.0% ([facility]) TAKE ONE TABLET BY MOUTH TWICE A [...] Advised 5 year follow up. Done in [place]. Records requested. Family history of prostate cancer in father 05/10 Gout 05/14/2018 Coronary artery disease invo lving [place] coronary artery of [place] heart without angina pectoris 05/14/2018 Overview: Sees Cardiology in [place] History of coronary artery stent placement 05/14 [...] encounter Miscellaneous Notes * Telephone Encounter - Stacie Estevez MD - 01/01/2024 10:18 AM EDT Noted. This is unfortunate but appreciate team efforts Veterinary Assistant Technician/renal nurse pls make sure he's on schedule per planned f/u w/ nephro * Telephone Encounter - Julianna Andino RPh - 12/26/2023 3:08 PM EDT Noted by [facility]. Routing to nephrology to make aware. Julianna Andino RPh, PharmD Clinical Pharmacist - [facility] 12/26/2023, 3:08 PM Ph.[phone] * Telephone Encounter - Benjamin Salazar PHARM Tech - 12/26/2023 9:36 AM EDT Magan has not contacted the clinic to schedule/reschedule an appointment for HTN management per referral from PCP despite multiple attempts to do so by our team. Patient is discharged from [facility] services at this time. Thank you, Benjamin Salazar Bag Inspector [facility]) (Formerly Telepharmacy) [phone] 12/26/2023,9:36 AM documented in this encounter Plan of Treatment Upcoming Encounters Date Type Department Care Team (Late st Contact Info) Description 01/02/2024 8:50 AM EDT Office Visit Pharmacy, [address] [place] [address] [place] [address] 01/28/2024 8:50 AM EDT Office Visit Family Medicine [address] [place] [phone] [place] [address] 01/29/2024 11:00 AM EDT Imaging Cardiac Studies, [facility] [place] [address] [place] [address] 08/17/2024 2:20 PM EST Office Visit Nephrology [address] [place] [address] Stacie Estevez MD 200 [place] [address] Scheduled Procedures Name Priority Associated Diagnoses Date/Ti [...] filedocumented as of this encounter Care Teams Esl Professor Relationship Specialty Start Date End Date Pam Marshall DO [address] [place] [address] [place] [address] PCP - General Internal Medicine 03/06/22 documented as of this encounter
--- OUTSIDE RECORDS SUMMARY | 2024-01-12 03:45 | External Medical Summary | Summary of Care ---
Author Name Unknown Organization [facility] Address [address] [facility] [place] [address] Phone [phone] Care Team Providers Care Physician Obstetrician Name Role Phone Pam Marshall Mae Primary Care Provider [phone] Reason for Visit * Reason Onset Date Comments Blood Pressure Check 01/02/2024 Encounter Details Date Type Department Care Team (Late st Contact Info) Description 01/02/2024 Telephone Nephrology, Tameka Arias [address] [place] [address] Stacie Estevez MD 200 [place] [address] Blood Pressure Check Allergies Active Allergy Reactions Criticality Noted Date Comments Oxycodone-Acetaminophen Itching High 05/12/2018 documented as of this encounter (statuses as of 01/09/2024) Medications Medication Sig Dispensed Refills Start Date [...] mouth. Pt takes in evening 0 Active [place]-3 Fatty Acids (FISH OIL) 1200 MG CPDR Take by mouth. 0 Active OneTouch Delica Lancets 33GIndications:Ty pe 2 diabetes mellitus with hemoglobin A1c goal of less than 7.0% ([facility]) Test blood sugar 4 times a day. [...] as of this encounter (statuses as of 01/09/2024) Active Problems Problem Noted Date Diagnosed Date [...] Gout 05/14/2018 Coronary artery disease invo lving [place] coronary artery of [place] heart without angina pectoris 05/14/2018 Overview: Sees Cardiology in [place] History of coronary artery stent placement 05/14 Overview: 2016 stent placed HTN, goal below 140/90 05/14/2018 Hyperlipidemia with target LDL less than 70 02/2018 Chronic GERD 05/14/2018 Mitral valve prolapse 05/14/2018 Fatty liver 05/12/2018 Liver lesion 05/12/2018 documented as of this encounter (statuses as of 01/09/2024) Resolved Problems Problem Noted Date Diagnosed Date Resolved Date DENNIS (acute kidney injury) 04/04/2021 Pancytopenia 01/28/2019 07/07/2019 Subclinical hypothyroidism 06/04/2018 1 Type 2 diabetes mellitus wit h hemoglobin A1c goal of less than 7.0% 05/14/2018 07/08/2023 documented as of this encounter (statuses as of 01/09/2024) Immunizations Name Administration Dates Next Due Pneumococcal [...] Telephone Encounter - Stacie Estevez MD - 01/09/2024 5:20 PM EDT December 05, 2023 ambulatory blood pressure study # of daytime BP readings 31 # of nighttime BP readings 8 Adequate # of readings? 39 adequate for interpretation (at least 14 daytime and 7 nighttime optimal) % successful readings? 89% (at least 80% optimal) Average 24-hour BP 111/63, HR 74 Average awake BP 118/67, HR 75 Average asleep BP 96/53, HR 72 Patient definitely meets criteria for white coat hypertension. Would not make any medication changes at this time. Please update him * Telephone Encounter - Dottie Rutherford RN [...] 8:50 AM EDT Office Visit Family Medicine [address] [place] [phone] [address] [place] [address] 01/29/2024 11:00 AM EDT Imaging Cardiac Studies, [facility] [address] [facility] [place] [address] 02/12/2024 8:30 AM EDT Office Visit Pharmacy, [address] [place] [address] [place] [address] 08/17/2024 2:20 PM EST Office Visit Nephrology [address] [place] [address] Stacie Estevez MD 200 [facility] [place] [address] Scheduled Procedures Name Priority Associated Diagnoses Date/Ti [...] filedocumented as of this encounter Care Teams Physician Obstetrician Relationship Specialty Start Date End Date Pam Marshall DO [address] [place] [address] [place] [address] PCP - General Internal Medicine 03/06/22 documented as of this encounter
--- OUTSIDE RECORDS SUMMARY | 2024-01-12 03:45 | External Medical Summary | Summary of Care ---
Author Name Unknown Organization [facility] Address [address] [facility] [place] [address] Phone [phone] Care Team Providers Care Agronomy Teacher Name Role Phone MarshallPam ly Primary Care Provider [phone] Reason for Visit * Reason Comments Dosage Adjustment In Person (Anticoag Cl inic) Hypertension * Evaluate & Treat - Unlimited Visits (Within 10 days (routine)) - Authorized Specialty Diagnoses / Procedures Referred By Andrea sotomayor Referred To Contact Pharmacist / Pharmacy Diagnoses Uncontrolled hypertension Elevated blood pressure reading in office with white coat syndrome, with diagnosis of hypertension HTN, goal below 130/80 Stacie Estevez MD [address] [place] [address] Referral ID Status Reason Start Date Expiration Date Visits Requested Visits Authorized [id number] Authorized Specialty Services Required 11/21/2023 99 99 Encounter Details Date Type Department Care Team (Late st Contact Info) Description 01/02/2024 8:50 AM EDT Office Visit Pharmacy, [address] [place] [address] [place] [address] HTN, goal below 140/90* Allergies Active Allergy Reactions Criticality Noted Date [...] mouth. Pt takes in evening 0 Active [place]-3 Fatty Acids (FISH OIL) 1200 MG CPDR [...] TABLET BY MOUTH EVERY DAY 100 Tablet 1 09/30/2023 Active Additional Information Patient taking [...] Advised 5 year follow up. Done in [place]. Records requested. Family history of prostate cancer in father 05/10 Gout 05/14/2018 Coronary artery disease invo lving [place] coronary artery of [place] heart without angina pectoris 05/14/2018 Overview: Sees Cardiology in [place] History of coronary artery stent placement 05/14 [...] Sign Reading Time Taken Comments Blood Pressure 184/89 01/02/2024 4:16 PM EDT Pulse - - Temperature - - Respiratory Rate - - Oxygen Saturation - - Inhaled Oxygen Concentration - - Weight - - Height - - Body Mass Index - - documented in this encounter Progress Notes * Julianna Andino, [facility] - 01/02/2024 8:51 AM EDT PHARMACY CHRONIC DISEASE MANAGEMENT - HYPERTENSION HPI: Magan Lakhani is a 68 year old year old male. Referred for HTN management by Stacie Estevez MD . Blood pressure goal: 130/80 Duration of HTN diagnosis: Unsure Previous medication use: n/a Any contraindications to HTN medications: n/a Current medications which can be elevating BP: none Caffeine use: Denies Alcohol use: Beer Tobacco use: Denies History of sleep apnea: No dx, trouble sleeping Medication compliance: Manages himself Diet review: Trying to follow DM diet; does not add salt to anything. Discussed and reviewed low Nadiet. Exercise review: Reviewed The ASCVD Risk score (Swati SMALLS, et al., 2019) failed to calculate for the following reasons: The patient has a prior [place] or stroke diagnosis Does patient monitor BP at home? yes Home BP log results: Systolic Diastolic Pulse Systolic Diastolic 120 72 Average 122 71 136 72 129 74 High 76 76 126 76 Low 66 66 121 71 128 73 Range 10 10 114 69 Count 11 11 113 66 115 70 124 71 111 69 Does patient monitor HR at home? no Home HR log results: Patient Active Problem List Diagnosis Code Fatty liver K76.0 Liver lesion K76.9 Gout M10.9 Coronary artery disease involving [place] coronary artery of [place] heart without angina pectoris I25.10 History of coronary artery stent placement Z95.5 HTN, goal below 140/90 I10 Hyperlipidemia with target LDL less than 70 E78.5 Chronic GERD K21.9 Mitral valve prolapse I34.1 Benign colonic polyp K63.5 Family history of prostate cancer in father Z80.42 Acquired hypothyroidism E03.9 Isolated proteinuria R80.0 Psoriasis L40.9 BMI 34.0-34.9,adult Z68.34 Type 2 diabetes mellitus with hemoglobin A1c goal of less than 7.5% (HCC) E11.9 Anemia D64.9 Liver hemangioma D18.03 Carpal tunnel syndrome of right wrist G56.01 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, controlled, with peripheral neuropathy (HCC) E11.42 Review of patient's allergies indicates: Allergen Reactions Percocet [Oxycodone-Acetaminophen] Itching Objective: BP Readings from Last 3 Encounters: 01/02/24 184/89 12/04/23 133/76 11/11/23 155/65 Pulse Readings from Last 3 Encounters: 12/04/23 74 11/11/23 53 11/06/23 92 Wt Readings from Last 3 Encounters: 11/11/23 97 kg (213 lb 12.8 oz) 11/06/23 93.2 kg (205 lb 6.4 oz) 07/08/23 92.3 kg (203 lb 6.4 oz) No results found for: "MICROALBUMIN" Current Hypertension Medication(s): Metoprolol Succinate ER 150mg BID Chlorthalidone 25mg 1/2 tablet daily Amlodipine - Benazepril 10-40 mg daily Spironolactone 25mg daily Assessment & Plan: Elevated BP at last nephro OV. Chlorthalidone added, repeat labs showed DENNIS. Now recovered. BP elevated today at OV, however BP log from home is at goal. Patient notes that log is from last month before he went on vacation. Notes that he had a poor diet during that time. Recently did 24 hr BP study, results still pending. Encouraged to start monitoring BP at home againand keeping log. Will bring to next visit and work on lifestyle modifications. Will further assess medication changes at that time and upon assessing BP study results. Medication changes: N/a Labs Due: n/a Follow up: 6 weeks Julianna Andino RPh Clinical Pharmacist 8:51 AM, 01/02/24 documented in this encounter Plan of Treatment Upcoming Encounters Date Type Department Care Team (Late st Contact Info) Description 01/28/2024 8:50 AM EDT Office Visit Family Medicine [address] [place] [phone] Pam Marshall[address] [place] [address] 01/29/2024 11:00 AM EDT Imaging Cardiac Studies, [facility] [place] [address] 02/12/2024 8:30 AM EDT Office Visit Pharmacy, [address] [place] [address] [place] [address] 08/17/2024 2:20 PM EST Office Visit Nephrology [address] [place] [address] Stacie Estevez MD [address] [place] [address] Scheduled Procedures Name Priority Associated Diagnoses Date/Ti me COLONOSCOPY FLEXIBLE PROXIMA L DIAGNOSTIC Recall History of colon polyps Family history of colon cancer Scheduled Referrals Name Type Priority Associated Diagnoses Orde r Schedule PHARMACIST MEDS THERAPY MGMT REFERRAL OP Referral Within 10 days (routine) Uncontrolled hypertension Elevated blood pressure reading in office with white coat syndrome, with diagnosis of hypertension HTN, goal below 130/80 Ordered: 11/21/2023 Health Maintenance Due Date Last Done Comments [...] encounter Visit Diagnoses Diagnosis HTN, goal below 140/90- Primary Unspecified essential hypertension documented in this encounter Care Teams Agronomy Teacher Relationship Specialty Start Date End Date Pam Marshall DO [address] [place] [address] [place] [address] PCP - General Internal Medicine 03/06/22 documented as of this encounter
--- OUTSIDE RECORDS SUMMARY | 2024-01-12 03:45 | External Medical Summary | Summary of Care ---
Author Name Unknown Organization [facility] Address [address] [facility] [place] [address] Phone [phone] Care Team Providers Care Ring Conductor Name Role Phone Pam Marshall Mae Primary Care Provider Reason for Visit * Reason Onset Date Comments Blood Pressure Check 01/02/2024 Encounter Details Date Type Department Care Team (Late st Contact Info) Description 01/02/2024 Telephone Nephrology, Tameka Arias [address] [place] [address] Stacie Estevez MD 200 [place] [address] Blood Pressure Check Allergies Active Allergy Reactions [...] mouth. Pt takes in evening 0 Active [place]-3 Fatty Acids (FISH OIL) 1200 MG CPDR Take by mouth. 0 Active OneTouch Delica Lancets 33GIndications:Ty pe 2 diabetes mellitus with hemoglobin A1c goal of less than 7.0% ([facility]) Test blood sugar 4 times a day. [...] 5 year follow up. Done in [place]. Records requested. Family history of prostate cancer in father 05/10 Gout 05/14/2018 Coronary artery disease invo lving [place] coronary artery of [place] heart without angina pectoris 05/14/2018 Overview: Sees Cardiology in [place] History of coronary artery stent placement 05/14 [...] 8:50 AM EDT Office Visit Family Medicine [address] [place] [phone] Pam Marshall[address] [place] [address] 01/29/2024 11:00 AM EDT Imaging Cardiac Studies, [facility] [address] [place] [id number] 02/12/2024 8:30 AM EDT Office Visit Pharmacy, [address] [place] [phone] [place] [address] 08/17/2024 2:20 PM EST Office Visit Nephrology [address] [place] [address] Stacie Estevez MD [address] [place] [address] Scheduled Procedures Name Priority Associated Diagnoses Date/Ti [...] filedocumented as of this encounter Care Teams Ring Conductor Relationship Specialty Start Date End Date Pam Marshall DO [address] [place] [address] [place] [phone] PCP - General Internal Medicine 03/06/22 documented as of this encounter
--- OUTSIDE RECORDS SUMMARY | 2024-01-12 03:46 | External Medical Summary | Summary of Care ---
Author Name Unknown Organization [facility] Address [address] [facility] [place] [address] Phone [phone] Care Team Providers Care Floors Buffer Name Role Phone Jeffery Hobbs DO Primary Care Provider [phone] Reason for Visit * Reason Onset Date Comments Medication Refill 12/18/2023 Encounter Details Date Type Department Care Team (Late st Contact Info) Description 12/18/2023 Refill Family Medicine [address] [phone] Jeffery Hobbs DO [address] [place], [place] [address] [phone] Allergies Active Allergy Reactions Criticality Noted Date Comments Oxycodone-Acetaminophen Itching High 05/12/2018 documented as of this encounter (statuses as of 12/19/2023) Medications Medication Sig Dispensed Refills Start Date [...] mouth. Pt takes in evening 0 Active [place]-3 Fatty Acids (FISH OIL) 1200 MG CPDR Take by mouth. 0 Active OneTouch Delica Lancets 33GIndications:T ype 2 diabetes mellitus with hemoglobin A1c goal of less than 7.0% ([facility]) Test blood sugar 4 times a day. [...] EVERY MORNING 100 Tablet 1 09/30/2023 Active Nortriptyline HCl 10 MG Oral Capsule (Pamelor) TAKE TWO CAPSULES BY MOUTH EVERY DAY AT BEDTIME 200 Capsule 1 09/30/2023 Active metFORMIN HCl 1000 MG Oral Tablet (Glucophage)Cristiana cations:Type 2 diabetes mellitus with hemoglobin A1c goal of less than 7.0% ([facility]) TAKE ONE TABLET BY MOUTH TWICE A [...] Oral Tablet Extended Release 24 Hour (toPROL XL)Indications:H TN, goal below 140/90 TAKE ONE TABLET BY MOUTH EVERY MORNING (IN ADDDITION TO 100 MG TABLET IN THE EVENING) 90 Tablet 3 12/09/2023 5 Active Metoprolol Succinate ER 100 MG Oral Tablet Extended Release 24 Hour (toPROL XL)Indications:H TN, goal below 140/90 TAKE ONE TABLET BY MOUTH EVERY EVENING (IN ADDITION TO THE 50 MG TABLET IN THE MORNING) 100 Tablet 3 12/15/2023 5 Active Tadalafil 10 MG Oral Tablet (Cialis) Take 1 Tablet by mouth daily as needed for Erectile Dysfunction. prior to intercourse, no more than 1 dose in 24 hours 12 Tablet 3 12/19/2023 Active Triamcinolone Acetonide 0.5 % External CreamIndications :Psoriasis APPLY TO AFFECTED AREA TWICE A DAY 30 g 11 05/03/2021 4 Discontinue d(Refill) Tadalafil 10 MG Oral Tablet (Cialis) Take 1 Tablet by mouth daily as needed for Erectile Dysfunction. prior to intercourse, no more than 1 dose in 24 hours 4 Tablet 11 01/01/2023 4 Discontinue d(Refill) documented as of this encounter (statuses as of 12/19/2023) Active Problems Problem Noted Date Diagnosed Date [...] Advised 5 year follow up. Done in [place]. Records requested. Family history of prostate cancer in father 05/10 Gout 05/14/2018 Coronary artery disease invo lving [place] coronary artery of [place] heart without angina pectoris 05/14/2018 Overview: Sees Cardiology in [place] History of coronary artery stent placement 05/14 Overview: 2016 stent placed HTN, goal below 140/90 05/14/2018 Hyperlipidemia with target LDL less than 70 02/2018 Chronic GERD 05/14/2018 Mitral valve prolapse 05/14/2018 Fatty liver 05/12/2018 Liver lesion 05/12/2018 documented as of this encounter (statuses as of 12/19/2023) Resolved Problems Problem Noted Date Diagnosed Date Resolved Date DENNIS (acute kidney injury) 04/04/2021 Pancytopenia 01/28/2019 07/07/2019 Subclinical hypothyroidism 06/04/2018 1 Type 2 diabetes mellitus wit h hemoglobin A1c goal of less than 7.0% 05/14/2018 07/08/2023 documented as of this encounter (statuses as of 12/19/2023) Immunizations Name Administration Dates Next Due Pneumococcal [...] encounter Miscellaneous Notes * Telephone Encounter - Jeffery Hobbs DO - 12/19/2023 4:22 PM EDTSigned Prescriptions: Disp Refills Tadalafil 10 MG Oral Tablet (Cialis) 12 Tab*3 Sig: Take 1 Tablet by mouth daily as needed for Erectile Dysfunction. prior to intercourse, no more than 1 dose in 24 hours Authorizing Provider: JEFFERY HOBBS * Telephone Encounter - Katrin Laureano [facility] - 12/19/2023 1:28 PM EDTPending Prescriptions: Disp Refills Tadalafil 10 MG Oral Tablet (Cialis) 4 Tabl*11 Sig: Take 1 Tablet by mouth daily as needed for Erectile Dysfunction. prior to intercourse, no more than 1 dose in 24 hours * Telephone Encounter - Katrin Laureano [facility] - 12/19/2023 1:28 PM EDT Unable to authorize medication refills for pended medication(s) at this time. Part of the protocol criteria used for refill authorization was not satisfied. Patient needs creatinine within normal limits. Please approve if appropriate. Serum creatinine: 2.4 mg/dL (H) 12/04/23 0842 Estimated creatinine clearance: 30.8 mL/min (A) Katrin Viveros Clinical Pharmacist [facility] ([facility] [phone] 12/19/2023, 1:28 PM * Telephone Encounter - Katrin Laureano [facility] - 12/19/2023 1:28 PM EDT Did you pend patient's preferred pharmacy and medication before forwarding?yes Pharmacy: [facility] Pending Prescriptions: Disp Refills Tadalafil 10 MG Oral Tablet (Cialis) 4 Tabl*11 Sig: Take 1 Tablet by mouth daily as needed for Erectile Dysfunction. prior to intercourse, no more than 1 dose in 24 hours Last Visit: 07/08/2023 (in office), Visit date not found (telemedicine) Next Visit: 01/28/2024 If no future appointments scheduled, and last appointment is greater than a year ago, please schedule patient for a follow-up appointment Last date the medication was ordered: 01/01/23 Is this request for a controlled substance?No Urine Drug Screen:No results found for this or any previous visit. Patient Phone Numbers Labs: Lab Results Component Value Date/Time CREAT 2.4 (H) 12/04/2023 08:42 AM CREAT 0.9 04/14/2020 08:20 AM POTASSIUM 5.1 12/04/2023 08:42 AM POTASSIUM 4.3 04/14/2020 08:20 AM TSH 0.38 11/07/2023 02:19 PM TSH 4.08 04/14/2020 08:20 AM LDLCALC 49 11/07/2023 02:19 PM LDLCALC 39 11/27/2019 12:00 AM LDLCALC 31 01/14/2019 09:03 AM LDLDIRECT 74 12/27/2022 08:59 AM LDLDIRECT NOT APPLICABLE 08/13/2018 01:34 PM ALT 27 12/27/2022 08:59 AM ALT 23 03/22/2019 10:16 AM HGBA1C 6.8 (H) 07/01/2023 07:53 AM HGBA1C 7.6 (H) 04/14/2020 08:20 AM documented in this encounter Plan of Treatment Upcoming Encounters Date Type Department Care Team (Late st Contact Info) Description 01/28/2024 8:50 AM EDT Office Visit Family Medicine [address] [place] [phone] Jfefery Hobbs [address] [place] [address] 01/29/2024 11:00 AM EDT Imaging Cardiac Studies, [facility] [address] [place] [address] 08/17/2024 2:20 PM EST Office Visit Nephrology [address] [place] [address] Stacie Estevez MD [address] [place] [address] Scheduled Procedures Name Priority Associated Diagnoses Date/Ti [...] 11/07/2023, 09/08, 08/07/2023, Additional history exists GFR 12/03/2024 12/04/2023, 03/0 09/2023, 07/01/2023, Additional history exists DTaP,Tdap,and Td Vaccines (2 [...] filedocumented as of this encounter Care Teams Floors Buffer Relationship Specialty Start Date End Date Jeffery Hobbs DO [address] [place] [address] [place] [address] PCP - General Internal Medicine 03/06/22 documented as of this encounter
--- OUTSIDE RECORDS SUMMARY | 2024-01-12 03:46 | External Medical Summary | Summary of Care ---
Author Name Unknown Organization [facility] Address [address] [facility] [place] [address] Phone [phone] Care Team Providers Care Telecommunication Lines Repairer Name Role Phone Marshall, Pamjulia Choudhury Primary Care Provider [phone] Reason for Visit * Reason Onset Date Comments Test Results 12/19/2023 Encounter Details Date Type Department Care Team (Late st Contact Info) Description 12/19/2023 Telephone Nephrology, Tameka Arias [address] [place] [address] Stacie Estevez MD 200 [facility] [place] [address] Test Results Allergies Active Allergy Reactions Criticality [...] mouth. Pt takes in evening 0 Active [place]-3 Fatty Acids (FISH OIL) 1200 MG CPDR Take by mouth. 0 Active Triamcinolone Acetonide 0.5 % External CreamIndications: Psoriasis APPLY TO AFFECTED AREA TWICE A DAY 30 g 11 05/03/2021 Active OneTouch Delica Lancets 33GIndications:Ty pe 2 diabetes mellitus with hemoglobin A1c goal of less than 7.0% ([facility]) Test blood sugar 4 times a day. DX E11.9 400 Each 09/11/2022 Active Tadalafil 10 MG Oral Tablet (Cialis) Take 1 Tablet by mouth daily as needed for Erectile Dysfunction. prior to intercourse, no more than 1 dose in 24 hours 4 Tablet 01/01/2023 Active Levothyroxine Sodium 112 MCG Oral Tablet (Levoxyl) Take 1 Tablet by mouth in the morning. (at least 30 min prior to breakfast or other meds). 100 Tablet 09/18/2023 Active Allopurinol 300 MG Oral Tablet [...] MORNING) 100 Tablet 3 12/15/2023 12/14/2024 Active documented as of this encounter (statuses [...] Advised 5 year follow up. Done in [place]. Records requested. Family history of prostate cancer in father 05/10 Gout 05/14/2018 Coronary artery disease invo lving [place] coronary artery of [place] heart without angina pectoris 05/14/2018 Overview: Sees Cardiology in [place] History of coronary artery stent placement 05/14 [...] as of this encounter Miscellaneous Notes * Addendum Note - Dottie Dominguez RN - 12/19/2023 1:44 PM EDTAddended by: DOTTIE DOMINGUEZ on: 12/19/2023 01:44 PM Modules accepted: Orders * Telephone Encounter - Dottie Dominguez RN - 12/19/2023 1:33 PM EDT ----- Message from Stacie Estevez MD sent at 12/19/2023 1:09 PM EDT ----- Marked worsening of kidney labs on chlorthalidone, though K better. More of a change than I would expect w/ just this med. BP were severely uncontrolled at recent OV. How are bp doing? Has he been in touch w/ MTM for bp control >> needs to do both this and amb bp; latter is in process When he's back from town he needs to recheck bmp; continue chlorthalidone for now documented in this encounter Plan of Treatment Upcoming Encounters Date Type Department Care Team (Late st Contact Info) Description 01/28/2024 8:50 AM EDT Office Visit Family Medicine [address] [place] [phone] [address] [place] [address] 01/29/2024 11:00 AM EDT Imaging Cardiac Studies, [facility] [address] [place] [address] 08/17/2024 2:20 PM EST Office Visit Nephrology [address] [place] [address] Stacie Estevez MD [address] [place] [address] Scheduled Orders Name Type Priority Associated Diagnoses Orde r Schedule BASIC METABOLIC PANEL Lab Routine HTN, goal below 140/90 Expected: 12/22/2023 (Approximate), Expires: 12/18/2024 Scheduled Procedures Name Priority Associated Diagnoses Date/Ti me COLONOSCOPY FLEXIBLE PROXIMA L DIAGNOSTIC Recall History of colon polyps Family history of colon cancer Health Maintenance Due Date Last Done Comments Pneumococcal Vaccine: 65+ Years (2 of 2 - PCV) 08/13/2019 08/13/2018 HbA1c 12/31/2023 07/01/2023, 04/2 09/2022, 03/06/2022, Additional history exists Depression Screening 01/02/2024 [...] 08/07/2023, Additional history exists GFR 12/03/2024 12/04/2023, 030 09/2023, 07/01/2023, Additional history exists DTaP,Tdap,and Td [...] hypertension documented in this encounter Care Teams Telecommunication Lines Repairer Relationship Specialty Start Date End Date Pam Marshall DO [address] [place] [address] [place] [address] PCP - General Internal Medicine 03/06/22 documented as of this encounter
--- OUTSIDE RECORDS SUMMARY | 2024-01-12 03:46 | External Medical Summary | Summary of Care ---
Author Name Unknown Organization [facility] Address [address] [facility] [place] [address] Phone [phone] Care Team Providers Care Bill Peddler Name Role Phone Marshall, Pam Choudhury Primary Care Provider [phone] Reason for Visit * Reason Onset Date Comments Referral 12/26/2023 MTDM discharge H TN referral Encounter Details Date Type Department Care Team (Late st Contact Info) Description 12/26/2023 Telephone Pharmacy, [address] [place] [address] [place] [address] Referral (MTD discharge HTN referral ) Allergies Active Allergy Reactions Criticality Noted Date Comments Oxycodone-Acetaminophen Itching High 05/12/2018 documented as of this encounter (statuses as of 12/26/2023) Medications Medication Sig Dispensed Refills Start Date [...] mouth. Pt takes in evening 0 Active [place]-3 Fatty Acids (FISH OIL) 1200 MG CPDR [...] hemoglobin A1c goal of less than 7.0% ([facility]) TAKE ONE TABLET BY MOUTH [...] as of this encounter (statuses as of 12/26/2023) Active Problems Problem Noted Date Diagnosed Date [...] Advised 5 year follow up. Done in [place]. Records requested. Family history of prostate cancer in father 05/10 Gout 05/14/2018 Coronary artery disease invo lving [place] coronary artery of [place] heart without angina pectoris 05/14/2018 Overview: Sees Cardiology in [place] History of coronary artery stent placement 05/14 Overview: 2016 stent placed HTN, goal below 140/90 05/14/2018 Hyperlipidemia with target LDL less than 70 0902/2018 Chronic GERD 05/14/2018 Mitral valve prolapse 05/14/2018 Fatty liver 05/12/2018 Liver lesion 05/12/2018 documented as of this encounter (statuses as of 12/26/2023) Resolved Problems Problem Noted Date Diagnosed Date Resolved Date DENNIS (acute kidney injury) 04/04/2021 Pancytopenia 01/28/2019 07/07/2019 Subclinical hypothyroidism 06/04/2018 1 Type 2 diabetes mellitus wit h hemoglobin A1c goal of less than 7.0% 05/14/2018 07/08/2023 documented as of this encounter (statuses as of 12/26/2023) Immunizations Name Administration Dates Next Due Pneumococcal [...] Julianna Andino RPh, PharmD Clinical Pharmacist - Workers Compensation Claims Examiner Medication Therapy [facility] 12/26/2023, 3:08 PM [phone] * Telephone Encounter - Benjamin Salazar PHARM Tech - 12/26/2023 9:36 AM EDT Magan has not contacted the clinic to schedule/reschedule an appointment for HTN management per referral from PCP despite multiple attempts to do so by our team. Patient is discharged from [facility] services at this time. Thank you, Benjamin Salazar Double Surface Operator [facility]) (Formerly [facility]) [phone] 12/26/2023,9:36 AM documented in this encounter Plan of Treatment Upcoming Encounters Date Type Department Care Team (Late st Contact Info) Description 01/28/2024 8:50 AM EDT Office Visit Family Medicine [address] [place] [phone] [address] [place] [address] 01/29/2024 11:00 AM EDT Imaging Cardiac Studies, [facility] [address] [facility] [place] [address] 08/17/2024 2:20 PM EST Office Visit Nephrology [address] [place] [address] Stacie Estevez MD 200 [facility] [place] [address] Scheduled Procedures Name Priority Associated Diagnoses Date/Ti [...] filedocumented as of this encounter Care Teams Bill Peddler Relationship Specialty Start Date End Date Pam Marshall DO [address] [place] [address] [place] [address] PCP - General Internal Medicine 03/06/22 documented as of this encounter
--- OUTSIDE RECORDS SUMMARY | 2024-01-12 03:46 | External Medical Summary ---
Author Name Unknown Address Unknown Organization K01:[facility] [place] [address] [facility] [address] [place] [address] Laboratory Report Ordering Provider Test Date Status ALEXIS MCCLOUD 12/26/2023 11:00:10 Final Observation Date Value Abnormality Reference (Units ) Status BUN 12/26/2023 11:00:10 25 Above high normal 6-20 (mg/dL) Final Creatinine 12/26/2023 11:00:10 1.1 0.6-1.2 (mg/dL) Final Glomerular filtration rate/1.73 sq M.predicted [Volume Rate/Area] in Serum, Plasma or Blood by Creatinine-based formula (CKD-EPI) 12/26/2023 11:00:10 77 >=60 (mL/min) Final eGFR is calculated based on the CKD-EPI 2020 equation Sodium 12/26/2023 11:00:10 131 Below low normal 135 -146 (mmol/L) Final Potassium 12/26/2023 11:00:10 4.9 3.5-5.1 (m mol/L) Final Cl 12/26/2023 11:00:10 97 Below low normal 98- 107 (mmol/L) Final CO2 12/26/2023 11:00:10 23 22-32 (mmo l/L) Final Anion gap 12/26/2023 11:00:10 11 7-15 (mmol /L) Final Glucose 12/26/2023 11:00:10 183 Above high normal 70 -120 (mg/dL) Final Calcium 12/26/2023 11:00:10 8.8 8.4-10.2 ( mg/dL) Final Performing Location [facility] [place] [address] [place] [address]
--- OUTSIDE RECORDS SUMMARY | 2024-01-12 03:46 | External Medical Summary | Summary of Care ---
Author Name Unknown Organization [facility] Address [address] [facility] [place] [address] Phone [phone] Care Team Providers Care Box Coverer Hand Name Role Phone [place], Pamjulia Choudhury Primary Care Provider [phone] Reason for Visit * Reason Comments Outpatient Testing Encounter Details Date Type Department Care Team (Late st Contact Info) Description 12/26/2023 11:00 AM EDT Laboratory Laboratory [address] [place] [phone] [place] [address] HTN, goal below 140/90 Allergies Active Allergy Reactions Criticality Noted Date [...] mouth. Pt takes in evening 0 Active [place]-3 Fatty Acids (FISH OIL) 1200 MG CPDR Take by mouth. 0 Active OneTouch Delica Lancets 33GIndications:Ty pe 2 diabetes mellitus with hemoglobin A1c goal of less than 7.0% ([facility]) Test blood sugar 4 times a [...] Advised 5 year follow up. Done in [place]. Records requested. Family history of prostate cancer in father 05/10 Gout 05/14/2018 Coronary artery disease invo lving [place] coronary artery of [place] heart without angina pectoris 05/14/2018 Overview: Sees Cardiology in [place] History of coronary artery stent placement 05/14 [...] on file documented as of this encounter Plan of Treatment Upcoming Encounters Date Type Department Care Team (Late st Contact Info) Description 01/28/2024 8:50 AM EDT Office Visit Family Medicine [address] [place] [phone] [place] [address] 01/29/2024 11:00 AM EDT Imaging Cardiac Studies, [facility] 132 [facility] [place] [address] 08/17/2024 2:20 PM EST Office Visit Nephrology [address] [place] [address] Stacie Estevez MD 200 [place] [address] Pending Results Name Type Priority Associated Diagnoses Date /Time BASIC METABOLIC PANEL Lab Routine HTN, goal below 140/90 12/26/2023 11:00 AM EDT Scheduled Procedures Name Priority Associated Diagnoses Date/Ti [...] 08/07/2023, Additional history exists GFR 12/03/2024 12/04/2023, 0309/2023, 07/01/2023, Additional history exists DTaP,Tdap,and Td Vaccines [...] Visit Diagnoses Diagnosis HTN, goal below 140/90 Unspecified essential hypertension documented in this encounter Care Teams Box Coverer Hand Relationship Specialty Start Date End Date Pam Marshall DO [address] [place] [address] [place] [address] PCP - General Internal Medicine 03/06/22 documented as of this encounter
--- OUTSIDE RECORDS SUMMARY | 2024-01-12 03:46 | External Medical Summary | Summary of Care ---
Author Name Unknown Organization [facility] Address [address] [facility] [place] [address] Phone [phone] Care Team Providers Care Clinical Services Director Name Role Phone Hobbs, Jeffery Johnsone Primary Care Provider Reason for Visit * Reason Onset Date Comments Medication Refill 12/18/2023 Encounter Details Date Type Department Care Team (Late st Contact Info) Description 12/18/2023 Refill Family Medicine [address] [phone] Sabrina Jacob PA-C [address] [place] [address] [place] [address] Psoriasis Allergies Active Allergy Reactions Criticality Noted Date [...] mouth. Pt takes in evening 0 Active [place]-3 Fatty Acids (FISH OIL) 1200 MG CPDR Take by mouth. 0 Active OneTouch Delica Lancets 33GIndications:T ype 2 diabetes mellitus with hemoglobin A1c goal of less than 7.0% ([facility]) Test blood sugar 4 times a day. [...] goal of less than 7.0% ([facility]) TAKE ONE TABLET BY MOUTH TWICE A [...] 30 MINUTES BEFORE A MEAL 100 Tablet 1 09/30/2023 Active Lansoprazole 30 MG Oral Capsule [...] MORNING) 100 Tablet 3 12/15/2023 5 Active Triamcinolone Acetonide 0.5 % External Cream (Aristocort)Cristiana cations:Psoriasi s APPLY TO AFFECTED AREA TWICE A DAY 30 g 12/19/2023 Active Triamcinolone Acetonide 0.5 % External CreamIndications :Psoriasis APPLY TO AFFECTED AREA TWICE A DAY 30 g 05/03/2021 4 Discontinue d(Refill) Tadalafil 10 MG [...] Gout 05/14/2018 Coronary artery disease invo lving [place] coronary artery of [place] heart without angina pectoris 05/14/2018 Overview: Sees [...] Encounter - Jeffery Hobbs DO - 12/19/2023 4:23 PM EDTSigned Prescriptions: Disp Refills Triamcinolone Acetonide 0.5 % External Cre*30 g 11 Sig: APPLY TO AFFECTED AREA TWICE A DAY Authorizing Provider: JEFFERY HOBBS * Telephone Encounter - Katrin Laureano [facility] - 12/19/2023 2:12 PM EDTPending Prescriptions: Disp Refills Triamcinolone Acetonide 0.5 % External Cre*30 g 11 Sig: APPLY TO AFFECTED AREA TWICE A DAY * Telephone Encounter - Katrin Laureano [facility] - 12/19/2023 2:12 PM EDT Did you pend patient's preferred pharmacy and medication before forwarding?yes Pharmacy: [facility] Pending Prescriptions: Disp Refills Triamcinolone Acetonide 0.5 % External Cr*30 g 11 Sig: APPLY TO AFFECTED AREA TWICE A DAY Last Visit: 07/08/2023 (in office), Visit date not found (telemedicine) Next Visit: 01/28/2024 If no future appointments scheduled, and last appointment is greater than a year ago, please schedule patient for a follow-up appointment Last date the medication was ordered: 05/03/21 Is this request for a controlled substance?No [...] AM EDT Office Visit Family Medicine [address] [place] [phone] Jeffery Hobbs[address] [place] [address] 01/29/2024 11:00 AM EDT Imaging Cardiac Studies, [facility] [address] [place] [address] 08/17/2024 2:20 PM EST Office Visit Nephrology [address] [place] [address] Stacie Estevez MD [address] [facility] [place] [address] Scheduled Procedures Name Priority Associated Diagnoses Date/Ti [...] 08/07/2023, Additional history exists GFR 12/03/2024 12/04/2023, 09/2023, 07/01/2023, Additional history exists DTaP,Tdap,and Td [...] as of this encounter Visit Diagnoses Diagnosis Psoriasis Other psoriasis documented in this encounter Care Teams Clinical Services Director Relationship Specialty Start Date End Date Jeffery Hobbs DO [address] [place] [address] [place] [address] PCP - General Internal Medicine 03/06/22 documented as of this encounter
--- OUTSIDE RECORDS SUMMARY | 2024-01-12 03:46 | External Medical Summary | Summary of Care ---
Author Name Unknown Organization [facility] Address [address] [facility] [place] [address] Phone [phone] Care Team Providers Care Can Repairer Name Role Phone Marshall, Pamjulia Choudhury Primary Care Provider [phone] Reason for Visit * Reason Onset Date Comments Test Results 12/19/2023 Encounter Details Date Type Department Care Team (Late st Contact Info) Description 12/19/2023 Telephone Nephrology, [facility] [address] [place] [address] Stacie Estevez MD 200 [facility] [place] [address] Test Results Allergies Active Allergy Reactions Criticality [...] mouth. Pt takes in evening 0 Active [place]-3 Fatty Acids (FISH OIL) 1200 MG CPDR [...] Gout 05/14/2018 Coronary artery disease invo lving [place] coronary artery of [place] heart without angina pectoris 05/14/2018 Overview: Sees [...] Telephone Encounter - Julianna Andino RPh - 12/19/2023 2:37 PM EDT MTM unable to reach patient to establish. Patient Phone Numbers Attempted to contact patient again, no answer. Left message to return call to clinic. MyG message sent as well. Dr Piyush Andino RPh, PharmD Clinical Pharmacist - Food Adviser [facility] 12/19/2023, 2:38 PM Ph.[phone] * Addendum Note - Dottie Dominguez RN [...] AM EDT Office Visit Family Medicine [address] [place] [phone] Pam Marshall[address] [place] [address] 01/29/2024 11:00 AM EDT Imaging Cardiac Studies, [facility] [address] [place] [address] 08/17/2024 2:20 PM EST Office Visit Nephrology [address] [place] [address] Stacie Estevez MD 200 [facility] [place] [address] Scheduled Orders Name Type Priority Associated Diagnoses [...] hypertension documented in this encounter Care Teams Can Repairer Relationship Specialty Start Date End Date Pam Marshall DO [address] [place] [address] [place] [id number] PCP - General Internal Medicine 03/06/22 documented as of this encounter
--- OUTSIDE RECORDS SUMMARY | 2024-01-12 03:46 | External Medical Summary | Summary of Care ---
Author Name Unknown Organization [facility] Address [address] [facility] [place] [address] Phone [phone] Care Team Providers Care Pebble Mill Operator Name Role Phone Marshall, Pamjulia Choudhury Primary Care Provider [phone] Reason for Visit * Reason Onset Date Comments Test Results 12/19/2023 Encounter Details Date Type Department Care Team (Late st Contact Info) Description 12/19/2023 Telephone Nephrology, [facility] Arias [address] [place] [address] Stacie Estevez MD 200 [facility] [place] [address] Test Results Allergies Active Allergy Reactions Criticality [...] mouth. Pt takes in evening 0 Active [place]-3 Fatty Acids (FISH OIL) 1200 MG CPDR [...] Advised 5 year follow up. Done in [place]. Records requested. Family history of prostate cancer in father 05/10 Gout 05/14/2018 Coronary artery disease invo lving [place] coronary artery of [place] heart without angina pectoris 05/14/2018 Overview: Sees Cardiology in [place] History of coronary artery stent placement 05/14 [...] 8:50 AM EDT Office Visit Family Medicine [address] [place] [phone] [place] [address] 01/29/2024 11:00 AM EDT Imaging Cardiac Studies, [facility] [address] [place] [address] 08/17/2024 2:20 PM EST Office Visit Nephrology [address] [place] [address] Stacie Estevez MD [address] [place] [address] Scheduled Orders Name Type Priority Associated Diagnoses [...] hypertension documented in this encounter Care Teams Pebble Mill Operator Relationship Specialty Start Date End Date Pam Marshall DO [address] [place] [address] [place] [address] PCP - General Internal Medicine 03/06/22 documented as of this encounter
--- OUTSIDE RECORDS SUMMARY | 2024-01-12 03:47 | External Medical Summary | Summary of Care ---
Author Name Unknown Organization [facility] Address [address] [place] [address] Phone [phone] Care Team Providers Care Server Assistant Name Role Phone MarshallPam ly Primary Care Provider [phone] Reason for Visit * Reason Onset Date Comments Advice 11/26/2023 Encounter Details Date Type Department Care Team (Late st Contact Info) Description 11/26/2023 Telephone [facility] [place] [address] [place] [address] Services, Scheduling [address] [place] [address] Advice Allergies Active Allergy Reactions Criticality Noted Date Comments Oxycodone-Acetaminophen Itching High 05/12/2018 documented as of this encounter (statuses as of 12/02/2023) Medications Medication Sig Dispensed Refills Start Date [...] mouth. Pt takes in evening 0 Active [place]-3 Fatty Acids (FISH OIL) 1200 MG CPDR Take by mouth. 0 Active Triamcinolone Acetonide 0.5 % External CreamIndications: Psoriasis APPLY TO AFFECTED AREA TWICE A DAY 30 g 11 05/03/2021 Active OneTouch Delica Lancets 33GIndications:Ty pe 2 diabetes mellitus with hemoglobin A1c goal of less than 7.0% ([facility]) Test blood sugar 4 times a day. DX E11.9 400 Each 09/11/2022 Active Tadalafil 10 MG Oral Tablet (Cialis) Take 1 Tablet by mouth daily as needed for Erectile Dysfunction. prior to intercourse, no more than 1 dose in 24 hours 4 Tablet 11 01/01/2023 Active Metoprolol Succinate ER 100 MG Oral Tablet Extended Release 24 Hour (toPROL XL) TAKE ONE TABLET BY MOUTH EVERY EVENING (IN ADDITION TO THE 50 MG TABLET IN THE MORNING) 100 Tablet 11/21/2022 12/22/2023 Active Metoprolol Succinate ER 50 MG Oral Tablet Extended Release 24 Hour (toPROL XL) TAKE ONE TABLET BY MOUTH EVERY MORNING (IN ADDDITION TO 100 MG TABLET IN THE EVENING) 100 Tablet 11/21/2022 12/17/2023 Active Levothyroxine Sodium 112 MCG Oral Tablet [...] goal of less than 7.0% ([facility]) TAKE ONE TABLET BY MOUTH TWICE [...] the morning. 45 Tablet 3 11/11/2023 Active documented as of this encounter (statuses as of 12/02/2023) Active Problems Problem Noted Date Diagnosed Date [...] Gout 05/14/2018 Coronary artery disease invo lving [place] coronary artery of [place] heart without angina pectoris 05/14/2018 Overview: Sees Cardiology in [place] History of coronary artery stent placement 05/14 Overview: 2016 stent placed HTN, goal below 140/90 05/14/2018 Hyperlipidemia with target LDL less than 70 02/2018 Chronic GERD 05/14/2018 Mitral valve prolapse 05/14/2018 Fatty liver 05/12/2018 Liver lesion 05/12/2018 documented as of this encounter (statuses as of 12/02/2023) Resolved Problems Problem Noted Date Diagnosed Date Resolved Date DENNIS (acute kidney injury) 04/04/2021 Pancytopenia 01/28/2019 07/07/2019 Subclinical hypothyroidism 06/04/2018 1 Type 2 diabetes mellitus wit h hemoglobin A1c goal of less than 7.0% 05/14/2018 07/08/2023 documented as of this encounter (statuses as of 12/02/2023) Immunizations Name Administration Dates Next Due Pneumococcal [...] Telephone Encounter - Dottie Rutherford RN - 12/02/2023 8:28 AM EDT Refer to other encounter. * Telephone Encounter - Concepción Briones LPN - 11/27/2023 10:14 AM EDT Pt needs apt with nurse at [facility] for 24 hour BP monitoring * Telephone Encounter - Haylee Medrano OSA - 11/26/2023 10:31 AM EDT Requested Information from caller: Who is calling patient Provider patient is established with: Sara What is the concern or issue they are having: reports a lady named Deja told her to contact the neuro nurse Dottie about a blood pressure continuous monitoring device. How long has the issue been going on: today Any additional details to add: no Pts phone number for nurse to call back: [phone] documented in this encounter Plan of Treatment Upcoming Encounters Date Type Department Care Team (Late st Contact Info) Description 01/28/2024 8:50 AM EDT Office Visit Family Medicine [address] [place] [phone] [place] [address] 01/29/2024 11:00 AM EDT Imaging Cardiac Studies, [facility] [address] [place] [address] 08/17/2024 2:20 PM EST Office Visit Nephrology [address] [place] [address] Stacie Estevez MD [address] [place] [address] Scheduled Procedures Name Priority Associated Diagnoses Date/Ti me COLONOSCOPY FLEXIBLE PROXIMA L DIAGNOSTIC Recall History of colon polyps Family history of colon cancer Health Maintenance Due Date Last Done Comments Pneumococcal Vaccine: 65+ Years (2 of 2 - PCV) 08/13/2019 08/13/2018 Influenza Vaccine (FLU shot) (#1) 2023 HbA1c 12/31/2023 07/01/2023, 04/09/2022, 03/06/2022, Additional history exists Depression Screening 01/02/2024 01/01/2023 Diabetic Foot Exam 01/02/2024 01/01/2023, 0 03/06/2022, 02/28/2021, Additional history exists COLONOSCOPY-EVERY 5 YRS AGES 18-100 03/09/2024 03/09/2019, 03/09/2019 Diabetic Eye Exam 08/20/2024 08/20/2023, , 09/25/2021, Additional history exists Albumin/Creatinine Ratio 11/06/2024 024, 07/09/2023, 09/17/2022, Additional history exists GFR 11/06/2024 11/07/2023, 06/09, 12/27/2022, Additional history exists TSH 11/06/2024 11/07/2023, 09/08, 08/07/2023, Additional history exists DTaP,Tdap,and Td Vaccines (2 [...] filedocumented as of this encounter Care Teams Server Assistant Relationship Specialty Start Date End Date Pam Marshall DO [address] [place] [address] [place] [address] PCP - General Internal Medicine 03/06/22 documented as of this encounter
--- OUTSIDE RECORDS SUMMARY | 2024-01-12 03:47 | External Medical Summary | Summary of Care ---
Author Name Unknown Organization [facility] Address [address] [facility] [place] [address] Phone [phone] Care Team Providers Care Front End Web Designer Name Role Phone Marshall, Pamjulia Choudhury Primary Care Provider [phone] Reason for Visit * Reason Comments Blood Pressure Check Encounter Details Date Type Department Care Team (Late st Contact Info) Description 12/04/2023 9:00 AM EDT Nurse Only Nephrology, [facility] [address] [place] [address] Sp, Nurse Nephrology 200 [place] [address] Blood Pressure Check Allergies Active Allergy Reactions Criticality Noted Date Comments Oxycodone-Acetaminophen Itching High 05/12/2018 documented as of this encounter (statuses as of 12/05/2023) Medications Medication Sig Dispensed Refills Start Date [...] mouth. Pt takes in evening 0 Active [place]-3 Fatty Acids (FISH OIL) 1200 MG CPDR Take by mouth. 0 Active Triamcinolone Acetonide 0.5 % External CreamIndications: Psoriasis APPLY TO AFFECTED AREA TWICE A DAY 30 g 11 05/03/2021 Active OneTouch Delica Lancets 33GIndications:Ty pe 2 diabetes mellitus with hemoglobin A1c goal of less than 7.0% ([facility]) Test blood sugar 4 times [...] hemoglobin A1c goal of less than 7.0% ([facility]) TAKE ONE TABLET BY MOUTH [...] EVERY MORNING 100 Capsule 1 09/30/2023 Active Spironolactone 25 MG Oral Tablet [...] as of this encounter (statuses as of 12/05/2023) Active Problems Problem Noted Date Diagnosed Date [...] Gout 05/14/2018 Coronary artery disease invo lving [place] coronary artery of [place] heart without angina pectoris 05/14/2018 Overview: Sees Cardiology in [place] History of coronary artery stent placement 05/14 Overview: 2016 stent placed HTN, goal below 140/90 05/14/2018 Hyperlipidemia with target LDL less than 70 02/2018 Chronic GERD 05/14/2018 Mitral valve prolapse 05/14/2018 Fatty liver 05/12/2018 Liver lesion 05/12/2018 documented as of this encounter (statuses as of 12/05/2023) Resolved Problems Problem Noted Date Diagnosed Date Resolved Date DENNIS (acute kidney injury) 04/04/2021 Pancytopenia 01/28/2019 07/07/2019 Subclinical hypothyroidism 06/04/2018 1 Type 2 diabetes mellitus wit h hemoglobin A1c goal of less than 7.0% 05/14/2018 07/08/2023 documented as of this encounter (statuses as of 12/05/2023) Immunizations Name Administration Dates Next Due Pneumococcal [...] applied to left arm. BP monitor number [id number]. Log sheet, instructions on use and recording of activities explained to patient/caregiver with verbal understanding of same. Pt also brought new Omron home cuff in for validation. Demonstrated proper application and use. documented in this encounter Plan of Treatment Upcoming Encounters Date Type Department Care Team (Late st Contact Info) Description 01/28/2024 8:50 AM EDT Office Visit Family Medicine [address] [place] [phone] [address] [place] [address] 01/29/2024 11:00 AM EDT Imaging Cardiac Studies, [facility] 132 [facility] [place] [address] 08/17/2024 2:20 PM EST Office Visit Nephrology [address] [place] [address] Stacie Estevez MD [address] [place], [place] [address] Scheduled Procedures Name Priority Associated Diagnoses Date/Ti me COLONOSCOPY FLEXIBLE PROXIMA L DIAGNOSTIC Recall History of colon polyps Family history of colon cancer Health Maintenance Due Date Last Done Comments Pneumococcal Vaccine: 65+ Years (2 of 2 - PCV) 08/13/2019 08/13/2018 Influenza Vaccine (FLU shot) (#1) 2023 HbA1c 12/31/2023 07/01/2023, 04/2 09/2022, 03/06/2022, Additional [...] filedocumented as of this encounter Care Teams Front End Web Designer Relationship Specialty Start Date End Date Pam Marshall DO [address] [place] [address] [place] [address] PCP - General Internal Medicine 03/06/22 documented as of this encounter
--- OUTSIDE RECORDS SUMMARY | 2024-01-12 03:47 | External Medical Summary | Summary of Care ---
Author Name Unknown Organization [facility] Address [address] [facility] [place] [address] Phone [phone] Care Team Providers Care Pump Technician Name Role Phone Pam Marshall Mae Primary Care Provider Reason for Visit * Reason Onset Date Comments Blood Pressure Check 11/21/2023 Encounter Details Date Type Department Care Team (Late st Contact Info) Description 11/21/2023 Telephone Nephrology, [facility]ameka Arias [address] [place] [address] Stacie Estevez MD 200 [facility] [place] [address] Blood Pressure Check Allergies Active Allergy Reactions [...] mouth. Pt takes in evening 0 Active [place]-3 Fatty Acids (FISH OIL) 1200 MG CPDR [...] Advised 5 year follow up. Done in [place]. Records requested. Family history of prostate cancer in father 05/10 Gout 05/14/2018 Coronary artery disease invo lving [place] coronary artery of [place] heart without angina pectoris 05/14/2018 Overview: Sees Cardiology in [place] History of coronary artery stent placement 05/14 [...] Encounter - Dottie Rutherford RN - 12/02/2023 8:29 AM EDT LMAM with call back number to set up testing. * Telephone Encounter - Josey Rodriguez OSA - 12/01/2023 2:34 PM EDT Good afternoon, Pt on the line, calling to speak with Dottie. Please give him a call back at [phone]. Thank you * Telephone Encounter - Concepción Briones LPN - 11/26/2023 8:33 AM EDT MyG message sent * Telephone Encounter - Concepción Briones LPN - 11/21/2023 12:21 PM EDT Attempted contact Received message that VM id full MyG message sent to contact office * Telephone Encounter - Stacie Estevez MD - 11/21/2023 11:37 AM EDT Pls contact pt re 24 hr bp study ordered at [facility] for [facility] Pls also arrange tomorrow health unless he's replaced cuff in past year in which case validate; last one in 2022 nto accurate documented in this encounter Plan of Treatment Upcoming Encounters Date Type Department Care Team (Late st Contact Info) Description 01/28/2024 8:50 AM EDT Office Visit Family Medicine [address] [place] [phone] [place] [address] 01/29/2024 11:00 AM EDT Imaging Cardiac Studies, [facility] [address] [facility] [place] [address] 08/17/2024 2:20 PM EST Office Visit Nephrology [address] [place] [address] Stacie Estevez MD 200 [facility] [place] [address] Scheduled Procedures Name Priority Associated Diagnoses Date/Ti me COLONOSCOPY FLEXIBLE PROXIMA L DIAGNOSTIC Recall History of colon polyps Family history of colon cancer Health Maintenance Due Date Last Done Comments Pneumococcal Vaccine: 65+ Years (2 of 2 - PCV) 08/13/2019 08/13/2018 Influenza Vaccine (FLU shot) (#1) 2023 HbA1c 12/31/2023 07/01/2023, 12/08, 03/06/2022, Additional history [...] filedocumented as of this encounter Care Teams Pump Technician Relationship Specialty Start Date End Date Pam Marshall DO [address] [place] [address] [place] [phone] PCP - General Internal Medicine 03/06/22 documented as of this encounter
--- OUTSIDE RECORDS SUMMARY | 2024-01-12 03:47 | External Medical Summary | Summary of Care ---
Author Name Unknown Organization [facility] Address [address] 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 SOB lately intermittently during winter and not being as active. Intermittent chest pain but may be muscular. Palpitations still intermittent and nothing unusual. Denies dizziness and edema. 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 Pt takes in evening 0 Active [place]-3 Fatty Acids (FISH OIL) 1200 MG CPDR Take by mouth. 0 Active Triamcinolone Acetonide 0.5 % External CreamIndications: Psoriasis APPLY TO AFFECTED AREA TWICE A DAY 30 g 11 05/03/2021 Active OneTouch Delica Lancets 33GIndications:Ty pe 2 diabetes mellitus with hemoglobin A1c goal of less than 7.0% ([facility]) Test blood sugar 4 times a day. DX E11.9 400 Each 3 09/11/2022 Active Tadalafil 10 MG Oral Tablet [...] IN THE MORNING) 100 Tablet 3 11/21/2022 12/22/2023 Active Metoprolol Succinate ER 50 MG Oral Tablet Extended Release 24 Hour (toPROL XL) TAKE ONE TABLET BY MOUTH EVERY MORNING (IN ADDDITION TO 100 MG TABLET IN THE EVENING) 100 Tablet 3 11/21/2022 12/17/2023 Active Levothyroxine Sodium 112 MCG [...] Tablet 1 tablet daily 0 11/06/2023 Active documented as of this encounter (statuses as of 11/18/2023) Active Problems Problem Noted Date Diagnosed Date Vasculogenic erectile dysfunction 01/01/2023 Carpal tunnel syndrome [...] Gout 05/14/2018 Coronary artery disease invo lving benton coronary artery of benton heart without angina pectoris 05/14/2018 Overview: Sees Cardiology in [place] History of coronary artery stent placement 05/14 Overview: 2016 stent placed HTN, goal below 140/90 05/14/2018 Hyperlipidemia with target LDL less than 70 02/2018 Chronic GERD 05/14/2018 Mitral valve prolapse 05/14/2018 Fatty liver 05/12/2018 Liver lesion 05/12/2018 documented as of this encounter (statuses as of 11/18/2023) Resolved Problems Problem Noted Date Diagnosed Date Resolved Date DENNIS (acute kidney injury) 04/04/2021 Pancytopenia 01/28/2019 07/07/2019 Subclinical hypothyroidism 06/04/2018 1 Type 2 diabetes mellitus wit h hemoglobin A1c goal of less than 7.0% 05/14/2018 07/08/2023 documented as of this encounter (statuses as of 11/18/2023) Immunizations Name Administration Dates Next Due Pneumococcal [...] Sign Reading Time Taken Comments Blood Pressure 156/78 11/06/2023 7:59 AM EST Pulse 92 11/06/2023 7:59 AM EST Temperature - - Respiratory Rate 16 11/06/2023 7:59 AM EST Oxygen Saturation - - Inhaled Oxygen Concentration - - Weight 93.2 kg (205 lb 6.4 oz) 11/06/2023 7:59 A M EST Height - - Body Mass Index 36.38 07/08/2023 8:50 AM EDT documented in this encounter Progress Notes * Latanya Baron PA-C - 11/06/2023 8:05 AM EST Cardiology F/U: CC: CAD with prior stent to the LAD in 2017; hypertension; dyslipidemia HPI: Patient is a 68 year old male here today for routine cardiology follow-up. Last clinic evaluation approximately 1 year ago with the undersigned. He has a history of CAD S/P to the LAD in 2016 or 2016 while living in [place] and details unknown.. Other history includes hypertension, dyslipidemia, DM and CKD for which he follows with Dr. Estevez. He presents today feeling ok. Has several concerns. Recent intermittent chest pain reported. Occursat rest or with walking. Intermittent. Lasts several minutes. Described as an ache. Resolves spontaneously. No associated symptoms. No radiation. He also reports increased SOB with activity such as walking across his yard. Feels more "difficult". No cough. No fever or chills. No palpitations, dizziness, syncope or near syncope. No orthopnea, PND, or increased lower extremity edema. No fever, chills, cough, hematochezia, melena, or hemoptysis. Review of Systems: See HPI for pertinent positives. All others negative, other than those noted in HPI. Patient Active Problem List Diagnosis Code Fatty liver K76.0 Liver lesion K76.9 Gout M10.9 Coronary artery disease involving benton coronary artery of benton heart without angina pectoris I25.10 History of [...] right wrist G56.01 Vasculogenic erectile dysfunction N52.9 Past Surgical History: Procedure Laterality Date COLONOSCOPY 09/06/2014 COLONOSCOPY, DIAGNOSTIC (RECTUM) 03/09/2019 adenomatous polyp, diverticulosis, repeat 5 yrs/COLONOSCOPY FLEXIBLE PROXIMAL DIAGNOSTIC performed by Lani Engel DO at ENDOSCOPY [facility] EGD, FLEXIBLE, DIAGNOSTIC 05/06/2019 normal/ESOPHAGOGASTRODUODENOSCOPY (EGD), FLEXIBLE, TRANSORAL, DIAGNOSTIC performed by Lani Engel DO at ENDOSCOPY [facility] ESOPHAGOSCOPY, FLEXIBLE, DIAGNOSTIC 03/19/2016 Family History Problem Relation Age of Onset Heart attack Mother 86 Stroke Mother Colon cancer Father 55 Other (Other) Father Other (Heart disease (congenital)) Sister 21 Other (Lung cancer (nonsmoker)) Brother 53 Social History Tobacco Use Smoking status: Never Smokeless tobacco: Former Vaping Use Vaping Use: Never used Substance Use Topics Alcohol use: Yes Comment: couple drinks a day Drug use: No Review of patient's allergies indicates: Allergen Reactions Percocet [Oxycodone-Acetaminophen] Itching Current Outpatient Medications Medication Sig Dispense Refill Aspirin 81 MG Tablet Take 1 Tablet by mouth in the morning. Cyanocobalamin (B-12) 1000 MCG TABS Take by mouth. Cholecalciferol 50 MCG (2000 UT) Oral Capsule Take 1 Capsule by mouth in the morning. Multiple Vitamins-Minerals (MULTIVITAMIN MEN 50+) TABS Take by mouth. [place]-3 Fatty Acids (FISH OIL) 1200 MG CPDR Take by mouth. Triamcinolone Acetonide 0.5 % External Cream APPLY TO AFFECTED AREA TWICE A DAY 30 g 11 OneTouch Delica Lancets 33G Test blood sugar 4 times a day. DX E11.9 400 Each 3 Tadalafil 10 MG Oral Tablet (Cialis) Take 1 Tablet by mouth daily as needed for Erectile Dysfunction. prior to intercourse, no more than 1 dose in 24 hours 4 Tablet 11 Metoprolol Succinate ER 100 MG Oral Tablet Extended Release 24 Hour (toPROL XL) TAKE ONE TABLET BY MOUTH EVERY EVENING (IN ADDITION TO THE 50 MG TABLET IN THE MORNING) 100 Tablet 3 Metoprolol Succinate ER 50 MG Oral Tablet Extended Release 24 Hour (toPROL XL) TAKE ONE TABLET BY MOUTH EVERY MORNING (IN ADDDITION TO 100 MG TABLET IN THE EVENING) 100 Tablet 3 Levothyroxine Sodium 112 MCG Oral Tablet (Levoxyl) Take 1 Tablet by mouth in the morning. (at least30 min prior to breakfast or other meds). 100 Tablet 3 Allopurinol 300 MG Oral Tablet (Zyloprim) TAKE ONE TABLET BY MOUTH EVERY MORNING 100 Tablet 1 Nortriptyline HCl 10 MG Oral Capsule (Pamelor) TAKE TWO CAPSULES BY MOUTH EVERY DAY AT BEDTIME 200 Capsule 1 metFORMIN HCl 1000 MG Oral Tablet (Glucophage) TAKE ONE TABLET BY MOUTH TWICE A DAY -- IN THE MORNING AND BEFORE BEDTIME 200 Tablet 1 amLODIPine Besy-Benazepril HCl 10-40 MG Oral Capsule (Lotrel) TAKE ONE CAPSULE BY MOUTH EVERY MORNING 100 Capsule 1 glipiZIDE ER 5 MG Oral Tablet Extended Release 24 Hour (Glucotrol XL) TAKE ONE TABLET BY MOUTH EVERY MORNING -- 30 MINUTES BEFORE A MEAL 100 Tablet 1 Lansoprazole 30 MG Oral Capsule Delayed Release (Prevacid) TAKE ONE CAPSULE BY MOUTH EVERY MORNING 100 Capsule 1 Spironolactone 25 MG Oral Tablet (Aldactone) TAKE ONE TABLET BY MOUTH EVERY MORNING 100 Tablet 1 Atorvastatin Calcium 40 MG Oral Tablet (Lipitor) TAKE ONE TABLET BY MOUTH EVERY DAY 100 Tablet 1 No current facility-administered medications for this visit. Physical Exam: BP 156/78 | Pulse 92 | Resp 16 | Wt 93.2 kg (205 lb 6.4 oz) | BMI 36.38 kg/m | BSA 2.04 m On my repeat 136/66 General: no acute distress and stated age Head: normocephalic, no masses, lesions, tenderness or abnormalities Eyes: conjunctiva are pink and non-injected, sclera clear Neck: supple, no adenopathy, no bruits, normal jugular venous pulse, no hepatojugular reflux Chest: normal shape and normal respiratory effort Lungs: clear to auscultation and percussion Cardiac Exam: regular rate & rhythm, no murmurs gallops or rubs - normal S1, normal S2 Pulses: 2(+) throughout Abdomen: abdomen soft, non-tender, no abnormal masses and no hepatosplenomegaly Musculoskeletal: no gait disturbance, no joint inflammation, no deforming arthritis Extremities: no edema and no cyanosis Neuro: grossly normal exam Cardiac studies/labs: EKG performed today and reviewed personally: Normal sinus rhythm Normal ECG When compared with ECG of 15-MAY-2022 13:26, No significant change was found EKG reviewed from May 2022: Normal sinus rhythm Normal ECG When compared with ECG of 03-APR-2022 11:13, No significant change was found ZIO monitor results reviewed dated March 2022: CONCLUSIONS: Patient had a min HR of 42 bpm, max HR of 123 bpm, and avg HR of 69 bpm. Predominant underlying rhythm was Sinus Rhythm. Isolated SVEs were rare (<1.0%), SVE Couplets were rare (<1.0%), and SVE Triplets were rare (<1.0%). Isolated VEs were rare (<1.0%), and no VE Couplets or VE Triplets were present. Ventricular Bigeminy was present. agree with above. No arrhythmias. Refer to rhythm strips available for review under the MUSE link for additional detail Echo report reviewed dated May 2021: Interpretation Summary The examination is adequate to evaluate the referral indication. The left ventricular cavity size is normal. The LV wall thickness is moderately increased (concentric). The left ventricular wall motion is normal. The qualitative LV ejection fraction is 55-59% (normal). The left ventricular diastolic function is mildly abnormal (grade I). The left atrium is mildly enlarged (35-41 ml/m^2). The mitral valve leaflets are mildly calcified. Mild mitral regurgitation is present. The estimated pulmonary artery systolic pressure is 30-35 mm Hg. EKG performed May 2021: Sinus bradycardia at 56 bpm Otherwise normal ECG No previous ECG's available Outpatient ZIO monitor report reviewed dated January 2019: CONCLUSIONS: Patient had a min HR of 49 bpm, max HR of 148 bpm, and avg HR of 78 bpm. Predominant underlying rhythm was Sinus Rhythm. Isolated SVEs were occasional (1.5%, ), SVE Triplets were rare (<1.0%, 232), and no SVE Couplets were present. Isolated VEs were rare (<1.0%), and no VE Couplets or VE Triplets were present. Nuclear stress test report reviewed dated April 2018 at outside facility: Normal myocardial perfusion scan with exercise. Normal systolic LV function with ejection fraction 57% Echocardiogram report reviewed dated April 2018 at outside facility: Mild MR, mild TR normal LV systolic function No pericardial effusion Normal IVC and aortic root/ascending aorta size. Abnormal relaxation No LVOT gradient with Valsalva Normal myocardial Contractility, mild left atrial enlargement, aortic sclerosis without stenosis. Mild concentric LVH. Mild diastolic dysfunction. Latest Reference Range & Units 11/07/23 14:19 Triglycerides <=174 mg/dL 127 Cholesterol <200 mg/dL 127 Non-HDL Cholesterol <=159 mg/dL 74 HDL Cholesterol >39 mg/dL 53 LDL Cholesterol <=129 mg/dL 49 Impression: 68 year old male 1. Coronary artery disease status post coronary stent to LAD in 2016 or 2017 in [place]. 2. Hypertension - initially elevated but improved on my repeat. 3. Dyslipidemia , goal LDL < 70. Controlled. Continue atorvastatin 4. DM 5. Intermittent palpitations, suggestive of ectopy 6. Increased dyspnea and intermittent chest pain. No acute EKG changes today Recommendations: BP initially elevated but trending down and improved on my repeat. Long discussion about intermittent chest pain, somewhat atypical for angina. However he does admit to worsening SOB with activities. Options discussed. Recommend proceeding with an exercise stress echo. Patient feels he would be able to adequately ambulate on a treadmill. He is having labs soon for PCP. Adding lipids panel. The patient is to continue all current medications as listed above. No changes were made at today'svisit. ER for worsening symptoms advised. Patient is being evaluated in the cardiology office for ongoing care/risk management for CA. I spent a total of 40 minutes on the date of service in preparation, delivery, and documentation ofthe care provided to Magan Lakhani excluding any time spent in the performance of separately billed services. The patient agrees to the above plan and will call with additional questions or concerns. ER with all emergencies advised. Follow-up: Return in about 6 months (around 05/06/2024). | Check-out note: Schedule exercise stress echo 6 months follow up Latanya Baron PA-C Department of Cardiology This chart was completed in part utilizing [employer] Speech Voice Recognition Software. Grammatical errors, random word insertions, prounoun errors, and incomplete sentences are an occasional consequence of this system due to software limitations, ambient noise, and hardware issues. Any formal questions or concerns about the content, text, or information contained within the body of this dictation should be directly addressed to the provider for clarification. documented in this encounter Procedure Notes * Jeffery Trent DO - 11/06/2023 7:59 AM ESTAssociated Order(s): EKG REASON FOR STUDY: HTN;HTN CONCLUSIONS: Normal sinus rhythm Normal ECG When compared with ECG of 15-MAY-2022 13:26, No significant change was found Ventricular Rate: 81 Atrial Rate: 81 [place] Interval: 166 QRS Duration: 86 QT/QTc: 348/404 ms P-R-T Parker: 62 : 6 : 52 degrees documented in this encounter Nursing Notes * Royal Kaufman LPN - 11/06/2023 7:59 AM EST Patient identified by full name and date of Chief Complaint Patient presents with Follow Up Almost 1 year follow up. SOB lately intermittently during winter and not being as active. Intermittent chest pain but may be muscular. Palpitations still intermittent and nothing unusual. Denies dizziness and edema. Examination Room: 3 Name: Magan Lakhani Date of : (1955). Reason for Visit: Follow up Interim Hospitalization(s): Denies Problems/Concerns: See chief complaint Chest Pain/SOB: See chief complaint [facility] Discussed: Yes [facility] is a way you can talk to your provider online through e-mail. Would you like to sign up? I can activate it for you? ALREADY ACTIVE Patient was instructed to not get up on the exam table until directed and assisted by their provider; patient is to remain seated in the chair/ wheelchair/ exam table for fall prevention and safety reasons. Patient is aware to have assistance to step down off exam table with personnel. Patient voiced full comprehension of instructions. documented in this encounter Plan of Treatment Upcoming Encounters Date Type Department Care Team (Late st Contact Info) Description 01/28/2024 8:50 AM EDT Office Visit Family Medicine [address] [place] [phone] Pam Marshall [address] [place] [address] 01/29/2024 11:00 AM EDT Imaging Cardiac Studies, [facility] [address] [place] [address] 08/17/2024 2:20 PM EST Office Visit Nephrology [address] [place] [address] Stacie Estevez MD [address] [place] [id number] Scheduled Orders Name Type Priority Associated Diagnoses Orde r Schedule ECHO, STRESS (EXERCISE) W/ PHYSICIAN Echocardiology Routine HTN, goal below 140/90 Hyperlipidemia with target LDL less than 70 Chest pain, unspecified type 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 (HCC) Expected: 11/06/2023, Expires: 11/05/2024 Scheduled Procedures Name Priority Associated Diagnoses Date/Ti [...] Not on filedocumented as of this encounter Procedures Procedure Name Priority Date/Time Associated Diagnosis Comments [place] ECG ROUTINE ECG W/LEAST 12 LDS W/I&R Routine 11/06/2023 7:59 AM EST HTN, goal below 140/90 documented in this encounter Results * LIPID PANEL WITH DIRECT LDL IF TG IS HIGH (11/07/2023 2:19 PM EST) Triglycerides 127 <=174 mg/dL 11/08/2023 1:13 AM EST [facility] Comment: Triglyceride Reference Ranges (mg/dL): <150 Acceptable 150-174 Borderline high 175-499 High >=500 Very high Cholesterol 127 <200 mg/dL 11/08/2023 1:13 AM EST [facility] Comment: Total Cholesterol Reference Ranges (mg/dL): <200 Desirable 200-239 Borderline high >=240 High HDL Cholesterol 53 >39 mg/dL 1:13 AM EST [facility] Comment: HDL Cholesterol Reference Ranges (mg/dL): >=60 High (Desirable) <50 Low (Undesirable) For Females <40 Low (Undesirable) For Males Non-HDL Cholesterol 74 <=159 mg/dL 11/08/2023 1:13 AM EST [facility] Comment: Non-HDL Cholesterol Reference Range (mg/dL): <100 Target level for high risk ASCVD patient <130 Optimal for general population 130-159 Near optimal for general population 160-189 Borderline High 190-219 High >=220 Very High LDL Cholesterol 49 <=129 mg/dL 11/08/2023 1:13 AM EST [facility]AT[facility] Comment: LDL Cholesterol Reference Ranges (mg/dL): <70 Target level for high risk ASCVD patient <100 Optimal for general population 100-129 Near optimal for general population 130-159 Borderline high 160-189 High >=190 Very high Blood Venous blood specimen / Unknown Venipuncture / Unknown 11/07/2023 2:19 PM EST 11/07/2023 2:19 PM EST Latanya Baron PA-C LAB BLOOD ZONIA SHEA Performing Organization Address City/[facility] Co de Phone Number LABORATORY [facility] [address] [place] [address] * EKG (11/06/2023 7:59 AM EST) 11/06/2023 7:59 AM EST Narrative Procedure Note Jeffery Trent, - 11/06/2023 7:59 AM EST REASON FOR STUDY: HTN;HTN CONCLUSIONS: Normal sinus rhythm Normal ECG When compared with ECG of 15-MAY-2022 13:26, No significant change was found Ventricular Rate: 81 Atrial Rate: 81 [place] Interval: 166 QRS Duration: 86 QT/QTc: 348/404 ms P-R-T Parker: 62 : 6 : 52 degrees Latanya Baron PA-C EKG [facility] documented in this encounter Visit Diagnoses Diagnosis 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
--- OUTSIDE RECORDS SUMMARY | 2024-01-12 03:47 | External Medical Summary | Summary of Care ---
Author Name Unknown Organization [facility] Address [address] [facility] [place] [address] Phone [phone] Care Team Providers Care Beverage Manager Name Role Phone Marshall, Pamjulia Choudhury Primary Care Provider [phone] Reason for Visit * Reason Comments Blood Pressure Check Encounter Details Date Type Department Care Team (Late st Contact Info) Description 12/04/2023 9:00 AM EDT Nurse Only Nephrology, [facility] [address] [place] [address] Sp, Nurse Nephrology [address] [place] [address] Blood Pressure Check Allergies Active Allergy Reactions Criticality Noted Date Comments Oxycodone-Acetaminophen Itching High 05/12/2018 documented as of this encounter (statuses as of 12/04/2023) Medications Medication Sig Dispensed Refills Start Date [...] mouth. Pt takes in evening 0 Active [place]-3 Fatty Acids (FISH OIL) 1200 MG CPDR Take by mouth. 0 Active Triamcinolone Acetonide 0.5 % External CreamIndications: Psoriasis APPLY TO AFFECTED AREA TWICE A DAY 30 g 11 05/03/2021 Active OneTouch Delica Lancets 33GIndications:Ty pe 2 diabetes mellitus with hemoglobin A1c goal of less than 7.0% ([facility]) Test blood sugar 4 [...] A1c goal of less than 7.0% ([facility]) TAKE ONE TABLET BY MOUTH [...] as of this encounter (statuses as of 12/04/2023) Active Problems Problem Noted Date Diagnosed Date [...] Gout 05/14/2018 Coronary artery disease invo lving [place] coronary artery of [place] heart without angina pectoris 05/14/2018 Overview: Sees Cardiology in [place] History of coronary artery stent placement 05/14 Overview: 2016 stent placed HTN, goal below 140/90 05/14/2018 Hyperlipidemia with target LDL less than 70 02/2018 Chronic GERD 05/14/2018 Mitral valve prolapse 05/14/2018 Fatty liver 05/12/2018 Liver lesion 05/12/2018 documented as of this encounter (statuses as of 12/04/2023) Resolved Problems Problem Noted Date Diagnosed Date Resolved Date DENNIS (acute kidney injury) 04/04/2021 Pancytopenia 01/28/2019 07/07/2019 Subclinical hypothyroidism 06/04/2018 1 Type 2 diabetes mellitus wit h hemoglobin A1c goal of less than 7.0% 05/14/2018 07/08/2023 documented as of this encounter (statuses as of 12/04/2023) Immunizations Name Administration Dates Next Due Pneumococcal [...] Index - - documented in this encounter Nursing Notes * Dottie Rutherford RN - 12/04/2023 9:46 AM EDT Ambulatory BP cuff size regular applied to left arm. BP monitor number [id number]. Log sheet, instructions on use and recording of activities explained to patient/caregiver with verbal understanding of same. Pt also brought new Omron home cuff in for validation. Demonstrated proper application and use. documented in this encounter Plan of Treatment Upcoming Encounters Date Type Department Care Team (Zaina morris Contact Info) Description 01/28/2024 8:50 AM EDT Office Visit Family Medicine [address] [place] [phone] [place] [address] 01/29/2024 11:00 AM EDT Imaging Cardiac Studies, [facility] [address] [place] [address] 08/17/2024 2:20 PM EST Office Visit Nephrology [address] [place] [address] Stacie Estevez MD [address] [place] [address] Scheduled Procedures Name Priority Associated Diagnoses Date/Ti [...] filedocumented as of this encounter Care Teams Beverage Manager Relationship Specialty Start Date End Date Pam Marshall DO [address] [place] [address] [place] [address] PCP - General Internal Medicine 03/06/22 documented as of this encounter
--- OUTSIDE RECORDS SUMMARY | 2024-01-12 03:47 | External Medical Summary | Summary of Care ---
Author Name Unknown Organization [facility] Address [address] [facility] [place] [address] Phone [phone] Care Team Providers Care Package Sealer Name Role Phone Pam Marshall Mae Primary Care Provider Reason for Visit * Reason Onset Date Comments Blood Pressure Check 11/21/2023 Encounter Details Date Type Department Care Team (Late st Contact Info) Description 11/21/2023 Telephone Nephrology, Tameka Arias [address] [place] [address] Stacie Estevez MD 200 [facility] [place] [address] Blood Pressure Check Allergies Active Allergy Reactions Criticality Noted Date Comments Oxycodone-Acetaminophen Itching High 05/12/2018 documented as of this encounter (statuses as of 11/26/2023) Medications Medication Sig Dispensed Refills Start Date [...] mouth. Pt takes in evening 0 Active [place]-3 Fatty Acids (FISH OIL) 1200 MG CPDR [...] as of this encounter (statuses as of 11/26/2023) Active Problems Problem Noted Date Diagnosed Date [...] Advised 5 year follow up. Done in [place]. Records requested. Family history of prostate cancer in father 05/10 Gout 05/14/2018 Coronary artery disease invo lving [place] coronary artery of [place] heart without angina pectoris 05/14/2018 Overview: Sees Cardiology in [place] History of coronary artery stent placement 05/14 Overview: 2016 stent placed HTN, goal below 140/90 05/14/2018 Hyperlipidemia with target LDL less than 70 02/2018 Chronic GERD 05/14/2018 Mitral valve prolapse 05/14/2018 Fatty liver 05/12/2018 Liver lesion 05/12/2018 documented as of this encounter (statuses as of 11/26/2023) Resolved Problems Problem Noted Date Diagnosed Date Resolved Date DENNIS (acute kidney injury) 04/04/2021 Pancytopenia 01/28/2019 07/07/2019 Subclinical hypothyroidism 06/04/2018 1 Type 2 diabetes mellitus wit h hemoglobin A1c goal of less than 7.0% 05/14/2018 07/08/2023 documented as of this encounter (statuses as of 11/26/2023) Immunizations Name Administration Dates Next Due Pneumococcal [...] 8:50 AM EDT Office Visit Family Medicine [address] [place] [phone] [place] [address] 01/29/2024 11:00 AM EDT Imaging Cardiac Studies, [facility] [address] [facility] [place] [address] 08/17/2024 2:20 PM EST Office Visit Nephrology [address] [place] [address] Stacie Estevez MD 200 [facility] [place] [address] Scheduled Procedures Name Priority Associated Diagnoses Date/Ti [...] 11/06/20242 024, 07/09/2023, 09/17/2022, Additional history exists GFR [...] filedocumented as of this encounter Care Teams Package Sealer Relationship Specialty Start Date End Date Pam Marshall DO [address] [place] [address] [place] [address] PCP - General Internal Medicine 03/06/22 documented as of this encounter
--- OUTSIDE RECORDS SUMMARY | 2024-01-12 03:47 | External Medical Summary | Summary of Care ---
Author Name Unknown Organization [facility] Address [address] [facility] [place] [address] Phone [phone] Care Team Providers Care Senior Solutions Consultant Name Role Phone Pam Marshall Mae Primary Care Provider Reason for Visit * Reason Onset Date Comments Blood Pressure Check 11/21/2023 Encounter Details Date Type Department Care Team (Late st Contact Info) Description 11/21/2023 Telephone Nephrology, Tameka Arias [address] [place] [address] Stacie Estevez MD 200 [place] [address] Blood Pressure Check Allergies Active Allergy Reactions [...] mouth. Pt takes in evening 0 Active [place]-3 Fatty Acids (FISH OIL) 1200 MG CPDR [...] Advised 5 year follow up. Done in [place]. Records requested. Family history of prostate cancer in father 05/10 Gout 05/14/2018 Coronary artery disease invo lving [place] coronary artery of [place] heart without angina pectoris 05/14/2018 Overview: Sees Cardiology in [place] History of coronary artery stent placement 05/14 [...] Encounter - Dottie Rutherford RN - 12/02/2023 9:02 AM EDT TE with pt- He would like to have this completed this week as he is going out of town next week. Willing to come to [place]. Appt made for 12/04/23. * Telephone Encounter - Dottie Rutherford RN - 12/02/2023 8:29 AM EDT LMAM with call back number to set up testing. * Telephone Encounter - Josey Rodriguez OSA - 12/01/2023 2:34 PM EDT Good afternoon, Pt on the line, calling to speak with Dottie. Please give him a call back at [phone]. Thank you * Telephone Encounter - Concepción [...] 12/04/2023 9:00 AM EDT Nurse Only Nephrology, Tameka [place] 200 [facility] [place], [place] [address] Sp, Nurse Nephrology 200 [place] [address] 01/28/2024 8:50 AM EDT Office Visit Family Medicine [address] [place] [phone] Pam [address] [place] [address] 01/29/2024 11:00 AM EDT Imaging Cardiac Studies, [facility] [address] [place] [id number] 08/17/2024 2:20 PM EST Office Visit Nephrology [address] [place] [address] Stacie Estevez MD [address] [place] [address] Scheduled Procedures Name Priority Associated Diagnoses Date/Ti [...] filedocumented as of this encounter Care Teams Senior Solutions Consultant Relationship Specialty Start Date End Date Pam Marshall DO [address] [place] [address] [place] [address] PCP - General Internal Medicine 03/06/22 documented as of this encounter
--- OUTSIDE RECORDS SUMMARY | 2024-01-12 03:47 | External Medical Summary | Summary of Care ---
Author Name Unknown Organization [facility] Address [address] [facility] [place] [address] Phone [phone] Care Team Providers Care Director Of Restaurant Name Role Phone Pam Marshall Mae Primary Care Provider Reason for Visit * Reason Onset Date Comments Blood Pressure Check 11/21/2023 Encounter Details Date Type Department Care Team (Late st Contact Info) Description 11/21/2023 Telephone Nephrology, Tameka Arias [address] [place] [address] Stacie Estevez MD 200 [facility] [place] [address] Blood Pressure Check Allergies Active Allergy Reactions Criticality Noted Date Comments Oxycodone-Acetaminophen Itching High 05/12/2018 documented as of this encounter (statuses as of 12/01/2023) Medications Medication Sig Dispensed Refills Start Date [...] mouth. Pt takes in evening 0 Active [place]-3 Fatty Acids (FISH OIL) 1200 MG CPDR [...] as of this encounter (statuses as of 12/01/2023) Active Problems Problem Noted Date Diagnosed Date [...] Advised 5 year follow up. Done in [place]. Records requested. 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 of [place] heart without angina pectoris 05/14/2018 Overview: Sees Cardiology in [place] History of coronary artery stent placement 05/14 Overview: 2016 stent placed HTN, goal below 140/90 05/14/2018 Hyperlipidemia with target LDL less than 70 02/2018 Chronic GERD 05/14/2018 Mitral valve prolapse 05/14/2018 Fatty liver 05/12/2018 Liver lesion 05/12/2018 documented as of this encounter (statuses as of 12/01/2023) Resolved Problems Problem Noted Date Diagnosed Date Resolved Date DENNIS (acute kidney injury) 04/04/2021 Pancytopenia 01/28/2019 07/07/2019 Subclinical hypothyroidism 06/04/2018 1 Type 2 diabetes mellitus wit h hemoglobin A1c goal of less than 7.0% 05/14/2018 07/08/2023 documented as of this encounter (statuses as of 12/01/2023) Immunizations Name Administration Dates Next Due Pneumococcal [...] encounter Miscellaneous Notes * Telephone Encounter - Josey Rodriguez OSA - 12/01/2023 2:34 PM EDT Good afternoon, Pt on the line, calling to speak with Dottie. Please give him a call back at [phone]. Thank you * Telephone Encounter - Concepción [...] 8:50 AM EDT Office Visit Family Medicine [address] [place] [phone] Pam Marshall[address] [place] [address] 01/29/2024 11:00 AM EDT Imaging Cardiac Studies, [facility] [address] [facility] [place] [address] 08/17/2024 2:20 PM EST Office Visit Nephrology [address] [place] [address] Stacie Estevez MD 200 [facility] [place] [address] Scheduled Procedures Name Priority Associated Diagnoses Date/Ti [...] filedocumented as of this encounter Care Teams Director Of Restaurant Relationship Specialty Start Date End Date Pam Marshall DO [address] [place] [address] [place] [address] PCP - General Internal Medicine 03/06/22 documented as of this encounter
--- OUTSIDE RECORDS SUMMARY | 2024-01-12 03:47 | External Medical Summary | Summary of Care ---
Author Name Unknown Organization [facility] Address [address] [facility] [place] [address] Phone [phone] Care Team Providers Care Transmission System Operator Name Role Phone Pam Marshall Mae Primary Care Provider Reason for Visit * Reason Onset Date Comments Blood Pressure Check 11/21/2023 Encounter Details Date Type Department Care Team (Late st Contact Info) Description 11/21/2023 Telephone Nephrology, Tameka Arias [address] [place] [address] Stacie Estevez MD 200 [facility] [place] [address] Blood Pressure Check Allergies Active Allergy Reactions [...] mouth. 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 Thank you * Telephone Encounter - Concepción [...] 8:50 AM EDT Office Visit Family Medicine [address] [place] [address] [address] [place] [address] 01/29/2024 11:00 AM EDT Imaging Cardiac Studies, [facility] [address] [facility] [place] [address] 08/17/2024 2:20 PM EST Office Visit Nephrology [address] [place] [address] Stacie Estevez MD 200 [facility] [place] [address] Scheduled Procedures Name Priority Associated Diagnoses Date/Ti [...] filedocumented as of this encounter Care Teams Transmission System Operator Relationship Specialty Start Date End Date Pam Marshall DO [address] [place] [address] [place] [address] PCP - General Internal Medicine 03/06/22 documented as of this encounter
--- OUTSIDE RECORDS SUMMARY | 2024-01-12 03:47 | External Medical Summary ---
Author Name Unknown Address Unknown Organization K09:[facility] [place] [address] Laboratory Report Ordering Provider Test Date Status ROGERSESPINOZA 12/04/2023 08:42:54 Final Observation Date Value Abnormality Reference (Units ) Status BUN 12/04/2023 08:42:54 56 Above high normal 6-20 (mg/dL) Final Creatinine 12/04/2023 08:42:54 2.4 Above high normal 0.6-1.2 (mg/dL) Final Glomerular filtration rate/1.73 sq M.predicted [Volume Rate/Area] in Serum, Plasma or Blood by Creatinine-based formula (CKD-EPI) 12/04/2023 08:42:54 29 Below low normal >=60 (mL/min) Final eGFR is calculated based on the CKD-EPI 2020 equation Sodium 12/04/2023 08:42:54 140 135-146 (m mol/L) Final Potassium 12/04/2023 08:42:54 5.1 3.5-5.1 (m mol/L) Final Cl 12/04/2023 08:42:54 106 98-107 (mm ol/L) Final CO2 12/04/2023 08:42:54 20 Below low normal 22- 32 (mmol/L) Final Anion gap 12/04/2023 08:42:54 14 7-15 (mmol /L) Final Glucose 12/04/2023 08:42:54 155 Above high normal 70 -120 (mg/dL) Final Calcium 12/04/2023 08:42:54 9.8 8.4-10.2 ( mg/dL) Final Performing Location [facility] [place] [address]
--- OUTSIDE RECORDS SUMMARY | 2024-01-12 03:47 | External Medical Summary | Summary of Care ---
Author Name Unknown Organization [facility] Address [address] [facility] [place] [address] Phone [phone] Care Team Providers Care Sales And Service Consultant Name Role Phone Marshall, Pamjulia Choudhury Primary Care Provider Reason for Visit * Reason Comments Medication Refill Encounter Details Date Type Department Care Team (Late st Contact Info) Description 12/14/2023 Refill Cardiology [address] [place] [address] Belgica Silva PA-C [address] [place] [address] HTN, goal below 140/90* Allergies Active Allergy Reactions Criticality Noted Date Comments Oxycodone-Acetaminophen Itching High 05/12/2018 documented as of this encounter (statuses as of 12/15/2023) Medications Medication Sig Dispensed Refills Start Date [...] mouth. Pt takes in evening 0 Active [place]-3 Fatty Acids (FISH OIL) 1200 MG CPDR Take by mouth. 0 Active Triamcinolone Acetonide 0.5 % External CreamIndications :Psoriasis APPLY TO AFFECTED AREA TWICE A DAY 30 g 11 05/03/2021 Active Pina Carlin 33GIndications:T ype 2 diabetes mellitus with hemoglobin [...] MORNING) 100 Tablet 3 12/15/2023 5 Active Metoprolol Succinate ER 100 MG Oral Tablet Extended Release 24 Hour (toPROL XL) TAKE ONE TABLET BY MOUTH EVERY EVENING (IN ADDITION TO THE 50 MG TABLET IN THE MORNING) 100 Tablet 3 11/21/2022 4 Discontinue d(Refill) documented as of this encounter (statuses as of 12/15/2023) Active Problems Problem Noted Date Diagnosed Date [...] Gout 05/14/2018 Coronary artery disease invo lving [place] coronary artery of [place] heart without angina pectoris 05/14/2018 Overview: Sees Cardiology in [place] History of coronary artery stent placement 05/14 Overview: 2016 stent placed HTN, goal below 140/90 05/14/2018 Hyperlipidemia with target LDL less than 70 02/2018 Chronic GERD 05/14/2018 Mitral valve prolapse 05/14/2018 Fatty liver 05/12/2018 Liver lesion 05/12/2018 documented as of this encounter (statuses as of 12/15/2023) Resolved Problems Problem Noted Date Diagnosed Date Resolved Date DENNIS (acute kidney injury) 04/04/2021 Pancytopenia 01/28/2019 07/07/2019 Subclinical hypothyroidism 06/04/2018 1 Type 2 diabetes mellitus wit h hemoglobin A1c goal of less than 7.0% 05/14/2018 07/08/2023 documented as of this encounter (statuses as of 12/15/2023) Immunizations Name Administration Dates Next Due Pneumococcal [...] encounter Miscellaneous Notes * Telephone Encounter - Belgica Silva PA-C - 12/15/2023 1:29 PM EDT Signed Prescriptions: Disp Refills Metoprolol Succinate ER 100 MG Oral Tablet*100 Ta*3 Sig: TAKE ONE TABLET BY MOUTH EVERY EVENING (IN ADDITION TO THE 50 MG TABLET IN THE MORNING) Authorizing Provider: BELGICA SILVA * Telephone Encounter - Divya George CMA - 12/15/2023 10:29 AM EDTPending Prescriptions: Disp Refills Metoprolol Succinate ER 100 MG Oral Tablet*100 Ta*3 Sig: TAKE ONE TABLET BY MOUTH EVERY EVENING (IN ADDITION TO THE 50 MG TABLET IN THE MORNING) * Telephone Encounter - Divya George CMA - 12/15/2023 10:28 AM EDT Did you pend patient's preferred pharmacy and medication before forwarding?yes Pharmacy: [facility] Pending Prescriptions: Disp Refills Metoprolol Succinate ER 100 MG Oral Table*100 Ta*3 Sig: TAKE ONE TABLET BY MOUTH EVERY EVENING (IN ADDITION TO THE 50 MG TABLET IN THE MORNING) Last Visit: 11/06/2023 (in office), Visit date not found (telemedicine) Next Visit: Visit date not found If no future appointments scheduled, and last appointment is greater than a year ago, please schedule patient for a follow-up appointment Last date the medication was ordered: 11-21-2022 Is this request for a controlled substance?No [...] 8:50 AM EDT Office Visit Family Medicine [address] [phone] Pam [address] [place] [address] 01/29/2024 11:00 AM EDT Imaging Cardiac Studies, [facility] 132 [place] [address] 08/17/2024 2:20 PM EST Office Visit Nephrology [address] [place] [address] Stacie Estevez MD 200 [facility] [place] [address] Scheduled Procedures Name Priority Associated Diagnoses Date/Ti [...] hypertension documented in this encounter Care Teams Sales And Service Consultant Relationship Specialty Start Date End Date Pam Marshall DO [address] [place] [address] [place] [phone] PCP - General Internal Medicine 03/06/22 documented as of this encounter
--- OUTSIDE RECORDS SUMMARY | 2024-01-12 03:47 | External Medical Summary ---
Author Name Unknown Address Unknown Organization K01:[facility] - [address] [place] [address] Laboratory Report Ordering Provider Test Date Status DURAN GARCIA 12/04/2023 08:42:54 Final Observation Date Value Abnormality Reference (Units ) Status MYCODE SPECIMEN-SST 12/04/2023 08:42:54 Freezing of extracted DNA, whole blood and/or serum. Final Performing Location [facility] - [address] [facility] [address]
--- OUTSIDE RECORDS SUMMARY | 2024-01-12 03:47 | External Medical Summary | Summary of Care ---
Author Name Unknown Organization [facility] Address [address] [facility] [place] [address] Phone [phone] Care Team Providers Care Rn Allergy Name Role Phone Pam Marshall Mae Primary Care Provider + [phone] Reason for Visit * Reason Comments Outpatient Testing Encounter Details Date Type Department Care Team (Late st Contact Info) Description 12/04/2023 9:30 AM EDT Laboratory Laboratory [facility] [address] [place] [phone] [place], [facility] [address] [place] [address] Uncontrolled hypertension; Hyperkalemia; [employer] Other*[id number] Allergies Active Allergy Reactions Criticality Noted Date [...] mouth. Pt takes in evening 0 Active [place]-3 Fatty Acids (FISH OIL) 1200 MG CPDR Take by mouth. 0 Active Triamcinolone Acetonide 0.5 % External CreamIndications: Psoriasis APPLY TO AFFECTED AREA TWICE A DAY 30 g 11 05/03/2021 Active Pina Carlin 33GIndications:Ty pe 2 diabetes mellitus with hemoglobin A1c goal of less than 7.0% ([facility]) Test blood sugar 4 times a day. DX E11.9 400 Each 09/11/2022 Active Tadalafil 10 MG Oral Tablet (Cialis) Take 1 Tablet by mouth daily as needed for Erectile Dysfunction. prior to intercourse, no more than 1 dose in 24 hours 4 Tablet 01/01/2023 Active Metoprolol Succinate ER 100 MG [...] hemoglobin A1c goal of less than 7.0% ([facility]) TAKE ONE TABLET BY [...] Gout 05/14/2018 Coronary artery disease invo lving [place] coronary artery of [place] heart without angina pectoris 05/14/2018 Overview: Sees [...] 9:00 AM EDT Nurse Only Nephrology, [place]ka [place] 200 [facility] [place] [address] Sp, Nurse Nephrology 200 [facility] [place] [address] Arrived 01/28/2024 8:50 AM EDT Office Visit Family Medicine [address] [place] [phone] [address] [place] [address] 01/29/2024 11:00 AM EDT Imaging Cardiac Studies, [address] [place] [address] 08/17/2024 2:20 PM EST Office Visit Nephrology [address] [place] [address] Stacie Estevez MD [address] [place] [address] Pending Results Name Type Priority Associated Diagnoses Date /Time BASIC METABOLIC PANEL Lab Routine Uncontrolled hypertension Hyperkalemia 12/04/2023 8:42 AM EDT MYCODE SUBSEQUENT ADULT Lab Routine [employer] Other*[id number] 12/04/2023 8:42 AM EDT MYCODE SST1 Lab Routine [employer] Other*[id number] 12/04/2023 8:42 AM EDT MYCODE SST2 Lab Routine [employer] Other*[id number] 12/04/2023 8:42 AM EDT Scheduled Procedures Name Priority Associated [...] as of this encounter Visit Diagnoses Diagnosis Uncontrolled hypertension Unspecified essential hypertension Hyperkalemia Hyperpotassemia [employer] Other*[id number] documented in this encounter Care Teams Rn Allergy Relationship Specialty Start Date End Date Pam Marshall DO [address] [place] [address] [place] [phone] PCP - General Internal Medicine 03/06/22 documented as of this encounter
--- OUTSIDE RECORDS SUMMARY | 2024-01-12 03:47 | External Medical Summary | Summary of Care ---
Author Name Unknown Organization [facility] Address [address] [facility] [place] [address] Phone [phone] Care Team Providers Care Barrel Straightener Name Role Phone Pam Marshall Mae Primary Care Provider Reason for Visit * Reason Onset Date Comments Blood Pressure Check 11/21/2023 Encounter Details Date Type Department Care Team (Late st Contact Info) Description 11/21/2023 Telephone Nephrology, Tameka Arias [address] [place] [address] Stacie Estevez MD 200 [facility] [place] [address] Blood Pressure Check Allergies Active Allergy Reactions Criticality Noted Date Comments Oxycodone-Acetaminophen Itching High 05/12/2018 documented as of this encounter (statuses as of 11/21/2023) Medications Medication Sig Dispensed Refills Start Date [...] mouth. Pt takes in evening 0 Active [place]-3 Fatty Acids (FISH OIL) 1200 MG CPDR [...] as of this encounter (statuses as of 11/21/2023) Active Problems Problem Noted Date Diagnosed Date [...] Advised 5 year follow up. Done in [place]. Records requested. Family history of prostate cancer in father 05/10 Gout 05/14/2018 Coronary artery disease invo lving [place] coronary artery of [place] heart without angina pectoris 05/14/2018 Overview: Sees Cardiology in [place] History of coronary artery stent placement 05/14 Overview: 2016 stent placed HTN, goal below 140/90 05/14/2018 Hyperlipidemia with target LDL less than 70 02/2018 Chronic GERD 05/14/2018 Mitral valve prolapse 05/14/2018 Fatty liver 05/12/2018 Liver lesion 05/12/2018 documented as of this encounter (statuses as of 11/21/2023) Resolved Problems Problem Noted Date Diagnosed Date Resolved Date DENNIS (acute kidney injury) 04/04/2021 Pancytopenia 01/28/2019 07/07/2019 Subclinical hypothyroidism 06/04/2018 1 Type 2 diabetes mellitus wit h hemoglobin A1c goal of less than 7.0% 05/14/2018 07/08/2023 documented as of this encounter (statuses as of 11/21/2023) Immunizations Name Administration Dates Next Due Pneumococcal [...] 8:50 AM EDT Office Visit Family Medicine [address] [place] [phone] [place] [address] 01/29/2024 11:00 AM EDT Imaging Cardiac Studies, [facility] [address] [place] [address] 08/17/2024 2:20 PM EST Office Visit Nephrology [address] [place] [address] Stacie Estevez MD [address] [place] [address] Scheduled Procedures Name Priority Associated Diagnoses Date/Ti [...] filedocumented as of this encounter Care Teams Barrel Straightener Relationship Specialty Start Date End Date Pam Marshall DO [address] [place] [address] [place] [address] PCP - General Internal Medicine 03/06/22 documented as of this encounter
--- OUTSIDE RECORDS SUMMARY | 2024-01-12 03:47 | External Medical Summary | Summary of Care ---
Author Name Unknown Organization [facility] Address [address] [facility] [facility] [address] Phone [phone] Care Team Providers Care Course Instructor Name Role Phone HobbsJeffery ly Primary Care Provider [phone] Reason for Referral * Evaluate & Treat - Unlimited Visits (Within 10 days (routine)) - Authorized Specialty Diagnoses / Procedures Referred By Contac t Referred To Contact Pharmacist / Pharmacy Diagnoses Uncontrolled hypertension Elevated blood pressure reading in office with white coat syndrome, with diagnosis of hypertension HTN, goal below 130/80 Stacie Estevez MD [address] [place] [address] Referral ID Status Reason Start Date Expiration Date Visits Requested Visits Authorized [id number] Authorized Specialty Services Required 11/21/2023 99 99 Question Answer Referral Priority Within 10 days (routine) Where should this appointment be scheduled? [facility] Referring Provider Role: Specialist Specialty: Nephro Reason for Referral: HTN Goal BP: < 130/80 - pls send me tel encounter if he declines; BP uncontrolled; needs smbp Comments Pharmacist Medication Therapy Management: Minimum frequency patient should be seen in person for medication management: as appropriate per clinical condition and patient status By my signature, I understand that my patient Magan Lakhani will have his medication therapy managed by the [facility]ication [facility] ([facility]) per established policies, procedures, and protocols. I also certify that this referral may serve as an initiation of service for the management of drug therapy in the above noted patient. [facility] providers will be responsible for scheduling patient visits, obtaining appropriate laboratory studies, and adjusting medication management therapy per patient's need, in addition to those roles spelled out in the clinic policy, procedures, and drug management protocols. I understand that the service provided by the [facility] Clinic is voluntary and have informed patient that they can refuse the service at their discretion. I am aware that the [facility] Clinic will provide me with a copy of the patient encounter via my [employer]. I authorize the [facility] Clinic to carry out these activities on my behalf. I consider this program to be a necessary part of the patient's medical care. Stacie Estevez MD Reason for Visit * Reason Comments Return Visit Hypertension Encounter Details Date Type Department Care Team (Late st Contact Info) Description 11/11/2023 8:00 AM EST Office Visit Nephrology, Tameka Arias [address] [facility] [place] [address] Stacie Estevez MD [address] [facility] [place] [address] Uncontrolled hypertension*; Elevated blood pressure reading in office with white coat syndrome, with diagnosis of hypertension; HTN, goal below 130/80; Persistent proteinuria; Elevated blood pressure, situational; Hyperkalemia; Type 2 diabetes, controlled, with peripheral neuropathy (HCC) Allergies Active Allergy Reactions Criticality Noted Date [...] mouth. Pt takes in evening 0 Active Aurora-3 Fatty Acids (FISH OIL) 1200 MG CPDR Take by mouth. 0 Active Triamcinolone Acetonide 0.5 % External CreamIndications: Psoriasis APPLY TO AFFECTED AREA TWICE A DAY 30 g 11 05/03/2021 Active OneTouch Delica Lancets 33GIndications:Ty pe 2 diabetes mellitus with hemoglobin A1c goal of less than 7.0% ([facility]) Test blood sugar 4 times [...] Gout 05/14/2018 Coronary artery disease invo lving [place] coronary artery of [place] heart without angina pectoris 05/14/2018 Overview: Sees [...] Sign Reading Time Taken Comments Blood Pressure 155/65 11/11/2023 8:19 AM EST Pulse 53 11/11/2023 8:19 AM EST Temperature 36.5 C (97.7 F) 11/11/2023 8:13 AM ES T Respiratory Rate 20 11/11/2023 8:13 AM EST Oxygen Saturation 95% 11/11/2023 8:13 AM EST Inhaled Oxygen Concentration - - Weight 97 kg (213 lb 12.8 oz) 11/11/2023 8:13 AM EST Height - - Body Mass Index 37.87 07/08/2023 8:50 AM EDT documented in this encounter Patient Instructions * Patient Instructions* Stacie Estevez MD - 11/11/2023 8:51 AM EST -work at better sleep habits -reach out to neurology about neuropathy medicine upsetting your sleep; if that's not it, then discuss w/ Dr Hobbs -work at getting back in an exercise routine >>start chlorthalidone 12.5 mg daily (1/2 of a 25 mg tablet) -no change to other medications -don't eat potatoes until you start chlorthalidone and then in moderate amounts b/c of your potassium -eat a low sodium diet (less than 2000 mg or 1/2 tsp) daily -labs after about a week on chlorthalidone -will get you a [place] pharmacist to help us with your blood pressure control -will get you a 24 hr BP study (will try for [place]) >> when you come in for that test, bring your new home bp cuff along so KIDNEY nurse can check it documented in this encounter Progress Notes * Stacie Estevez MD - 11/11/2023 8:29 AM EST NEPHROLOGY CLINIC NOTE Nephrology, Tameka Arias [address] [facility] [address] 11/11/2023, 8:30 AM Patient Name: Magan Lakhani BACKGROUND: 68 year old male presents for follow-up of HTN, proteinuria. PMH includes CAD s/p stent 2015, about DM since since at least 2009, HTN since at least 2009 and w/o hx of urgency and w/ hx white coat HTN, HL, gout, fatty liver and liver hemangioma, hypothyroid; had covid Jul 2020. peripheral neruopathy which can be severe attrib to DM and EtOH. Never user of tobacco. Likes EtOH, more since retired. Follows w/ GI prn now for liver Home blood pressure checks: yes has upper arm cuff, but on Sep 2022 check not accurate History of stones: never Family history of CKD or ESRD: none NSAID use: Never Herbals/supplements: nothing off of med list Last hospital stay: obs'd for non cardiac chest pain remotely prior to 2020; cant remember date Has baselien creatinine 0.9 x years; then routine labs 02/2021 had K 6.4, creat 4.4; then 2 wks later had creat back to 1 and K wnl. This was prerenal/ischemic ATN after working outside in hot weather. Around time of bad labs had trouble voiding and no urine passed x 2 dys; no pain, no blood, no n/v. Now voiding ok; denies hx of stones. Again labs were routine. 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 , lives independently. With shelter gained 20+ lb, though has lost 40 lb in past w/ portion control, more fruits/veggies. Exercises -- has a tape of Leonel T exercising -- no weights, mostly cardio. Drinks EtOH > more since shelter. 3-10 beers on days he drinks. Can go 1-2 wks w/o beer At November 2021 [facility] [place] he had stopped multiple medications because he felt he was taking too many pills. March 11-April 11 2023 had no EtOH. Does acknowledge heavier drinking over Labor day weekend, last one 48 hrs back on holiday. "My nerves have really been on edge lately" including $$$ worries. TODAY 11/11/2023: seen in [place] he can't remember/ a while back for flank pain but u/s negative; no stone; pain resolved; no gross hematuria. Another ER visit [facility] cellulitis painful and resolved w/ tx. Referred pt at last year's visit to [facility] for HTN but he declined that per our records when they [facility] stating [place] managed HTN. No exercise routine past few mos Last record we have of cuff home for him is not validated Had his meds today; States has not slept x 2 days and ? D/t nortryptylene he thinks. Some concern at visit today about incomplete/?reliable hx REVIEW OF SYSTEMS: No F/C, intended wt gain past year >> was 189 lb at last OV 2023, energy level and appetite acceptable No HELLER occasional palpitations; no angina, orthopnea; had recent minimal LE edema resolved spontaneously No cough, wheeze; notes new exertional dypsnea but did take stairs to 2nd floor clinic today No N/V/D/C/abd pain, HB No dysuria, hematuria, nocturia >2X; no new or worrisome voiding symptoms; no further anuric episodes like he had in 02/2021 No focal joint/muscle aches No inappropriate bleeding or bruising No tremor, seizures, focal or global weakness or paresthesias apart from neuropathy No orthostatic or presyncopal symptoms; no falls except fall this winter on ice Current Outpatient Medications Medication Sig Dispense Refill Aspirin 81 MG Tablet Take 1 Tablet by mouth in the morning. Cyanocobalamin (B-12) 1000 MCG TABS Take by mouth. Cholecalciferol 50 MCG (2000 UT) Oral Capsule Take 1 Capsule by mouth in the morning. Multiple Vitamins-Minerals (MULTIVITAMIN MEN 50+) TABS Take by mouth. Pt takes in evening Aurora-3 Fatty Acids (FISH OIL) 1200 MG CPDR [...] TAKE ONE CAPSULE BY MOUTH EVERY MORNING (Patient taking differently: Takes in the evening) 100 Capsule 1 glipiZIDE ER 5 MG [...] BY MOUTH EVERY MORNING 100 Tablet 1 Iron (Ferrous Sulfate) 325 (65 Fe) MG Oral Tablet 1 tablet daily Chlorthalidone 25 MG Oral Tablet (Hygroton) Take one-half tablet by mouth in the morning. 45 Tablet3 Atorvastatin Calcium 40 MG Oral Tablet (Lipitor) TAKE ONE TABLET BY MOUTH EVERY DAY (Patient takingdifferently: TAKES IN THE EVENING) 100 Tablet 1 No current facility-administered medications for this visit. Review of patient's allergies indicates: Allergen Reactions Percocet [Oxycodone-Acetaminophen] Itching PHYSICAL EXAMINATION: BP Readings from Last 6 Encounters: 11/11/23 155/65 11/06/23 156/78 07/08/23 162/90 01/16/23 152/78 01/01/23 162/80 11/21/22 156/78 Wt Readings from Last 6 Encounters: 11/11/23 97 kg (213 lb 12.8 oz) 11/06/23 93.2 kg (205 lb 6.4 oz) 07/08/23 92.3 kg (203 lb 6.4 oz) 01/16/23 89.4 kg (197 lb) 01/01/23 89.1 kg (196 lb 6.4 oz) 11/21/22 87 kg (191 lb 12.8 oz) Pulse Readings from Last 6 Encounters: 11/11/23 53 11/06/23 92 07/08/23 100 01/16/23 81 01/01/23 84 11/21/22 76 NAD, oriented x 3, small stature, ambulatory w/o asst, Normocephalic, atraumatic, eomi nonicteric sclerae MMM Supple neck RRR w/o m/g/r; no edema CTAB w/ reasonable air mvt NT abd, +BS, soft No cyanosis or clubbing No rash No tremor, focal or global weakness; fluent speech, some concerns about reliability as historian LABS: Recent Labs Units 11/07/23 1419 07/08/23 0923 07/01/23 0753 12/27/22 0859 09/17/22 0833 SODIUM - [facility] mmol/L 132* -- 135 138 138 POTASSIUM - [facility] mmol/L 5.5* 4.9 5.4* 5.0 4.9 CHLORIDE - [facility] mmol/L 98 -- 99 102 99 CO2 - [facility] mmol/L 21* -- 23 25 26 BUN - [facility] mg/dL 30* -- 26* 31* 23* CREATININE - [facility] mg/dL 1.1 -- 1.2 1.3* 1.0 ESTIMATED GLOMERULAR FILTRATION RATE - [facility] mL/min 73 -- 64 61 82 Recent Labs Units 07/08/23 0923 07/01/23 0753 03/06/22 1157 02/12/22 0743 HGB g/dL -- 9.9* 11.6* 12.0* FERRITIN - [facility] ng/mL 130 -- 110 -- TRANSFERRIN SATURATION PERCENT - [facility] % 10* -- 20 -- Recent Labs Units 11/07/23 1419 07/01/23 0753 12/27/22 0859 09/17/22 0833 07/05/22 0855 05/15/22 1342 03/06/22 1157 CALCIUM - [facility] mg/dL 10.0 9.5 9.5 9.6 < > 9.2 9.6 PHOSPHORUS - [facility] mg/dL -- -- -- -- -- 3.9 -- 25-HYDROXY VITAMIN D - [facility] ng/mL -- -- -- -- -- -- 38 < > = values in this interval not displayed. Recent Labs Units 07/01/23 0753 12/27/22 0859 03/06/22 1157 HEMOGLOBIN A1C - [facility] % 6.8* 6.9* 7.9* Recent Labs Units 11/07/23 1419 07/09/23 1136 09/17/22 0833 02/12/22 0743 ALBUMIN / CREATININE RATIO, URINE - [facility] mg/g Creat 141* 256* 124* 861* PROTEIN/ CREATININE RATIO, URINE - [facility] mg/g -- -- -- 1,556* Recent Labs Units 11/07/23 1419 09/17/22 0833 05/15/22 1342 02/12/22 0743 CLARITY, URINE - [facility] Clear Clear Clear Clear GLUCOSE, URINE - [facility] mg/dL Negative Negative Negative 50* BILIRUBIN, URINE - [facility] Negative Negative Negative Negative KETONE, URINE - [facility] mg/dL Negative Negative Negative Negative SPECIFIC GRAVITY, URINE - [facility] 1.008 1.017 1.014 1.013 BLOOD, URINE - [facility] Negative Negative Negative Negative PH, URINE - [facility] Units 6.0 6.0 8.0* 7.5 PROTEIN, URINE - [facility] mg/dL Negative Trace* 100* 100* PROTEIN, RANDOM URINE - [facility] mg/dL -- -- -- 56 UROBILINOGEN, URINE - [facility] mg/dL Normal Normal Normal Normal NITRITE, URINE - [facility] Negative Negative Negative Negative ESTERASE, URINE - [facility] Negative Negative Negative Negative BACTERIA, URINE - [facility] /HPF 0-25 0-25 0-25 0-25 WBC, URINE - [facility] /HPF 0-2 0-2 0-2 0-2 RBC, URINE - [facility] /HPF 0-2 0-2 0-2 0-2 ASSESSMENT AND PLAN: Uncontrolled hypertension (Primary) - BASIC METABOLIC PANEL; Future; Expected date: 11/12/2023 - PHARMACIST MEDS THERAPY MGMT REFERRAL OP - BP MONITORING 24HR, AMBULATORY Elevated blood pressure reading in office with white coat syndrome, with diagnosis of hypertension - PHARMACIST MEDS THERAPY MGMT REFERRAL OP - BP MONITORING 24HR, AMBULATORY HTN, goal below 130/80 - PHARMACIST MEDS THERAPY MGMT REFERRAL OP Persistent proteinuria Elevated blood pressure, situational - BP MONITORING 24HR, AMBULATORY Hyperkalemia - BASIC METABOLIC PANEL; Future; Expected date: 11/12/2023 Type 2 diabetes, controlled, with peripheral neuropathy (HCC) Other orders - Chlorthalidone 25 MG Oral Tablet (Hygroton); Take one-half tablet by mouth in the morning. Follow Up: Return in about 2 months (around 01/11/2024) for clinic visit w/ [place]. | For: clinic visit w/ PA | Check-out note: [place] [facility] Uncontrolled BP today w/ recent elevation of K on labs a few days back and no sx; situational element today and at previous visits -neuropathy pain control as below -clhorthalidone -re -refer to [facility] -NNOTE as far as we know home cuff still not valid > consider [facility] order -low Na diet + sleep regimen; lifestyle Hyperkalemia moderate -start chlortahlidone, low K diet -for now w/ uncontrolled HTN, continue benazeprin, spirionlactone Protienuria despite everything improving -low Na diet -focus on BP control -cont ROB, spironolactone Medically complex patient with uncontrolled BP and abnromal labs at high risk for complications such as DENNIS, hospital encounter Patient Instructions -work at better sleep habits -reach out to neurology about neuropathy medicine upsetting your sleep; if that's not it, then discuss w/ Dr Hobbs -work at getting back in an exercise routine >>start chlorthalidone 12.5 mg daily (1/2 of a 25 mg tablet) -no change to other medications -don't eat potatoes until you start chlorthalidone and then in moderate amounts b/c of your potassium -eat a low sodium diet (less than 2000 mg or 1/2 tsp) daily -labs after about a week on chlorthalidone -will get you a [place] pharmacist to help us with your blood pressure control -will get you a 24 hr BP study (will try for [place]) >> when you come in for that test, bring your new home bp cuff along so KIDNEY nurse can check it Stacie Estevez MD Nephrology, [address] [place] [address] CC: Ref: JEFFERY HOBBS[[id number]] [address] [place] [address] [place] [phone] (office) [phone] (fax) PCP: JEFFERY HOBBS [address] [place] [address] [place] [address] [phone] This chart was completed in part utilizing [employer] Direct Speech Voice Recognition Software. Randomword insertions, pronoun errors, and incomplete sentences are an occasional consequence of this system due to software limitations, and ambient noise. Any questions or concerns about the content, text, or information contained within the body of this dictation should be directly addressed to the provider for clarification. documented in this encounter Nursing Notes * Concepción Briones LPN - 11/11/2023 8:10 AM EST Patient identified by verbal name and date of .[facility] visit [facility] No inpatient hospital stays No surgery Pt notes SOB with exertion No lower extremity edema Pt does monitor BP at home documented in this encounter Plan of Treatment Upcoming Encounters Date Type Department Care Team (Late st Contact Info) Description 01/28/2024 8:50 AM EDT Office Visit Family Medicine [address] [place] [phone] [address] [place] [address] 01/29/2024 11:00 AM EDT Imaging Cardiac Studies, [facility] [address] [facility] [place] [address] 08/17/2024 2:20 PM EST Office Visit Nephrology [address] [place] [address] Stacie Estevez MD [address] [facility] [place] [address] Scheduled Orders Name Type Priority Associated Diagnoses Orde r Schedule BASIC METABOLIC PANEL Lab Routine Uncontrolled hypertension Hyperkalemia Expected: 11/12/2023 (Approximate), Expires: 11/10/2024 BP MONITORING 24HR, AMBULATORY Procedures Routine Uncontrolled hypertension Elevated blood pressure reading in office with white coat syndrome, with diagnosis of hypertension Elevated blood pressure, situational Ordered: 11/21/2023 Scheduled Procedures Name Priority Associated Diagnoses Date/Ti [...] of this encounter Visit Diagnoses Diagnosis Uncontrolled hypertension- Primary Unspecified essential hypertension Elevated blood pressure reading in office with white coat syndrome, with diagnosis of hypertension HTN, goal below 130/80 Unspecified essential hypertension Persistent proteinuria Proteinuria Elevated blood pressure, situational Elevated blood pressure reading without diagnosis of hypertension Hyperkalemia Hyperpotassemia Type 2 diabetes, controlled, with peripheral neuropathy (HCC) Type II or unspecified type diabetes mellitus with neurological manifestations, not stated as uncontrolled documented in this encounter Care Teams Course Instructor Relationship Specialty Start Date End Date Jeffery Hobbs DO [address] [place] [address] [place] [address] PCP - General Internal Medicine 03/06/22 documented as of this encounter
--- OUTSIDE RECORDS SUMMARY | 2024-01-12 03:47 | External Medical Summary ---
Author Name Unknown Address Unknown Organization K01:[facility] [place] [address] [place] [address] Laboratory Report Ordering Provider Test Date Status DURAN GARCIA 12/04/2023 08:42:54 Final Observation Date Value Abnormality Reference (Units ) Status MYCODE SPECIMEN-SST 12/04/2023 08:42:54 Freezing of extracted DNA, whole blood and/or serum. Final Performing Location [facility] [place] [address] [place] [address]
--- OUTSIDE RECORDS SUMMARY | 2024-01-12 03:47 | External Medical Summary | Summary of Care ---
Author Name Unknown Organization [facility] Address [address] [facility] [place] [address] Phone [phone] Care Team Providers Care Sales Representative Supervisor Name Role Phone Marshall, Pamjulia Choudhury Primary Care Provider [phone] Reason for Visit * Reason Comments Medication Refill Encounter Details Date Type Department Care Team (Late st Contact Info) Description 12/09/2023 Refill Cardiology [address] [place] [address] Belgica Silva PA-C [address] [place] [address] HTN, goal below 140/90* Allergies Active Allergy Reactions Criticality Noted Date Comments Oxycodone-Acetaminophen Itching High 05/12/2018 documented as of this encounter (statuses as of 12/09/2023) Medications Medication Sig Dispensed Refills Start Date [...] mouth. Pt takes in evening 0 Active [place]-3 Fatty Acids (FISH OIL) 1200 MG CPDR [...] IN THE MORNING) 100 Tablet 3 11/21/2022 Active Levothyroxine Sodium 112 MCG Oral Tablet [...] 3 12/09/2023 5 Active Metoprolol Succinate ER 50 MG Oral Tablet Extended Release 24 Hour (toPROL XL) TAKE ONE TABLET BY MOUTH EVERY MORNING (IN ADDDITION TO 100 MG TABLET IN THE EVENING) 100 Tablet 3 11/21/2022 4 Discontinue d(Refill) documented as of this encounter (statuses as of 12/09/2023) Active Problems Problem Noted Date Diagnosed Date [...] Gout 05/14/2018 Coronary artery disease invo lving [place] coronary artery of [place] heart without angina pectoris 05/14/2018 Overview: Sees Cardiology in [place] History of coronary artery stent placement 05/14 Overview: 2016 stent placed HTN, goal below 140/90 05/14/2018 Hyperlipidemia with target LDL less than 70 02/2018 Chronic GERD 05/14/2018 Mitral valve prolapse 05/14/2018 Fatty liver 05/12/2018 Liver lesion 05/12/2018 documented as of this encounter (statuses as of 12/09/2023) Resolved Problems Problem Noted Date Diagnosed Date Resolved Date DENNIS (acute kidney injury) 04/04/2021 Pancytopenia 01/28/2019 07/07/2019 Subclinical hypothyroidism 06/04/2018 1 Type 2 diabetes mellitus wit h hemoglobin A1c goal of less than 7.0% 05/14/2018 07/08/2023 documented as of this encounter (statuses as of 12/09/2023) Immunizations Name Administration Dates Next Due Pneumococcal [...] Telephone Encounter - Belgica Silva PA-C - 12/09/2023 4:14 PM EDT Signed Prescriptions: Disp Refills Metoprolol Succinate ER 50 MG Oral Tablet *90 Tab*3 Sig: TAKE ONE TABLET BY MOUTH EVERY MORNING (IN ADDDITION TO 100 MG TABLET IN THE EVENING) Authorizing Provider: BELGICA SILVA * Telephone Encounter - Divya George CMA - 12/09/2023 10:56 AM EDTPending Prescriptions: Disp Refills Metoprolol Succinate ER 50 MG Oral Tablet *90 Tab*3 Sig: TAKE ONE TABLET BY MOUTH EVERY MORNING (IN ADDDITION TO 100 MG TABLET IN THE EVENING) * Telephone Encounter - Divya George CMA - 12/09/2023 10:56 AM EDT Did you pend patient's preferred pharmacy and medication before forwarding?yes Pharmacy: [facility] Pending Prescriptions: Disp Refills Metoprolol Succinate ER 50 MG Oral Tablet*90 Tab*3 Sig: TAKE ONE TABLET BY MOUTH EVERY MORNING (IN ADDDITION TO 100 MG TABLET IN THE EVENING) Last Visit: 11/06/2023 (in office), Visit date [...] 8:50 AM EDT Office Visit Family Medicine [address] [place] [phone] Pam Marshall[address] [place] [address] 01/29/2024 11:00 AM EDT Imaging Cardiac Studies, [facility] [address] [facility] [place] [address] 08/17/2024 2:20 PM EST Office Visit Nephrology [address] [place] [address] Satcie Estevez MD 200 [facility] [place] [address] Scheduled Procedures Name Priority Associated Diagnoses Date/Ti [...] documented in this encounter Care Teams Sales Representative Supervisor Relationship Specialty Start Date End Date Pam Marshall DO [address] [place] [address] [place] [phone] PCP - General Internal Medicine 03/06/22 documented as of this encounter
--- OUTSIDE RECORDS SUMMARY | 2024-01-12 03:47 | External Medical Summary | Summary of Care ---
Author Name Unknown Organization [facility] Address [address] [place] [address] Phone [phone] Care Team Providers Care Fire Extinguisher Repairer Name Role Phone MarshallPam ly Primary Care Provider [phone] Encounter Details Date Type Department Care Team (Late st Contact Info) Description 11/17/2023 Orders Only Outcomes Research Department [address], [place] [id number] Liliana Jerome CHRA [employer] Research Other*[id number] Allergies Active Allergy Reactions Criticality Noted Date Comments Oxycodone-Acetaminophen Itching High 05/12/2018 documented as of this encounter (statuses as of 11/17/2023) Medications Medication Sig Dispensed Refills Start Date [...] mouth. Pt takes in evening 0 Active [place]-3 Fatty Acids (FISH OIL) 1200 MG CPDR Take by mouth. 0 Active Triamcinolone Acetonide 0.5 % External CreamIndications: Psoriasis APPLY TO AFFECTED AREA TWICE A DAY 30 g 11 05/03/2021 Active OneTouch Delica Lancets 33GIndications:Ty pe 2 diabetes mellitus with hemoglobin A1c goal of less than 7.0% ([facility]) Test blood sugar 4 times [...] as of this encounter (statuses as of 11/17/2023) Active Problems Problem Noted Date Diagnosed Date [...] Gout 05/14/2018 Coronary artery disease invo lving [place] coronary artery of [place] heart without angina pectoris 05/14/2018 Overview: Sees Cardiology in [place] History of coronary artery stent placement 05/14 Overview: 2016 stent placed HTN, goal below 140/90 05/14/2018 Hyperlipidemia with target LDL less than 70 02/2018 Chronic GERD 05/14/2018 Mitral valve prolapse 05/14/2018 Fatty liver 05/12/2018 Liver lesion 05/12/2018 documented as of this encounter (statuses as of 11/17/2023) Resolved Problems Problem Noted Date Diagnosed Date Resolved Date DENNIS (acute kidney injury) 04/04/2021 Pancytopenia 01/28/2019 07/07/2019 Subclinical hypothyroidism 06/04/2018 1 Type 2 diabetes mellitus wit h hemoglobin A1c goal of less than 7.0% 05/14/2018 07/08/2023 documented as of this encounter (statuses as of 11/17/2023) Immunizations Name Administration Dates Next Due Pneumococcal [...] 8:50 AM EDT Office Visit Family Medicine [address] [place] [phone] Pam Marshall[address] [place] [address] 01/29/2024 11:00 AM EDT Imaging Cardiac Studies, [address] [place] [address] 08/17/2024 2:20 PM EST Office Visit Nephrology [address] [place] [address] Stacie Estevez MD [address] [facility] [place] [address] Scheduled Orders Name Type Priority Associated Diagnoses Orde r Schedule MYCODE SUBSEQUENT ADULT Lab Routine [employer] Other*[id number] Every 6 Months for 2 Occurrences starting 11/17/2023 until 12/06/2024 Scheduled Procedures Name Priority Associated Diagnoses Date/Ti [...] as of this encounter Visit Diagnoses Diagnosis [employer] Other*[id number] documented in this encounter Care Teams Fire Extinguisher Repairer Relationship Specialty Start Date End Date Pam Marshall DO [address] [place] [address] [place] [address] PCP - General Internal Medicine 03/06/22 documented as of this encounter
--- OUTSIDE RECORDS SUMMARY | 2024-01-12 03:48 | External Medical Summary | Summary of Care ---
Author Name Unknown Organization [facility] Address [address] [facility] [place] [address] Phone [phone] Care Team Providers Care Forestry Extension Specialist Name Role Phone Pam Marshall DO Primary Care Provider Encounter Details Date Type Department Care Team (Late st Contact Info) Description 10/27/2023 Orders Only Family Medicine [address] [place] [address] Pam Marshall [address] [place] [address] Allergies Active Allergy Reactions Criticality Noted Date Comments Oxycodone-Acetaminophen Itching High 05/12/2018 documented as of this encounter (statuses as of 10/28/2023) Medications Medication Sig Dispensed Refills Start Date End Date Status Aspirin 81 MG Tablet Take 1 Tablet by mouth in the morning. 0 Active Cyanocobalamin (B-12) 1000 MCG TABS Take by mouth. 0 Active Cholecalciferol 50 MCG (2000 UT) Oral Capsule Take 1 Capsule by mouth in the morning. 0 Active Multiple Vitamins-Minerals (MULTIVITAMIN MEN 50+) TABS Take by mouth. 0 Active [place]-3 Fatty Acids (FISH OIL) 1200 MG CPDR Take by mouth. 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 TAKE ONE TABLET BY MOUTH EVERY MORNING 100 Tablet 09/30/2023 Active Nortriptyline HCl 10 MG Oral Capsule (Pamelor) TAKE TWO CAPSULES BY MOUTH EVERY DAY AT BEDTIME 200 Capsule 09/30/2023 Active metFORMIN HCl 1000 MG Oral Tablet (Glucophage)Indica tions:Type 2 diabetes mellitus with hemoglobin A1c goal of less than 7.0% ([facility]) TAKE ONE TABLET BY MOUTH TWICE A DAY -- IN THE MORNING AND BEFORE BEDTIME 200 Tablet 09/30/2023 Active amLODIPine Besy-Benazepril HCl 10-40 MG Oral Capsule (Lotrel)Indication s:HTN, goal below 140/90 TAKE ONE CAPSULE BY MOUTH EVERY MORNING 100 Capsule 09/30/2023 Active glipiZIDE ER 5 MG Oral Tablet Extended Release 24 Hour (Glucotrol XL) TAKE ONE TABLET BY MOUTH EVERY MORNING -- 30 MINUTES BEFORE A MEAL 100 Tablet 09/30/2023 Active Lansoprazole 30 MG Oral Capsule Delayed Release (Prevacid) TAKE ONE CAPSULE BY MOUTH EVERY MORNING 100 Capsule 09/30/2023 Active Spironolactone 25 MG Oral Tablet (Aldactone)Indicat ions:HTN, goal below 140/90 TAKE ONE TABLET BY MOUTH EVERY MORNING 100 Tablet 1 09/30/2023 Active Atorvastatin Calcium 40 MG Oral Tablet (Lipitor)Indicatio ns:Hyperlipidemia with target LDL less than 70 TAKE ONE TABLET BY MOUTH EVERY DAY 100 Tablet 1 09/30/2023 Active documented as of this encounter (statuses as of 10/28/2023) Active Problems Problem Noted Date Diagnosed Date [...] Gout 05/14/2018 Coronary artery disease invo lving [place] coronary artery of [place] heart without angina pectoris 05/14/2018 Overview: Sees Cardiology in [place] History of coronary artery stent placement 05/14 Overview: 2016 stent placed HTN, goal below 140/90 05/14/2018 Hyperlipidemia with target LDL less than 70 02/2018 Chronic GERD 05/14/2018 Mitral valve prolapse 05/14/2018 Fatty liver 05/12/2018 Liver lesion 05/12/2018 documented as of this encounter (statuses as of 10/28/2023) Resolved Problems Problem Noted Date Diagnosed Date Resolved Date DENNIS (acute kidney injury) 04/04/2021 Pancytopenia 01/28/2019 07/07/2019 Subclinical hypothyroidism 06/04/2018 1 Type 2 diabetes mellitus wit h hemoglobin A1c goal of less than 7.0% 05/14/2018 07/08/2023 documented as of this encounter (statuses as of 10/28/2023) Immunizations Name Administration Dates Next Due Pneumococcal [...] 11/06/2023 8:00 AM EST Office Visit Cardiology [address] [place] [address] Latanya Baron PA-C [address] [place] [address] 11/11/2023 8:00 AM EST Office Visit Nephrology, Tameka Arias [address] [facility] [address] [place] [address] Stacie Estevez MD [address] [place] [address] 01/28/2024 8:50 AM EDT Office Visit Family Medicine [address] [place] [phone] [place] [address] Scheduled Procedures Name Priority Associated Diagnoses Date/Ti [...] 5 YRS AGES 18-100 03/09/2024 03/09/2019, 03/09/2019 GFR 07/01/2024 07/01/2023, 12/08, 09/17/2022, Additional history exists Albumin/Creatinine Ratio 07/09/2024 023, 09/17/2022, 02/12/2022, Additional history exists Diabetic Eye Exam 08/20/2024 08/20/2023, , 09/25/2021, Additional history exists TSH 09/18/2024 09/18/2023, 07/11, 07/01/2023, Additional history exists DTaP,Tdap,and Td Vaccines [...] Procedure Name Priority Date/Time Associated Diagnosis Comments DIABETIC EYE EXAM Routine 08/20/2023 documented in this encounter Results * DIABETIC EYE EXAM (08/20/2023) 08/20/2023 Brendon Albert OD OTHER OUTSIDE LAB (SEE SCANNED REPORT) documented in this encounter Care Teams Forestry Extension Specialist Relationship Specialty Start Date End Date Pam Marshall DO [address] [place] [address] [place] [address] PCP - General Internal Medicine 03/06/22 documented as of this encounter
--- OUTSIDE RECORDS SUMMARY | 2024-01-12 03:48 | External Medical Summary | Summary of Care ---
Author Name Unknown Organization [facility] Address [address] [facility] [place] [address] Phone [phone] Care Team Providers Care Farm Equipment Maintenance Supervisor Name Role Phone Pam Marshall DO Primary Care Provider [phone] Reason for Visit * Reason Onset Date Comments Health Maintenance 10/22/2023 Encounter Details Date Type Department Care Team (Late st Contact Info) Description 10/22/2023 Telephone Family Medicine [address] [phone] Pam Marshall DO [address] [place] [address] [place] [phone] Health Maintenance Allergies Active Allergy Reactions Criticality Noted Date Comments Oxycodone-Acetaminophen Itching High 05/12/2018 documented as of this encounter (statuses as of 10/22/2023) Medications Medication Sig Dispensed Refills Start Date End Date Status Aspirin 81 MG Tablet Take 1 Tablet by mouth in the morning. 0 Active Cyanocobalamin (B-12) 1000 MCG TABS Take by mouth. 0 Active Cholecalciferol 50 MCG (2000 UT) Oral Capsule Take 1 Capsule by mouth in the morning. 0 Active Multiple Vitamins-Minerals (MULTIVITAMIN MEN 50+) TABS Take by mouth. 0 Active [place]-3 Fatty Acids (FISH OIL) 1200 MG CPDR [...] as of this encounter (statuses as of 10/22/2023) Active Problems Problem Noted Date Diagnosed Date [...] Advised 5 year follow up. Done in [place]. Records requested. Family history of prostate cancer in father 05/10 Gout 05/14/2018 Coronary artery disease invo lving [place] coronary artery of [place] heart without angina pectoris 05/14/2018 Overview: Sees Cardiology in [place] History of coronary artery stent placement 05/14 Overview: 2016 stent placed HTN, goal below 140/90 05/14/2018 Hyperlipidemia with target LDL less than 70 02/2018 Chronic GERD 05/14/2018 Mitral valve prolapse 05/14/2018 Fatty liver 05/12/2018 Liver lesion 05/12/2018 documented as of this encounter (statuses as of 10/22/2023) Resolved Problems Problem Noted Date Diagnosed Date Resolved Date DENNIS (acute kidney injury) 04/04/2021 Pancytopenia 01/28/2019 07/07/2019 Subclinical hypothyroidism 06/04/2018 1 Type 2 diabetes mellitus wit h hemoglobin A1c goal of less than 7.0% 05/14/2018 07/08/2023 documented as of this encounter (statuses as of 10/22/2023) Immunizations Name Administration Dates Next Due Pneumococcal [...] encounter Miscellaneous Notes * Telephone Encounter - Elvie Sharp FRITZ - 10/22/2023 10:30 AM EST Care Gaps Comprehensive Care Outreach Last Office/Telemedicine Visit: 07/08/2023 (in office), Visit date not found (telemedicine) Next Office Visit: 01/28/2024 Hemoglobin AIC Results: Lab Results Component Value Date/Time HEMOGLOBIN A1C - [facility] 6.8 (H) 07/01/2023 07:53 AM HEMOGLOBIN A1C - [facility] 6.9 (H) 12/27/2022 08:59 AM HEMOGLOBIN A1C - [facility] 7.9 (H) 03/06/2022 11:57 AM HEMOGLOBIN A1C - [facility] 7.6 (H) 04/14/2020 08:20 AM HEMOGLOBIN A1C - [facility] 6.7 (H) 07/06/2019 08:54 AM HEMOGLOBIN A1C - [facility] 6.4 (H) 11/20/2018 08:59 AM BP Readings from Last 1 Encounters: 07/08/23 162/90 Reviewed Health Maintenance below: Health Maintenance Topic Date Due Hepatitis B (1 of 3 - Risk 3-dose series) Never done Pneumococcal Vaccine: 65+ Years (2 - PCV) 08/13/2019 Influenza Vaccine (FLU shot) (1) Never done Diabetic Eye Exam 07/24/2023 HbA1c 12/31/2023 Diabetic Foot Exam 01/02/2024 Depression Screening 01/02/2024 Eye Cata eye? lab bp Care Gap Outreach Action Taken: Unable to reach and Targeted Instant Communicationshart message sent documented in this encounter Plan of Treatment Upcoming Encounters Date Type Department Care Team (Late st Contact Info) Description 11/06/2023 8:00 AM EST Office Visit Cardiology [address] [place] [address] Latanya Baron PA-C [address] [place] [address] 11/11/2023 8:00 AM EST Office Visit Nephrology, Tameka Arias [address] [facility] [place] [address] Stacie Estevez MD [address] [place] [address] 01/28/2024 8:50 AM EDT Office Visit Family Medicine [address] [place] [phone] [place] [address] Scheduled Procedures Name Priority Associated Diagnoses Date/Ti me COLONOSCOPY FLEXIBLE PROXIMA L DIAGNOSTIC Recall History of colon polyps Family history of colon cancer Health Maintenance Due Date Last Done Comments Hepatitis B (1 of 3 - Risk 3-dose series) 2016 Pneumococcal Vaccine: 65+ Years (2 - PCV) 08/13/2019 08/13/2018 Influenza Vaccine (FLU shot) (#1) 2023 Diabetic Eye Exam 07/24/2023 07/24/2022, , 09/05/2020, Additional history exists HbA1c 12/31/2023 07/01/2023, 04/09/2022, 03/06/2022, Additional history exists Depression Screening 01/02/2024 01/01/2023 Diabetic Foot Exam 01/02/2024 01/01/2023, 0 03/06/2022, 02/28/2021, Additional history exists COLONOSCOPY-EVERY 5 YRS AGES 18-100 03/09/2024 03/09/2019, 03/09/2019 GFR 07/01/2024 07/01/2023, 12/08, 09/17/2022, Additional history exists Albumin/Creatinine Ratio 07/09/2024 023, 09/17/2022, 02/12/2022, Additional history exists TSH 09/18/2024 09/18/2023, 07/11, [...] filedocumented as of this encounter Care Teams Farm Equipment Maintenance Supervisor Relationship Specialty Start Date End Date Pam Marshall DO [address] [place] [address] [place] [phone] PCP - General Internal Medicine 03/06/22 documented as of this encounter
--- OUTSIDE RECORDS SUMMARY | 2024-01-12 03:48 | External Medical Summary ---
Author Name Unknown Address Unknown Organization K01:[facility] - [facility] [address] [facility] [address] [facility] [address] Laboratory Report Ordering Provider Test Date Status ROGERSESPINOZA 11/07/2023 14:19:49 Final Normal: <30 mg/g creatinine< br/>High: 30-300 mg/g creatinine
Very High: >300 mg/g creatinine
Nephrotic: >2200 mg/g creatinine Observation Date Value Abnormality Reference (Units ) Status Albumin, Urine 11/07/2023 14:19:49 3.95 (mg/dL) Final Creatinine, Urine 11/07/2023 14:19:49 28 (mg/dL) Final Albumin/Creatinine [Mass Ratio] in Urine 11/07/2023 14:19:49 141 Above high normal <30 (mg/g Creat) Final Performing Location LAB[facility]ORY [facility] - [address] [facility] [address]
--- OUTSIDE RECORDS SUMMARY | 2024-01-12 03:48 | External Medical Summary | Summary of Care ---
Author Name Unknown Organization [facility] Address [address] [facility] [place] [address] Phone [phone] Care Team Providers Care Supervisor Dock Name Role Phone Rolando Pam Johnsone Primary Care Provider [phone] Reason for Visit * Reason Comments Follow Up Encounter Details Date Type Department Care Team (Late st Contact Info) Description 09/18/2023 7:00 AM EST Office Visit [facility] [address] [facility] [address] Erica Ruiz PA-C [address] [facility] [place] [address] Peripheral polyneuropathy*; Ulnar 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 0 Active Cyanocobalamin (B-12) 1000 MCG TABS Take by mouth. 0 Active Cholecalciferol 50 MCG (2000 UT) Oral Capsule Take 1 Capsule by mouth in the morning. 0 Active Multiple Vitamins-Minerals (MULTIVITAMIN MEN 50+) TABS Take by mouth. 0 Active Moncure-3 Fatty Acids (FISH OIL) 1200 MG CPDR Take by mouth. 0 Active Triamcinolone Acetonide 0.5 % External CreamIndications:Pso riasis APPLY TO AFFECTED AREA TWICE A DAY 30 g 11 05/03/2021 Active Pina Carlin 33GIndications:Type 2 diabetes mellitus with hemoglobin A1c goal [...] EVENING) 100 Tablet 3 11/21/2022 12/17/2023 Active amLODIPine Besy-Benazepril HCl 10-40 MG Oral Capsule (Lotrel)Indications: HTN, goal below 140/90 TAKE ONE CAPSULE BY MOUTH EVERY MORNING 100 Capsule 3 08/23/2022 10/07/2023 Active glipiZIDE ER 5 MG Oral Tablet Extended Release 24 Hour (Glucotrol XL) TAKE ONE TABLET BY MOUTH EVERY MORNING -- 30 MINUTES BEFORE A MEAL 100 Tablet 3 08/23/2022 10/07/2023 Active Allopurinol 300 MG Oral Tablet (Zyloprim)Indication s: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 TAKE ONE TABLET BY MOUTH EVERY MORNING 100 Tablet 3 08/23/2022 10/07/2023 Active Lansoprazole 30 MG Oral Capsule Delayed Release (Prevacid) TAKE ONE CAPSULE BY MOUTH EVERY MORNING 100 Capsule 3 08/23/2022 10/07/2023 Active Nortriptyline HCl 10 MG Oral Capsule (Pamelor) TAKE TWO CAPSULES BY MOUTH EVERY DAY AT BEDTIME 200 Capsule 3 08/23/2022 10/07/2023 Active Spironolactone 25 MG Oral Tablet (Aldactone)Indicatio ns:HTN, goal below 140/90 TAKE ONE TABLET BY MOUTH EVERY MORNING 100 Tablet 3 08/23/2022 10/07/2023 Active metFORMIN HCl 1000 MG Oral Tablet (Glucophage)Indicati ons:Type 2 diabetes mellitus with hemoglobin A1c goal of less than 7.0% (HCC) TAKE ONE TABLET BY MOUTH TWICE A DAY -- IN THE MORNING AND BEFORE BEDTIME 200 Tablet 3 08/23/2022 10/07/2023 Active Atorvastatin Calcium 40 MG Oral Tablet (Lipitor)Indications :Hyperlipidemia with target LDL less than 70 TAKE ONE TABLET BY MOUTH EVERY DAY 100 Tablet 3 08/23/2022 10/07/2023 Active Levothyroxine Sodium 100 MCG Oral Tablet (Levoxyl)Indications :Acquired hypothyroidism Take 1 Tablet by mouth in the morning. (at least 30 min prior to breakfast or other meds). 100 Tablet 1 07/08/2023 Active documented as of this encounter (statuses as of 09/18/2023) Active Problems Problem Noted Date Diagnosed Date [...] Gout 05/14/2018 Coronary artery disease invo lving [place] coronary artery of [place] heart without angina pectoris 05/14/2018 Overview: Sees Cardiology in [place] History of coronary artery stent placement 05/14 Overview: 2016 stent placed HTN, goal below 140/90 05/14/2018 Hyperlipidemia with target LDL less than 70 02/2018 Chronic GERD 05/14/2018 Mitral valve prolapse 05/14/2018 Fatty liver 05/12/2018 Liver lesion 05/12/2018 documented as of this encounter (statuses as of 09/18/2023) Resolved Problems Problem Noted Date Diagnosed Date Resolved Date DENNIS (acute kidney injury) 04/04/2021 Pancytopenia 01/28/2019 07/07/2019 Subclinical hypothyroidism 06/04/2018 1 Type 2 diabetes mellitus wit h hemoglobin A1c goal of less than 7.0% 05/14/2018 07/08/2023 documented as of this encounter (statuses as of 09/18/2023) Immunizations Name Administration Dates Next Due Pneumococcal [...] on file documented as of this encounter Progress Notes * Erica Ruiz PA-C - 09/18/2023 7:00 AM EST HISTORY & PHYSICAL EXAMINATION - NEUROLOGY Name: Magan Lakhani Date: 09/17/2023 Time: 10:12 AM Chief Complaint Patient presents with Follow Up SUBJECTIVE: Magan Lakhani is a 68 year old man who presents today for follow- up of peripheral polyneuropathy, likely related to diabetes and history of ETOH use. He was last seen 01/16/23. At that time had new bilateral tingling of UE from elbows into 4th and 5th digits suggestive of ulnar neuropathy at the elbow. - EMG 08/08/23: mild to moderate demyelinating right ulnar motor mononeuropathy at the level of theelbow; No evidence of left median or ulnar mononeuropathy Today states he has mild right arm numbness overnight. Does not notice daytime symptoms. No UE weakness, decreased administration professional strength. Minimal LE symptoms. Nortriptyline appears to be effective. HPI EMG 07/10: 1. 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 2. Superimposed mild left median neuropathy at the wrist (carpal tunnel syndrome). 3. Suggestive of a chronic left L4 radiculopathy with no active denervation. B/l foot pain and numbness started 7-8 years ago No history of chemotherapy or cancer. No history of smoking. No family history of neuropathy. 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 Cyanocobalamin (B-12) 1000 MCG TABS Take by mouth. Cholecalciferol 50 MCG (2000 UT) Oral Capsule Take 1 Capsule by mouth in the morning. Multiple Vitamins-Minerals (MULTIVITAMIN MEN 50+) TABS Take by mouth. Moncure-3 Fatty Acids (FISH OIL) 1200 MG CPDR [...] TABLET IN THE EVENING) 100 Tablet 3 amLODIPine Besy-Benazepril HCl 10-40 MG Oral Capsule (Lotrel) TAKE ONE CAPSULE BY MOUTH EVERY MORNING 100 Capsule 3 glipiZIDE ER 5 MG Oral Tablet Extended Release 24 Hour (Glucotrol XL) TAKE ONE TABLET BY MOUTH EVERY MORNING -- 30 MINUTES BEFORE A MEAL 100 Tablet 3 Allopurinol 300 MG Oral Tablet (Zyloprim) TAKE ONE TABLET BY MOUTH EVERY MORNING 100 Tablet 3 Lansoprazole 30 MG Oral Capsule Delayed Release (Prevacid) TAKE ONE CAPSULE BY MOUTH EVERY MORNING 100 Capsule 3 Nortriptyline HCl 10 MG Oral Capsule (Pamelor) TAKE TWO CAPSULES BY MOUTH EVERY DAY AT BEDTIME 200 Capsule 3 Spironolactone 25 MG Oral Tablet (Aldactone) TAKE ONE TABLET BY MOUTH EVERY MORNING 100 Tablet 3 metFORMIN HCl 1000 MG Oral Tablet (Glucophage) TAKE ONE TABLET BY MOUTH TWICE A DAY -- IN THE MORNING AND BEFORE BEDTIME 200 Tablet 3 Atorvastatin Calcium 40 MG Oral Tablet (Lipitor) TAKE ONE TABLET BY MOUTH EVERY DAY 100 Tablet 3 Levothyroxine Sodium 100 MCG Oral Tablet (Levoxyl) Take 1 Tablet by mouth in the morning. (at least30 min prior to breakfast or other meds). 100 Tablet 1 No current facility-administered medications for this visit. Family History: Family History Problem Relation Age of Onset Heart attack Mother 86 Stroke Mother Colon cancer Father 55 Other (Other) Father Other (Heart disease (congenital)) Sister 21 Other (Lung cancer (nonsmoker)) Brother 53 SOCIAL HISTORY: Social History Tobacco Use Smoking status: Never Smokeless tobacco: Former Vaping Use Vaping Use: Never used Substance Use Topics Alcohol use: Yes Comment: couple drinks a day Drug use: No REVIEW OF SYSTEMS: As above OBJECTIVE: Physical Examination: There were no vitals taken for this visit. General appearance: healthy, alert, no distress Physical Exam: Constitutional: Appearance normally developed,well nourished,no deformities,well groomed Head and face: normocephalic,atraumatic Respiratory: normal effort,clear to auscultation Cardiovascular: normal heart sounds and regular rhythm Psychiatric: normal judgement and insight,normal mood,normal affect NEUROLOGIC EXAMINATION: Mental Status Exam: alert,oriented to time, place, person,normal recent memory,normal remote memory,normal attention span,normal concentration,normal language,normal fund of knowledge Cranial Nerves: CN 3, 4, 6 - Extra-ocular Movements Intact,no nystagmus CN 5 - Facial sensation intact and equal bilaterally CN 7 - no facial assymetry CN 8 - hearing grossly intact Muscle exam: Arm Right Left Deltoid 5/5 5/5 Biceps 5/5 5/5 Triceps 5/5 5/5 Reflexes: Biceps BR Patellar Achilles Right 2+ 2+ 2+ 2+ Left 2+ 2+ 2+ 2+ Sensation: Left LE ankle level to vibration. Bilateral intact light touch and temp. LABORATORY: Results for orders placed or performed in visit on 07/01/23 CBC Result Value Ref Range WBC 4.97 4.00 - 10.80 K/uL RBC 3.13 4.50 - 5.25 M/uL HGB 9.9 (L) 14.0 - 16.8 g/dL HCT 30.8 (L) 40.0 - 48.4 % MCV 98.4 82.0 - 99.5 fL MCH 31.6 27.0 - 34.0 pg MCHC 32.1 32.0 - 36.0 g/dL RDW 13.3 11.5 - 15.5 % PLT 199 140 - 400 K/uL MPV 11.7 6.6 - 11.1 fL nRBCs 0 <=0 /100 WBCs Results for orders placed or performed in visit on 07/01/23 BASIC METABOLIC PANEL Result Value Ref Range BUN 26 (H) 6 - 20 mg/dL Creatinine 1.2 0.6 - 1.2 mg/dL Estimated Glomerular Filtration Rate 64 >=60 mL/min Sodium 135 135 - 146 mmol/L Potassium 5.4 (H) 3.5 - 5.1 mmol/L Chloride 99 98 - 107 mmol/L CO2 23 22 - 32 mmol/L Anion Gap 13 7 - 15 mmol/L Glucose 144 (H) 70 - 120 mg/dL Calcium 9.5 8.4 - 10.2 mg/dL Results for orders placed or performed in visit on 01/14/19 LIPID PANEL Result Value Ref Range HOURS FASTING NOT FASTING hours Triglycerides 109 <200 mg/dL Cholesterol 113 <200 mg/dL HDL Cholesterol 60 >39 mg/dL Cholesterol-HDL Ratio 1.9 LDL Cholesterol 31 0 - 129 mg/dL Results for orders placed or performed in visit on 12/27/22 LIPID PANEL WITH DIRECT LDL IF TG IS HIGH Result Value Ref Range Triglycerides 165 <=174 mg/dL Cholesterol 145 <200 mg/dL HDL Cholesterol 50 >39 mg/dL Non-HDL Cholesterol 95 <=159 mg/dL Lab Results Component Value Date/Time HEMOGLOBIN A1C - [facility] 6.8 (H) 07/01/2023 07:53 AM HEMOGLOBIN A1C - [facility] 6.9 (H) 12/27/2022 08:59 AM HEMOGLOBIN A1C - [facility] 7.9 (H) 03/06/2022 11:57 AM HEMOGLOBIN A1C - [facility] 7.6 (H) 04/14/2020 08:20 AM HEMOGLOBIN A1C - [facility] 6.7 (H) 07/06/2019 08:54 AM HEMOGLOBIN A1C - [facility] 6.4 (H) 11/20/2018 08:59 AM Lab Results Component Value Date/Time TSH - [facility] 5.96 (H) 08/07/2023 07:29 AM TSH - [facility] 10.50 (H) 07/01/2023 07:53 AM TSH - [facility] 4.86 (H) 05/15/2022 01:42 PM TSH - [facility] 4.08 04/14/2020 08:20 AM TSH - [facility] 6.62 (H) 07/06/2019 08:54 AM TSH - [facility] 2.36 01/27/2019 10:26 AM TSH - [facility]IDE LAB 3.240 11/27/2019 12:00 AM BART TYREE SCREEN Date Value Ref Range Status 05/12/2018 NEGATIVE Final BART Antibody Screen, TYREE Date Value Ref Range Status 05/10/2021 Negative Negative Final Results for orders placed or performed in visit on 07/01/23 VITAMIN B12 Result Value Ref Range Vitamin B12 1,673 (H) 232 - 1,245 pg/mL Results for orders placed or performed in visit on 07/08/23 FOLIC ACID Result Value Ref Range Folic Acid >20.0 >4.5 ng/mL No results found for: "[id number]" No results found for: "[id number]" No results found for: "[id number]" 25-Hydroxy Vitamin D (ng/mL) Date Value 03/06/2022 38 Vitamin D Level Interpretation deficient: <20 ng/ml insufficient: 20-30 ng/ml normal: 31-100 ng/ml Review of prior Studies: ASSESSMENT/PLAN: Magan Lakhani is a 68 year old male with diabetic/ETOH related polyneuropathy, and bilateral ulnar neuropathy at the elbow, R > L. Reviewed EMG with patient. Avoid leaning on elbows. Could wrap a towel around elbow at night to prevent flexion. If he develops administration professional weakness, pain, or muscle wasting should be referred to Ortho for consideration of surgery. Continue nortriptyline. Follow up in 12 months or sooner if needed. I spent a total of 20 minutes on the date of service inpreparation, delivery, and documentation of the care provided to Magan Lakhani. Xi Spence MD available for direct consultation. Erica Ruiz PA-C, Neurology [facility] [address] [place] [address] 09/18/23 7:32 AM documented in this encounter Plan of Treatment Upcoming Encounters Date Type Department Care Team (Late st Contact Info) Description 11/11/2023 8:00 AM EST Office Visit Nephrology, [facility] [address] [place] [address] Stacie Estevez MD 200 [facility] [place] [address] 11/13/2023 8:30 AM EST Office Visit Cardiology [address] [place] [address] Latanya Baron PA-C [address] [place] [address] 01/28/2024 8:50 AM EDT Office Visit Family Medicine [address] [place] [phone] Pam Marshall[address] [place] [address] Scheduled Procedures Name Priority Associated Diagnoses Date/Ti [...] 09/05/2020, Additional history exists HbA1c 12/31/2023 07/01/2023, 12/08, 03/06/2022, Additional history exists Depression Screening 01/02/2024 01/01/2023 Diabetic Foot Exam 01/02/2024 01/01/2023, 0 03/06/2022, 02/28/2021, Additional history exists COLONOSCOPY-EVERY 5 YRS AGES 18-100 03/09/2024 03/09/2019, 03/09/2019 GFR 07/01/2024 07/01/2023, 12/08, 09/17/2022, Additional history exists Albumin/Creatinine Ratio 07/09/2024 023, 09/17/2022, 02/12/2022, Additional history exists TSH 08/07/2024 08/07/2023, 06/09, 05/15/2022, Additional history exists DTaP,Tdap,and Td Vaccines (2 [...] as of this encounter Visit Diagnoses Diagnosis Peripheral polyneuropathy- Primary Unspecified hereditary and idiopathic peripheral neuropathy Ulnar neuropathy at elbow of right upper extremity documented in this encounter Care Teams Supervisor Dock Relationship Specialty Start Date End Date Pam Marshall DO [address] [place] [address] [place] [address] PCP - General Internal Medicine 03/06/22 documented as of this encounter
--- OUTSIDE RECORDS SUMMARY | 2024-01-12 03:48 | External Medical Summary ---
Author Name Unknown Address Unknown Organization K01:[facility] [place] [address] [place] [address] Laboratory Report Ordering Provider Test Date Status DURAN GARCIA 11/07/2023 14:19:49 Final Observation Date Value Abnormality Reference (Units ) Status MYCODE SPECIMEN-SST 11/07/2023 14:19:49 Freezing of extracted DNA, whole blood and/or serum. Final Performing Location [facility] [place] [address] [facility] [address]
--- OUTSIDE RECORDS SUMMARY | 2024-01-12 03:48 | External Medical Summary | Summary of Care ---
Author Name Unknown Organization [facility] Address [address] [facility] [place] [address] Phone [phone] Care Team Providers Care Apple Packing Header Name Role Phone Marshall, Pamjulia Choudhury Primary Care Provider [phone] Reason for Visit * Reason Comments Outpatient Testing Encounter Details Date Type Department Care Team (Late st Contact Info) Description 08/07/2023 7:30 AM EST Laboratory Laboratory [address] [place] [phone] [address] [place] [address] Arrived Allergies Active Allergy Reactions Criticality Noted Date Comments Oxycodone-Acetaminophen Itching High 05/12/2018 documented as of this encounter (statuses as of 08/07/2023) Medications Medication Sig Dispensed Refills Start Date End Date Status Aspirin 81 MG Tablet Take 1 Tablet by mouth in the morning. 0 Active Cyanocobalamin (B-12) 1000 MCG TABS Take by mouth. 0 Active Cholecalciferol 50 MCG (2000 UT) Oral Capsule Take 1 Capsule by mouth in the morning. 0 Active Multiple Vitamins-Minerals (MULTIVITAMIN MEN 50+) TABS Take by mouth. 0 Active [place]-3 Fatty Acids (FISH OIL) 1200 MG CPDR Take by mouth. 0 Active Triamcinolone Acetonide 0.5 % External CreamIndications:Pso riasis APPLY TO AFFECTED AREA TWICE A DAY 30 g 11 05/03/2021 Active OneTouch Delica Lancets 33GIndications:Type 2 diabetes mellitus with hemoglobin A1c [...] IN THE MORNING) 100 Tablet 3 11/21/2022 11/21/2023 Active Metoprolol Succinate ER 50 MG Oral Tablet Extended Release 24 Hour (toPROL XL) TAKE ONE TABLET BY MOUTH EVERY MORNING (IN ADDDITION TO 100 MG TABLET IN THE EVENING) 100 Tablet 3 11/21/2022 11/21/2023 Active Glucose Blood In Vitro StripIndications:Typ e 2 diabetes mellitus with hemoglobin A1c goal of less than 7.0% (HCC) TEST BLOOD SUGAR FOUR TIMES A DAY 400 Strip 3 09/11/2022 09/11/2023 Active [employer] Games Ultra 2 w/Device KitIndications:Type 2 diabetes mellitus with hemoglobin A1c goal of less than 7.0% (HCC) TEST BLOOD SUGAR FOUR TIMES A DAY 1 Each 0 09/11/2022 09/11/2023 Active PlannifyTouch Delica Plus [id number] TEST BLOOD SUGAR FOUR TIMES A DAY 400 Each 3 09/11/2022 09/11/2023 Active amLODIPine Besy-Benazepril HCl 10-40 MG Oral [...] as of this encounter (statuses as of 08/07/2023) Active Problems Problem Noted Date Diagnosed Date [...] Advised 5 year follow up. Done in [place]. Records requested. Family history of prostate cancer in father 05/10 Gout 05/14/2018 Coronary artery disease invo lving [place] coronary artery of [place] heart without angina pectoris 05/14/2018 Overview: Sees Cardiology in [place] History of coronary artery stent placement 05/14 Overview: 2016 stent placed HTN, goal below 140/90 05/14/2018 Hyperlipidemia with target LDL less than 70 02/2018 Chronic GERD 05/14/2018 Mitral valve prolapse 05/14/2018 Fatty liver 05/12/2018 Liver lesion 05/12/2018 documented as of this encounter (statuses as of 08/07/2023) Resolved Problems Problem Noted Date Diagnosed Date Resolved Date DENNIS (acute kidney injury) 04/04/2021 Pancytopenia 01/28/2019 07/07/2019 Subclinical hypothyroidism 06/04/2018 1 Type 2 diabetes mellitus wit h hemoglobin A1c goal of less than 7.0% 05/14/2018 07/08/2023 documented as of this encounter (statuses as of 08/07/2023) Immunizations Name Administration Dates Next Due Pneumococcal [...] Care Team (Late st Contact Info) Description 08/08/2023 8:45 AM EST NeuroDiagnostic Study Neurophysiology [facility] [place] [address] [place] [address] Sathish Goode MD [address] [place] [address] 09/18/2023 7:00 AM EST Office Visit Neurology [facility] [place] [address] [place] [address] Erica Ruiz PA-C [address] [place] [address] 11/11/2023 8:00 AM EST Office Visit Nephrology, [facility] [address] [facility] [place] [address] Stacie Estevez MD [address] [place] [address] 11/13/2023 8:30 AM EST Office Visit Cardiology [address] [place] [address] Latanya Baron PA-C [address] [place] [address] 01/28/2024 8:50 AM EDT Office Visit Family Medicine [address] [place] [phone] Pam Marshall[address] [place] [address] Scheduled Procedures Name Priority Associated Diagnoses Date/Ti [...] 07/01/2024 07/01/2023, 12/08, 09/17/2022, Additional history exists TSH 07/01/2024 07/01/2023, 09/0 03/2022, 03/06/2022, Additional history exists Albumin/Creatinine Ratio 07/09/2024 023, 09/17/2022, 02/12/2022, Additional history exists DTaP,Tdap,and Td Vaccines (2 [...] filedocumented as of this encounter Care Teams Apple Packing Header Relationship Specialty Start Date End Date Pam Marshall DO [address] [place] [address] [place] [phone] PCP - General Internal Medicine 03/06/22 documented as of this encounter
--- OUTSIDE RECORDS SUMMARY | 2024-01-12 03:48 | External Medical Summary | Summary of Care ---
Author Name Unknown Organization [facility] Address [address] [facility] [place] [address] Phone [phone] Care Team Providers Care Aoc Director Combat Plans Officer Name Role Phone Marshall, Pam Choudhury Primary Care Provider + [phone] Reason for Visit * Reason Comments Outpatient Testing Encounter Details Date Type Department Care Team (Late st Contact Info) Description 11/07/2023 2:30 PM EST Laboratory Laboratory [address] [place] [phone] [place] [address] [employer] Other*[id number]; HTN, goal below 140/90; Hyperlipidemia with target LDL less than 70; Chest pain, unspecified type; Coronary artery disease involving [place] coronary artery of [place] heart with other form of angina pectoris (HCC); Persistent proteinuria; Acquired hypothyroidism Allergies Active Allergy Reactions Criticality Noted Date Comments Oxycodone-Acetaminophen Itching High 05/12/2018 documented as of this encounter (statuses as of 11/07/2023) Medications Medication Sig Dispensed Refills Start Date End Date Status Aspirin 81 MG Tablet Take 1 Tablet by mouth in the morning. 0 Active Cyanocobalamin (B-12) 1000 MCG TABS Take by mouth. 0 Active Cholecalciferol 50 MCG (2000 UT) Oral Capsule Take 1 Capsule by mouth in the morning. 0 Active Multiple Vitamins-Minerals (MULTIVITAMIN MEN 50+) TABS Take by mouth. 0 Active [place]-3 Fatty Acids (FISH OIL) 1200 MG CPDR Take by mouth. 0 Active Triamcinolone Acetonide 0.5 % External CreamIndications:P soriasis APPLY TO AFFECTED AREA TWICE A DAY 30 g 11 05/03/2021 Active RoddyCamedn Delariane Lancets 33GIndications:Typ e 2 diabetes mellitus with hemoglobin A1c goal of less than 7.0% ([facility]) Test blood sugar 4 times [...] hemoglobin A1c goal of less than 7.0% ([facility]) TAKE ONE TABLET BY MOUTH [...] EVERY DAY 100 Tablet 1 09/30/2023 Active Iron (Ferrous Sulfate) 325 (65 Fe) MG Oral Tablet 1 tablet daily 0 11/06/2023 Ac tive documented as of this encounter (statuses as of 11/07/2023) Active Problems Problem Noted Date Diagnosed Date [...] Gout 05/14/2018 Coronary artery disease invo lving [place] coronary artery of [place] heart without angina pectoris 05/14/2018 Overview: Sees Cardiology in [place] History of coronary artery stent placement 05/14 Overview: 2016 stent placed HTN, goal below 140/90 05/14/2018 Hyperlipidemia with target LDL less than 70 02/2018 Chronic GERD 05/14/2018 Mitral valve prolapse 05/14/2018 Fatty liver 05/12/2018 Liver lesion 05/12/2018 documented as of this encounter (statuses as of 11/07/2023) Resolved Problems Problem Noted Date Diagnosed Date Resolved Date DENNIS (acute kidney injury) 04/04/2021 Pancytopenia 01/28/2019 07/07/2019 Subclinical hypothyroidism 06/04/2018 1 Type 2 diabetes mellitus wit h hemoglobin A1c goal of less than 7.0% 05/14/2018 07/08/2023 documented as of this encounter (statuses as of 11/07/2023) Immunizations Name Administration Dates Next Due Pneumococcal [...] 11/11/2023 8:00 AM EST Office Visit Nephrology, [facility] [address] [facility] [place] [address] Stacie Estevez MD [address] [facility] [place] [address] 01/28/2024 8:50 AM EDT Office Visit Family Medicine [address] [place] [phone] Pam [address] [place] [address] 01/29/2024 11:00 AM EDT Imaging Cardiac Studies, [facility] [address] [facility] [place] [address] Pending Results Name Type Priority Associated Diagnoses Date /Time MYCODE SUBSEQUENT ADULT Lab Routine MyCode Research Other*[id number] 11/07/2023 2:19 PM EST LIPID PANEL WITH DIRECT LDL IF TG IS HIGH Lab Routine HTN, goal below 140/90 Hyperlipidemia with target LDL less than 70 Chest pain, unspecified type Coronary artery disease involving [place] coronary artery of [place] heart with other form of angina pectoris (HCC) 11/07/2023 2:19 PM EST BASIC METABOLIC PANEL Lab Routine Persistent proteinuria HTN, goal below 140/90 11/07/2023 2:19 PM EST URINALYSIS WITH MICROSCOPIC EXAM Lab Routine Persistent proteinuria HTN, goal below 140/90 11/07/2023 2:19 PM EST ALBUMIN / CREATININE RATIO, URINE Lab Routine Persistent proteinuria HTN, goal below 140/90 11/07/2023 2:19 PM EST TSH Lab Routine Acquired hypothyroidism 11/07/2023 2:19 PM EST MYCODE SST1 Lab Routine [employer] Other*[id number] 11/07/2023 2:19 PM EST MYCODE SST2 Lab Routine [employer] Other*[id number] 11/07/2023 2:19 PM EST Scheduled Procedures Name Priority Associated Diagnoses Date/Ti me COLONOSCOPY FLEXIBLE PROXIMA L DIAGNOSTIC Recall History of colon polyps Family history of colon cancer Health Maintenance Due Date Last Done Comments Pneumococcal Vaccine: 65+ Years (2 of 2 - PCV) 08/13/2019 08/13/2018 Influenza Vaccine (FLU shot) (#1) 2023 HbA1c 12/31/2023 07/01/2023, 042 09/2022, 03/06/2022, Additional history exists Depression Screening 01/02/2024 01/01/2023 Diabetic Foot Exam 01/02/2024 01/01/2023, 0 03/06/2022, 02/28/2021, Additional history exists COLONOSCOPY-EVERY 5 YRS AGES 18-100 03/09/2024 03/09/2019, 03/09/2019 GFR 07/01/2024 07/01/2023, 04/2 09/2022, 09/17/2022, Additional history exists Albumin/Creatinine Ratio 07/09/2024 [...] this encounter Visit Diagnoses Diagnosis [employer] Other*[id number] HTN, goal below 140/90 Unspecified essential hypertension Hyperlipidemia with target LDL less than 70 Other and unspecified hyperlipidemia Chest pain, unspecified type Coronary artery disease involving [place] coronary artery of [place] heart with other form of angina pectoris (HCC) Persistent proteinuria Proteinuria Acquired hypothyroidism Unspecified hypothyroidism documented in this encounter Care Teams Aoc Director Combat Plans Officer Relationship Specialty Start Date End Date Pam Marshall DO [address] [place] [address] [place] [address] PCP - General Internal Medicine 03/06/22 documented as of this encounter
--- OUTSIDE RECORDS SUMMARY | 2024-01-12 03:48 | External Medical Summary ---
Author Name Unknown Address Unknown Organization K01:LABORATORY [facility] - [address] [facility] [address] [facility] [address] Laboratory Report Ordering Provider Test Date Status ANJEL GIL 08/07/2023 07:29:10 Final Observation Date Value Abnormality Reference (Units ) Status TSH 08/07/2023 07:29:10 5.96 Above high normal 0. 27-4.20 (uIU/mL) Final Performing Location LABORATORY C - [address] [facility] [address]
--- OUTSIDE RECORDS SUMMARY | 2024-01-12 03:48 | External Medical Summary | Summary of Care ---
Author Name Unknown Organization [facility] Address [address] [facility] [place] [address] Phone [phone] Care Team Providers Care Heavy Lift Rigger Name Role Phone Marshall, Pamjulia Choudhury Primary Care Provider [phone] Reason for Visit * Reason Comments EMG Encounter Details Date Type Department Care Team (Late st Contact Info) Description 08/08/2023 8:45 AM EST NeuroDiagnostic Study Neurophysiology [facility] [address] [facility] [place] [address] Sathish Goode MD [address] [facility] [place] [address] Arrived Allergies Active Allergy Reactions Criticality Noted Date Comments Oxycodone-Acetaminophen Itching High 05/12/2018 documented as of this encounter (statuses as of 08/08/2023) Medications Medication Sig Dispensed Refills Start Date End Date Status Aspirin 81 MG Tablet Take 1 Tablet by mouth in the morning. 0 Active Cyanocobalamin (B-12) 1000 MCG TABS Take by mouth. 0 Active Cholecalciferol 50 MCG (2000 UT) Oral Capsule Take 1 Capsule by mouth in the morning. 0 Active Multiple Vitamins-Minerals (MULTIVITAMIN MEN 50+) TABS Take by mouth. 0 Active [place]-3 Fatty Acids (FISH OIL) 1200 MG CPDR [...] DAY 400 Strip 3 09/11/2022 09/11/2023 Active [employer] Ultra 2 w/Device KitIndications:Type 2 diabetes mellitus with hemoglobin A1c goal of less than 7.0% (HCC) TEST BLOOD SUGAR FOUR TIMES A DAY 1 Each 0 09/11/2022 09/11/2023 Active [employer] Delica Plus [id number] TEST BLOOD SUGAR FOUR TIMES A DAY [...] as of this encounter (statuses as of 08/08/2023) Active Problems Problem Noted Date Diagnosed Date [...] Gout 05/14/2018 Coronary artery disease invo lving [place] coronary artery of [place] heart without angina pectoris 05/14/2018 Overview: Sees Cardiology in [place] History of coronary artery stent placement 05/14 Overview: 2016 stent placed HTN, goal below 140/90 05/14/2018 Hyperlipidemia with target LDL less than 70 02/2018 Chronic GERD 05/14/2018 Mitral valve prolapse 05/14/2018 Fatty liver 05/12/2018 Liver lesion 05/12/2018 documented as of this encounter (statuses as of 08/08/2023) Resolved Problems Problem Noted Date Diagnosed Date Resolved Date DENNIS (acute kidney injury) 04/04/2021 Pancytopenia 01/28/2019 07/07/2019 Subclinical hypothyroidism 06/04/2018 1 Type 2 diabetes mellitus wit h hemoglobin A1c goal of less than 7.0% 05/14/2018 07/08/2023 documented as of this encounter (statuses as of 08/08/2023) Immunizations Name Administration Dates Next Due Pneumococcal [...] as of this encounter Progress Notes * Sathish Goode MD - 08/08/2023 9:43 AM EST Study is done to evaluate intermittent right much greater than left nocturnal paresthesias involving the 4th and 5th fingers and shows evidence for 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 manifested by slight slowing of conduction velocity across that segment and a somewhat attenuated ulnar F-wave All other components of the bilateral upper extremity nerve conduction study are normal including right median, left median left ulnar, and right radial sensory studies Needle EMG was confined to the most symptomatic right upper extremity and is normal revealing no evidence for neurogenic changes in any of the tested right C5 through T1 innervated muscles oriented ulnar innervated muscles above and below the wrist Sathish Goode MD documented in this encounter Plan of Treatment Upcoming Encounters Date Type Department Care Team (Late st Contact Info) Description 09/18/2023 7:00 AM EST Office Visit Neurology [facility] [place] [address] [place] [address] Erica Ruiz PA-C [address] [place] [address] 11/11/2023 8:00 AM EST Office Visit Nephrology, [facility] [address] [place] [address] Stacie Estevez MD [address] [place] [address] 11/13/2023 8:30 AM EST Office Visit Cardiology [address] [place] [address] Latanya Baron PA-C [address] [place] [address] 01/28/2024 8:50 AM EDT Office Visit Family Medicine [address] [place] [phone] Pam Marshall[address] [place] [address] Scheduled Procedures Name Priority Associated Diagnoses Date/Ti [...] as of this encounter Visit Diagnoses Diagnosis Numbness and tingling in both hands- Primary documented in this encounter Care Teams Heavy Lift Rigger Relationship Specialty Start Date End Date Pam Marshall DO [address] [place] [address] [place] [address] PCP - General Internal Medicine 03/06/22 documented as of this encounter
--- OUTSIDE RECORDS SUMMARY | 2024-01-12 03:48 | External Medical Summary | Summary of Care ---
Author Name Unknown Organization [facility] Address [address] [facility] [place] [address] Phone [phone] Care Team Providers Care Winding Operator Name Role Phone Pam Marshall DO Primary Care Provider Reason for Visit * Reason Onset Date Comments Health Maintenance 10/22/2023 Encounter Details Date Type Department Care Team (Late st Contact Info) Description 10/22/2023 Telephone Family Medicine [address] [phone] Pam Marshall DO [address] [place] [address] [place] [phone] Health Maintenance Allergies Active Allergy Reactions Criticality Noted Date Comments Oxycodone-Acetaminophen Itching High 05/12/2018 documented as of this encounter (statuses as of 10/23/2023) Medications Medication Sig Dispensed Refills Start Date End Date Status Aspirin 81 MG Tablet Take 1 Tablet by mouth in the morning. 0 Active Cyanocobalamin (B-12) 1000 MCG TABS Take by mouth. 0 Active Cholecalciferol 50 MCG (2000 UT) Oral Capsule Take 1 Capsule by mouth in the morning. 0 Active Multiple Vitamins-Minerals (MULTIVITAMIN MEN 50+) TABS Take by mouth. 0 Active [place]-3 Fatty Acids (FISH OIL) 1200 MG CPDR [...] as of this encounter (statuses as of 10/23/2023) Active Problems Problem Noted Date Diagnosed Date [...] 05/14/2018 Coronary artery disease invo lving [place] coronary artery of [place] heart without angina pectoris 05/14/2018 Overview: Sees Cardiology in [place] History of coronary artery stent placement 05/14 Overview: 2016 stent placed HTN, goal below 140/90 05/14/2018 Hyperlipidemia with target LDL less than 70 02/2018 Chronic GERD 05/14/2018 Mitral valve prolapse 05/14/2018 Fatty liver 05/12/2018 Liver lesion 05/12/2018 documented as of this encounter (statuses as of 10/23/2023) Resolved Problems Problem Noted Date Diagnosed Date Resolved Date DENNIS (acute kidney injury) 04/04/2021 Pancytopenia 01/28/2019 07/07/2019 Subclinical hypothyroidism 06/04/2018 1 Type 2 diabetes mellitus wit h hemoglobin A1c goal of less than 7.0% 05/14/2018 07/08/2023 documented as of this encounter (statuses as of 10/23/2023) Immunizations Name Administration Dates Next Due Pneumococcal [...] Outreach Action Taken: Unable to reach and Financial Transaction Services[employer] message sent documented in this encounter Plan of Treatment Upcoming Encounters Date Type Department Care Team (Late st Contact Info) Description 11/06/2023 8:00 AM EST Office Visit Cardiology [address] [place] [address] Latanya Baron PA-C [address] [place] [address] 11/11/2023 8:00 AM EST Office Visit Nephrology, [facility] Arias 200 [facility] [place] [address] Stacie Estevez MD [address] [place] [address] 01/28/2024 8:50 AM EDT Office Visit Family Medicine [address] [place] [phone] [address] Marshall[address] [place] [address] Scheduled Procedures Name Priority Associated Diagnoses Date/Ti [...] filedocumented as of this encounter Care Teams Winding Operator Relationship Specialty Start Date End Date Pam Marshall DO [address] [place] [address] [place] [phone] PCP - General Internal Medicine 03/06/22 documented as of this encounter
--- OUTSIDE RECORDS SUMMARY | 2024-01-12 03:48 | External Medical Summary ---
Author Name Unknown Address Unknown Organization K01:LABORATORY [facility] - [address] [facility] [address] [facility] [address] Laboratory Report Ordering Provider Test Date Status ROGERSESPINOZA 11/07/2023 14:19:49 Final Observation Date Value Abnormality Reference (Units ) Status BUN 11/07/2023 14:19:49 30 Above high normal 6-20 (mg/dL) Final Creatinine 11/07/2023 14:19:49 1.1 0.6-1.2 (mg/dL) Final Glomerular filtration rate/1.73 sq M.predicted [Volume Rate/Area] in Serum, Plasma or Blood by Creatinine-based formula (CKD-EPI) 11/07/2023 14:19:49 73 >=60 (mL/min) Final eGFR is calculated based on the CKD-EPI 2020 equation SODIUM 11/07/2023 14:19:49 132 Below low normal 135 -146 (mmol/L) Final Potassium 11/07/2023 14:19:49 5.5 Above high normal 3. 5-5.1 (mmol/L) Final Cl 11/07/2023 14:19:49 98 98-107 (mm ol/L) Final CO2 11/07/2023 14:19:49 21 Below low normal 22- 32 (mmol/L) Final Anion gap 11/07/2023 14:19:49 13 7-15 (mmol /L) Final Glucose 11/07/2023 14:19:49 148 Above high normal 70 -120 (mg/dL) Final Calcium 11/07/2023 14:19:49 10.0 8.4-10.2 ( mg/dL) Final Performing Location LABORATORY [facility] - [address] [place] [address]
--- OUTSIDE RECORDS SUMMARY | 2024-01-12 03:48 | External Medical Summary | Summary of Care ---
Author Name Unknown Organization [facility] Address [address] [facility] [place] [address] Phone [phone] Care Team Providers Care Keg Raiser Name Role Phone Jeffery Hobbs Mae Primary Care Provider Reason for Visit * Reason Comments Outpatient Testing Encounter Details Date Type Department Care Team (Late st Contact Info) Description 07/08/2023 9:30 AM EDT Laboratory Laboratory [address] [place] [phone] [place] [address] Anemia, unspecified type; Acquired hypothyroidism; Type 2 diabetes mellitus with hemoglobin A1c goal of less than 7.5% ([facility]) Allergies Active Allergy Reactions Criticality Noted Date [...] 50+) TABS Take by mouth. 0 Active [place]-3 Fatty Acids (FISH OIL) 1200 MG CPDR [...] DAY 400 Strip 3 09/11/2022 09/11/2023 Active [employer] Ultra 2 w/Device KitIndications:Type 2 diabetes mellitus with hemoglobin A1c goal of less than 7.0% (HCC) TEST BLOOD SUGAR FOUR TIMES A DAY 1 Each 0 09/11/2022 09/11/2023 Active KeelrTouch Delica Plus [id number] TEST BLOOD SUGAR FOUR TIMES A DAY [...] encounter Miscellaneous Notes * Addendum Note - Jeffery Hobbs DO - 08/07/2023 8:28 PM ESTAddended by: JEFFERY HOBBS on: 08/07/2023 08:28 PM Modules accepted: Orders documented in this encounter Plan of Treatment Upcoming Encounters Date Type Department Care Team (Late st Contact Info) Description 08/08/2023 8:45 AM EST NeuroDiagnostic Study Neurophysiology [facility] [address] [facility] [place] [address] Sathish Goode MD [address] [facility] [place] [address] 09/18/2023 7:00 AM EST Office Visit Neurology [facility] [address] [place] [address] Erica Ruiz PAYesica [address] [place] [address] 11/11/2023 8:00 AM EST Office Visit Nephrology, [facility] [address] [facility] [place] [address] Stacie Estevez MD [address] [facility] [place] [address] 11/13/2023 8:30 AM EST Office Visit Cardiology [address] [place] [address] Latanya Baron PA-C [address] [place] [address] 01/28/2024 8:50 AM EDT Office Visit Family Medicine [address] [place] [phone] [address] Hob[address] [place] [address] Scheduled Orders Name Type Priority Associated Diagnoses Orde r Schedule TSH Lab Routine Acquired hypothyroidism Expected: 09/18/2023 (Approximate), Expires: 08/06/2024 Scheduled Procedures Name Priority Associated Diagnoses Date/Ti [...] Procedure Name Priority Date/Time Associated Diagnosis Comments TSH Routine 08/07/2023 7:29 AM EST Acquired hypothyroidism ALBUMIN / CREATININE RATIO, URINE Routine 07/09/2023 11:36 AM EDT Type 2 diabetes mellitus with hemoglobin A1c goal of less than 7.5% (HCC) FOLIC ACID Routine 07/08/2023 9:23 AM EDT Anemia, unspecified type IRON SCREEN, INCLUDING TIBC Routine 07/08/2023 9:23 AM EDT Anemia, unspecified type POTASSIUM Routine 07/08/2023 9:23 AM EDT Type 2 diabetes mellitus with hemoglobin A1c goal of less than 7.5% (HCC) LD Routine 07/08/2023 9:23 AM EDT Anemia, unspecified type FERRITIN Routine 07/08/2023 9:23 AM EDT Anemia, unspecified type documented in this encounter Results * (ABNORMAL) TSH (08/07/2023 7:29 AM EST) TSH 5.96(H) 0.27 - 4.20 uIU/mL 08/07/2023 3:51 PM EST LAB[facility]ATORY [facility] Blood Venous blood specimen / Unknown Venipuncture / Unknown 08/07/2023 7:29 AM EST 08/07/2023 7:29 AM EST Jeffery Hobbs DO LAB BLOOD ORDERABLES LAB[facility]ATORY [facility] [address] [place] [address] * (ABNORMAL) ALBUMIN / CREATININE RATIO, URINE (07/09/2023 11:36 AM EDT) Albumin, Random Urine 36.56 mg/dL 07/09/2023 10:31 PM EDT LABORATORY [facility] Creatinine, Random Urine 143 mg/dL 07/09/2023 10:31 PM EDT LABORATORY [facility] Albumin / Creatinine Ratio, Urine 256(H) <30 mg/g Creat 07/09/2023 10:31 PM EDT LABORATORY [facility] Urine Urine specimen obtained by clean catch procedure / Unknown Non-blood Collection / Unknown 07/09/2023 11:36 AM EDT 07/09/2023 11:36 AM EDT Narrative [facility]ATORY [facility] - 07/09/2023 10:31 PM EDT Normal: <30 mg/g creatinine High: 30-300 mg/g creatinine Very High: >300 mg/g creatinine Nephrotic: >2200 mg/g creatinine Jeffery Hobbs DO LAB URINE ORDERABLES Performing Organization Address City/[facility]/ZIP Co de Phone Number LABORATORY [facility] [address] [place] [address] * POTASSIUM (07/08/2023 9:23 AM EDT) Potassium 4.9 3.5 - 5.1 mmol/L 07/08/2023 10:49 PM EDT [facility] Blood Venous blood specimen / Unknown Venipuncture / Unknown 07/08/2023 9:23 AM EDT 07/08/2023 9:23 AM EDT Jeffery Hobbs DO LAB BLOOD ORDERABLES Performing Organization Address [facility] Co de Phone Number LABORATORY [facility] [address] [place] [address] * LD (07/08/2023 9:23 AM EDT) LD 180 <=250 U/L 07/08/2023 10:49 PM EDT [facility] Blood Venous blood specimen / Unknown Venipuncture / Unknown 07/08/2023 9:23 AM EDT 07/08/2023 9:23 AM EDT Jeffery Hobbs DO LAB BLOOD ORDERABLES Performing Organization Address [facility] Co de Phone Number LABORATORY [facility] [address] [place] [address] * FOLIC ACID (07/08/2023 9:23 AM EDT) Folic Acid >20.0 >4.5 ng/mL 07/08/2023 11:38 PM EDT LABORATORY C Blood Venous blood specimen / Unknown Venipuncture / Unknown 07/08/2023 9:23 AM EDT 07/08/2023 9:23 AM EDT Jeffery Hobbs DO LAB BLOOD ORDERABLES Performing Organization Address City/[facility]/ZIP Co de Phone Number LABORATORY [facility] [address] [place] [address] * (ABNORMAL) IRON SCREEN, INCLUDING TIBC (07/08/2023 9:23 AM EDT) Iron 40(L) 45 - 176 ug/dL 07/08/2023 10:49 PM EDT [facility] Iron Binding Capacity 394 250 - 425 ug/dL 07/08/2023 10:49 PM EDT [facility] Transferrin Saturation Percent 10(L) 15 - 55 % 07/08/2023 10:49 PM EDT [facility] Blood Venous blood specimen / Unknown Venipuncture / Unknown 07/08/2023 9:23 AM EDT 07/08/2023 9:23 AM EDT Jeffery Hobbs DO LAB BLOOD ORDERABLES LABORATORY [facility] [address] [place] [address] * FERRITIN (07/08/2023 9:23 AM EDT) Ferritin 130 30 - 400 ng/mL 07/08/2023 11:38 PM EDT [facility] Blood Venous blood specimen / Unknown Venipuncture / Unknown 07/08/2023 9:23 AM EDT 07/08/2023 9:23 AM EDT Jeffery Hobbs DO LAB BLOOD ORDERABLES LABORATORY [facility] [address] [place] [address] documented in this encounter Visit Diagnoses Diagnosis Anemia, unspecified type Acquired hypothyroidism Unspecified hypothyroidism Type 2 diabetes mellitus with hemoglobin A1c goal of less than 7.5% (HCC) documented in this encounter Care Teams Keg Raiser Relationship Specialty Start Date End Date Jeffery Hobbs DO [address] [place] [address] [place] [address] PCP - General Internal Medicine 03/06/22 documented as of this encounter
--- OUTSIDE RECORDS SUMMARY | 2024-01-12 03:48 | External Medical Summary ---
Author Name Unknown Address Unknown Organization K01:LABORATORY [facility] [place] - 100 [facility] [place] [address] Laboratory Report Ordering Provider Test Date Status SHIRA LINDO 11/07/2023 14:19:49 Final Observation Date Value Abnormality Reference (Units ) Status Triglyceride 11/07/2023 14:19:49 127 <=174 ( mg/dL) Final Triglyceride Reference Range s (mg/dL):
<150 Acceptable
150-174 Borderline high
175-499 High
>=500 Very high Cholesterol 11/07/2023 14:19:49 127 <200 (mg /dL) Final Total Cholesterol Reference Ranges (mg/dL):
<200 Desirable
200-239 Borderline high
>=240 High HDL 11/07/2023 14:19:49 53 >39 (mg/dL ) Final HDL Cholesterol Reference Ra nges (mg/dL):
>=60 High (Desirable)
<50 Low (Undesirable) For Females
<40 Low (Undesirable) For Males NON-HDL CHOLESTEROL 11/07/2023 14:19:49 74 <=159 (mg/dL) Final Non-HDL Cholesterol Referenc e Range (mg/dL):
<100 Target level for high risk ASCVD patient
<130 Optimal for general population
130-159 Near optimal for general population
160-189 Borderline High
190-219 High
>=220 Very High LDL, (calculated) 11/07/2023 14:19:49 49 <= 129 (mg/dL) Final LDL Cholesterol Reference Ra nges (mg/dL):
<70 Target level for high risk ASCVD patient
<100 Optimal for general population
100-129 Near optimal for general population
130-159 Borderline high
160-189 High
>=190 Very high Performing Location LABORATORY [facility] [place] - [address] [facility] [address]
--- OUTSIDE RECORDS SUMMARY | 2024-01-12 03:48 | External Medical Summary | Summary of Care ---
Author Name Unknown Organization [facility] Address [address] [facility] [place] [address] Phone [phone] Care Team Providers Care Technology Instructor Name Role Phone HobbsJeffery Choudhury Primary Care Provider + [phone] Reason for Visit * Reason Comments Outpatient Testing Encounter Details Date Type Department Care Team (Late st Contact Info) Description 09/18/2023 7:40 AM EST Laboratory Laboratory [facility] [address] [place] [phone] [facility] [address] [place] [address] Acquired hypothyroidism Allergies Active Allergy Reactions Criticality [...] 50+) TABS Take by mouth. 0 Active [place]-3 Fatty Acids (FISH OIL) 1200 MG CPDR Take by mouth. 0 Active Triamcinolone Acetonide 0.5 % External CreamIndications:Ps oriasis APPLY TO AFFECTED AREA TWICE A DAY 30 g 11 1 Active OneTouch Delica Lancets 33GIndications:Type 2 diabetes mellitus with hemoglobin A1c goal of less than 7.0% ([facility]) Test blood sugar 4 times a day. DX E11.9 400 Each 3 3 Active Tadalafil 10 MG Oral Tablet (Cialis) Take 1 Tablet by mouth daily as needed for Erectile Dysfunction. prior to intercourse, no more than 1 dose in 24 hours 4 Tablet 11 3 Active Metoprolol Succinate ER 100 MG Oral Tablet Extended Release 24 Hour (toPROL XL) TAKE ONE TABLET BY MOUTH EVERY EVENING (IN ADDITION TO THE 50 MG TABLET IN THE MORNING) 100 Tablet 3 3 12/22/19 24 Active Metoprolol Succinate ER 50 MG Oral Tablet Extended Release 24 Hour (toPROL XL) TAKE ONE TABLET BY MOUTH EVERY MORNING (IN ADDDITION TO 100 MG TABLET IN THE EVENING) 100 Tablet 3 3 12/17/19 24 Active amLODIPine Besy-Benazepril HCl 10-40 MG Oral Capsule (Lotrel)Indications :HTN, goal below 140/90 TAKE ONE CAPSULE BY MOUTH EVERY MORNING 100 Capsule 3 2 10/07/19 24 Active glipiZIDE ER 5 MG Oral Tablet Extended Release 24 Hour (Glucotrol XL) TAKE ONE TABLET BY MOUTH EVERY MORNING -- 30 MINUTES BEFORE A MEAL 100 Tablet 3 2 10/07/19 24 Active Allopurinol 300 MG Oral Tablet (Zyloprim)Indicatio ns: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 TAKE ONE TABLET BY MOUTH EVERY MORNING 100 Tablet 3 2 10/07/19 24 Active Lansoprazole 30 MG Oral Capsule Delayed Release (Prevacid) TAKE ONE CAPSULE BY MOUTH EVERY MORNING 100 Capsule 3 2 10/07/19 24 Active Nortriptyline HCl 10 MG Oral Capsule (Pamelor) TAKE TWO CAPSULES BY MOUTH EVERY DAY AT BEDTIME 200 Capsule 3 2 10/07/19 24 Active Spironolactone 25 MG Oral Tablet (Aldactone)Indicati ons:HTN, goal below 140/90 TAKE ONE TABLET BY MOUTH EVERY MORNING 100 Tablet 3 2 10/07/19 24 Active metFORMIN HCl 1000 MG Oral Tablet (Glucophage)Indicat ions:Type 2 diabetes mellitus with hemoglobin A1c goal of less than 7.0% ([facility]) TAKE ONE TABLET BY MOUTH TWICE A DAY -- IN THE MORNING AND BEFORE BEDTIME 200 Tablet 3 2 10/07/19 24 Active Atorvastatin Calcium 40 MG Oral Tablet (Lipitor)Indication s:Hyperlipidemia with target LDL less than 70 TAKE ONE TABLET BY MOUTH EVERY DAY 100 Tablet 3 2 10/07/19 24 Active Levothyroxine Sodium 112 MCG Oral Tablet (Levoxyl) Take 1 Tablet by mouth in the morning. (at least 30 min prior to breakfast or other meds). 100 Tablet 3 4 Active Levothyroxine Sodium 100 MCG Oral Tablet (Levoxyl)Indication s:Acquired hypothyroidism Take 1 Tablet by mouth in the morning. (at least 30 min prior to breakfast or other meds). 100 Tablet 1 3 09/18/19 24 Discontinued documented as of this encounter (statuses as [...] Gout 05/14/2018 Coronary artery disease invo lving [place] coronary artery of [place] heart without angina pectoris 05/14/2018 Overview: Sees [...] Addendum Note - Jeffery Hobbs DO - 09/18/2023 3:34 PM ESTAddended by: JEFFERY HOBBS on: 09/18/2023 03:34 PM Modules accepted: Orders documented in this encounter Plan of Treatment Upcoming Encounters Date Type Department Care Team (Late st Contact Info) Description 11/06/2023 8:00 AM EST Office Visit Cardiology [address] [place] [address] Latanya Baron PA-C [address] [place] [address] 11/11/2023 8:00 AM EST Office Visit Nephrology, [facility] 200 [facility] [place] [address] Stacie Estevez MD 200 [facility] [place] [address] 01/28/2024 8:50 AM EDT Office Visit Family Medicine [address] [place] [phone] Hobbs Jeffery Choudhury[address] [place] [address] Scheduled Procedures Name Priority Associated Diagnoses Date/Ti [...] Priority Date/Time Associated Diagnosis Comments TSH Routine 09/18/2023 7:21 AM EST Acquired hypothyroidism documented in this encounter Results * (ABNORMAL) TSH (09/18/2023 7:21 AM EST) TSH 4.99(H) 0.27 - 4.20 uIU/mL 09/18/2023 1:56 PM EST [facility] Blood Venous blood specimen / Unknown Venipuncture / Unknown 09/18/2023 7:21 AM EST 09/18/2023 7:21 AM EST Jeffery Hobbs DO LAB BLOOD ORDERABLES Performing Organization Address City/State/[facility] Co de Phone Number [facility]ATORY [facility] [address] [facility] [place] [address] documented in this encounter Visit Diagnoses Diagnosis Acquired hypothyroidism Unspecified hypothyroidism documented in this encounter Care Teams Technology Instructor Relationship Specialty Start Date End Date Jeffery Hobbs DO [address] [place] [address] [place] [address] PCP - General Internal Medicine 03/06/22 documented as of this encounter
--- OUTSIDE RECORDS SUMMARY | 2024-01-12 03:48 | External Medical Summary ---
Author Name Unknown Address Unknown Organization K01:[place] [facility] [place] [address] [facility] [place] [address] Laboratory Report Ordering Provider Test Date Status ANJEL GIL 11/07/2023 14:19:49 Final Observation Date Value Abnormality Reference (Units ) Status TSH 11/07/2023 14:19:49 0.38 0.27-4.20 (uIU/mL) Final Performing Location [facility]AT[facility] - [address] [place] [address]
--- OUTSIDE RECORDS SUMMARY | 2024-01-12 03:48 | External Medical Summary | Summary of Care ---
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 0 Active Cyanocobalamin (B-12) 1000 MCG TABS Take by mouth. 0 Active Cholecalciferol 50 MCG (2000 UT) Oral Capsule Take 1 Capsule by mouth in the morning. 0 Active Multiple Vitamins-Mineral s (MULTIVITAMIN MEN 50+) TABS Take by mouth. 0 Active [place]-3 Fatty Acids (FISH OIL) 1200 MG CPDR Take by mouth. 0 Active Triamcinolone Acetonide 0.5 % External CreamIndications :Psoriasis APPLY TO AFFECTED AREA TWICE A DAY 30 g 05/03/2021 Active [place] Farleyets 33GIndications:T ype 2 diabetes mellitus with hemoglobin [...] EVERY DAY 100 Tablet 1 09/30/2023 Active amLODIPine Besy-Benazepril HCl 10-40 MG Oral Capsule (Lotrel)Indicati ons:HTN, goal below 140/90 TAKE ONE CAPSULE BY MOUTH EVERY MORNING 100 Capsule 3 08/23/2022 09/29/2023 Discontinue d(Refill) glipiZIDE ER 5 MG Oral Tablet Extended Release 24 Hour (Glucotrol XL) TAKE ONE TABLET BY MOUTH EVERY MORNING -- 30 MINUTES BEFORE A MEAL 100 Tablet 3 08/23/2022 09/29/2023 Discontinue d(Refill) Allopurinol 300 MG Oral Tablet (Zyloprim)Indica tions: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 TAKE ONE TABLET BY MOUTH EVERY MORNING 100 Tablet 3 08/23/2022 09/29/2023 Discontinue d(Refill) Lansoprazole 30 MG Oral Capsule Delayed Release (Prevacid) TAKE ONE CAPSULE BY MOUTH EVERY MORNING 100 Capsule 3 08/23/2022 09/29/2023 Discontinue d(Refill) Nortriptyline HCl 10 MG Oral Capsule (Pamelor) TAKE TWO CAPSULES BY MOUTH EVERY DAY AT BEDTIME 200 Capsule 3 08/23/2022 09/29/2023 Discontinue d(Refill) Spironolactone 25 MG Oral Tablet (Aldactone)Indic ations:HTN, goal below 140/90 TAKE ONE TABLET BY MOUTH EVERY MORNING 100 Tablet 3 08/23/2022 09/29/2023 Discontinue d(Refill) metFORMIN HCl 1000 MG Oral Tablet (Glucophage)Cristiana cations:Type 2 diabetes mellitus with hemoglobin A1c goal of less than 7.0% (HCC) TAKE ONE TABLET BY MOUTH TWICE A DAY -- IN THE MORNING AND BEFORE BEDTIME 200 Tablet 3 08/23/2022 09/29/2023 Discontinue d(Refill) Atorvastatin Calcium 40 MG Oral Tablet (Lipitor)Indicat ions:Hyperlipide sonia with target LDL less than 70 TAKE ONE TABLET BY MOUTH EVERY DAY 100 Tablet 3 08/23/2022 09/29/2023 Discontinue d(Refill) documented as of this encounter (statuses as of 09/30/2023) Active Problems Problem Noted Date Diagnosed Date [...] Advised 5 year follow up. Done in [place]. Records requested. Family history of prostate cancer in father 05/10 Gout 05/14/2018 Coronary artery disease invo lving [place] coronary artery of [place] heart without angina pectoris 05/14/2018 Overview: Sees Cardiology in [place] History of coronary artery stent placement 05/14 Overview: 2016 stent placed HTN, goal below 140/90 05/14/2018 Hyperlipidemia with target LDL less than 70 02/2018 Chronic GERD 05/14/2018 Mitral valve prolapse 05/14/2018 Fatty liver 05/12/2018 Liver lesion 05/12/2018 documented as of this encounter (statuses as of 09/30/2023) Resolved Problems Problem Noted Date Diagnosed Date Resolved Date DENNIS (acute kidney injury) 04/04/2021 Pancytopenia 01/28/2019 07/07/2019 Subclinical hypothyroidism 06/04/2018 1 Type 2 diabetes mellitus wit h hemoglobin A1c goal of less than 7.0% 05/14/2018 07/08/2023 documented as of this encounter (statuses as of 09/30/2023) Immunizations Name Administration Dates Next Due Pneumococcal [...] encounter Miscellaneous Notes * Telephone Encounter - Viral Walker, [facility] - 09/30/2023 8:05 AM ESTSigned Prescriptions: Disp Refills Allopurinol 300 MG Oral Tablet (Zyloprim) 100 Ta*1 Sig: TAKE ONE TABLET BY MOUTH EVERY MORNING Authorizing Provider: JEFFERY HOBBS Ordering User: VIRAL DYKES Nortriptyline HCl 10 MG Oral Capsule (Kendra*200 Ca*1 Sig: TAKE TWO CAPSULES BY MOUTH EVERY DAY AT BEDTIME Authorizing Provider: JEFFERY HOBBS Ordering User: ADRY DYKES metFORMIN HCl 1000 MG Oral Tablet (Glucoph*200 Ta*1 Sig: TAKE ONE TABLET BY MOUTH TWICE A DAY -- IN THE MORNING AND BEFORE BEDTIME Authorizing Provider: JEFFERY HOBBS Ordering User: VIRAL DYKES amLODIPine Besy-Benazepril HCl 10-40 MG Or*100 Ca*1 Sig: TAKE ONE CAPSULE BY MOUTH EVERY MORNING Authorizing Provider: JEFFERY HOBBS Ordering User: VIRAL DYKES gl ipiZIDE ER 5 MG Oral Tablet Extended Rel*100 Ta*1 Sig: TAKE ONE TABLET BY MOUTH EVERY MORNING -- 30 MINUTES BEFORE A MEAL Authorizing Provider: JEFFERY HOBBS Ordering User: VIRAL DYKES Lansoprazole 30 MG Oral Capsule Delayed Re*100 Ca*1 Sig: TAKE ONE CAPSULE BY MOUTH EVERY MORNING Authorizing Provider: JEFFERY HOBBS Ordering User: VIRAL DYKES Spironolactone 25 MG Or al Tablet ([place]*100 Ta*1 Sig: TAKE ONE TABLET BY MOUTH EVERY MORNING Authorizing Provider: JEFFERY HOBBS Ordering User: VIRAL DYKES Atorvastatin Calcium 40 MG Oral Tablet (Li*100 Ta*1 Sig: TAKE ONE TABLET BY MOUTH EVERY DAY Authorizing Provider: JEFFERY HOBBS Ordering User: VIRAL DYKES * Telephone Encounter - 09/29/2023 12:11 AM ESTPending Prescriptions: Disp Refills Allopurinol 300 MG Oral Tablet (Zyloprim) 100 Ta*3 Sig: TAKE ONE TABLET BY MOUTH EVERY MORNING Nortriptyline HCl 10 MG Oral Capsule (Kendra*200 Ca*3 Sig: TAKE TWO CAPSULES BY MOUTH EVERY DAY AT BEDTIME metFORMIN HCl 1000 MG Oral Tablet (Glucoph*200 Ta*3 Sig: TAKE ONE TABLET BY MOUTH TWICE A DAY -- IN THE MORNING AND BEFORE BE DTIME amLODIPine Besy-Benazepril HCl 10-40 MG Or*100 Ca*3 Sig: TAKE ONE CAPSULE BY MOUTH EVERY MORNING glipiZIDE ER 5 MG Oral Tablet Extended Rel*100 Ta*3 Sig: TAKE ONE TABLET BY MOUTH EVERY MORNING -- 30 MINUTES BEFORE A MEAL Lansoprazole 30 MG Oral Capsule Delayed Re*100 Ca*3 Sig: TAKE ONE CAPSULE BY MOUTH EVERY MORNING Spironolactone 25 MG Oral Tablet ([place]act[place]*100 Ta*3 Sig: TAKE ONE TABLET BY MOUTH EVERY MORNING * Telephone Encounter - 09/29/2023 12:11 AM ESTPending Prescriptions: Disp Refills Allopurinol 300 MG Oral Tablet (Zyloprim) 100 Ta*3 Sig: TAKE ONE TABLET BY MOUTH EVERY MORNING Nortriptyline HCl 10 MG Oral Capsule (Kendra*200 Ca*3 Sig: TAKE TWO CAPSULES BY MOUTH EVERY DAY AT BEDTIME metFORMIN HCl 1000 MG Oral Tablet (Glucoph*200 Ta*3 Sig: TAKE ONE TABLET BY MOUTH TWICE A DAY -- IN THE MORNING AND BEFORE BE DTIME amLODIPine Besy-Benazepril HCl 10-40 MG Or*100 Ca*3 Sig: TAKE ONE CAPSULE BY MOUTH EVERY MORNING glipiZIDE ER 5 MG Oral Tablet Extended Rel*100 Ta*3 Sig: TAKE ONE TABLET BY MOUTH EVERY MORNING -- 30 MINUTES BEFORE A MEAL Lansoprazole 30 MG Oral Capsule Delayed Re*100 Ca*3 Sig: TAKE ONE CAPSULE BY MOUTH EVERY MORNING Spironolactone 25 MG Oral Tablet ([place]*100 Ta*3 Sig: TAKE ONE TABLET BY MOUTH EVERY MORNING Atorvastatin Calcium 40 MG Oral Tablet (Li*100 Ta*3 Sig: TAKE ONE TABLET BY MOUTH EVERY DAY * Telephone Encounter - 09/29/2023 12:11 AM ESTPending Prescriptions: Disp Refills Allopurinol 300 MG Oral Tablet (Zyloprim) 100 Ta*3 Sig: TAKE ONE TABLET BY MOUTH EVERY MORNING Nortriptyline HCl 10 MG Oral Capsule (Kendra*200 Ca*3 Sig: TAKE TWO CAPSULES BY MOUTH EVERY DAY AT BEDTIME * Telephone Encounter - 09/29/2023 12:11 AM ESTPending Prescriptions: Disp Refills Allopurinol 300 MG Oral Tablet (Zyloprim) 100 Ta*3 Sig: TAKE ONE TABLET BY MOUTH EVERY MORNING Nortriptyline HCl 10 MG Oral Capsule (Kendra*200 Ca*3 Sig: TAKE TWO CAPSULES BY MOUTH EVERY DAY AT BEDTIME metFORMIN HCl 1000 MG Oral Tablet (Glucoph*200 Ta*3 Sig: TAKE ONE TABLET BY MOUTH TWICE A DAY -- IN THE MORNING AND BEFORE BE DTIME * Telephone Encounter - 09/29/2023 12:11 AM ESTPending Prescriptions: Disp Refills Allopurinol 300 MG Oral Tablet (Zyloprim) 100 Ta*3 Sig: TAKE ONE TABLET BY MOUTH EVERY MORNING Nortriptyline HCl 10 MG Oral Capsule (Kendra*200 Ca*3 Sig: TAKE TWO CAPSULES BY MOUTH EVERY DAY AT BEDTIME metFORMIN HCl 1000 MG Oral Tablet (Glucoph*200 Ta*3 Sig: TAKE ONE TABLET BY MOUTH TWICE A DAY -- IN THE MORNING AND BEFORE BE DTIME amLODIPine Besy-Benazepril HCl 10-40 MG Or*100 Ca*3 Sig: TAKE ONE CAPSULE BY MOUTH EVERY MORNING * Telephone Encounter - 09/29/2023 12:11 AM ESTPending Prescriptions: Disp Refills Allopurinol 300 MG Oral Tablet (Zyloprim) 100 Ta*3 Sig: TAKE ONE TABLET BY MOUTH EVERY MORNING Nortriptyline HCl 10 MG Oral Capsule (Kendra*200 Ca*3 Sig: TAKE TWO CAPSULES BY MOUTH EVERY DAY AT BEDTIME metFORMIN HCl 1000 MG Oral Tablet (Glucoph*200 Ta*3 Sig: TAKE ONE TABLET BY MOUTH TWICE A DAY -- IN THE MORNING AND BEFORE BE DTIME amLODIPine Besy-Benazepril HCl 10-40 MG Or*100 Ca*3 Sig: TAKE ONE CAPSULE BY MOUTH EVERY MORNING glipiZIDE ER 5 MG Oral Tablet Extended Rel*100 Ta*3 Sig: TAKE ONE TABLET BY MOUTH EVERY MORNING -- 30 MINUTES BEFORE A MEAL * Telephone Encounter - 09/29/2023 12:11 AM ESTPending Prescriptions: Disp Refills Allopurinol 300 MG Oral Tablet (Zyloprim) 100 Ta*3 Sig: TAKE ONE TABLET BY MOUTH EVERY MORNING Nortriptyline HCl 10 MG Oral Capsule (Kendra*200 Ca*3 Sig: TAKE TWO CAPSULES BY MOUTH EVERY DAY AT BEDTIME metFORMIN HCl 1000 MG Oral Tablet (Glucoph*200 Ta*3 Sig: TAKE ONE TABLET BY MOUTH TWICE A DAY -- IN THE MORNING AND BEFORE BE DTIME amLODIPine Besy-Benazepril HCl 10-40 MG Or*100 Ca*3 Sig: TAKE ONE CAPSULE BY MOUTH EVERY MORNING glipiZIDE ER 5 MG Oral Tablet Extended Rel*100 Ta*3 Sig: TAKE ONE TABLET BY MOUTH EVERY MORNING -- 30 MINUTES BEFORE A MEAL Lansoprazole 30 MG Oral Capsule Delayed Re*100 Ca*3 Sig: TAKE ONE CAPSULE BY MOUTH EVERY MORNING documented in this encounter Plan of Treatment Upcoming Encounters Date Type Department Care Team (Late st Contact Info) Description 11/06/2023 8:00 AM EST Office Visit Cardiology [address] [place] [address] Latanya Baron PA-C [address] [facility] [place] [address] 11/11/2023 8:00 AM EST Office Visit Nephrology, Tameka Arias [address] [place] [address] Stacie Estevez MD [address] [place] [address] 01/28/2024 8:50 AM EDT Office Visit Family Medicine [address] [place] [phone] [address] [place] [address] Scheduled Procedures Name Priority Associated Diagnoses Date/Ti [...] as of this encounter Visit Diagnoses Diagnosis 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
--- OUTSIDE RECORDS SUMMARY | 2024-01-12 03:48 | External Medical Summary ---
Author Name Unknown Address Unknown Organization K01:LABORATORY [facility] [place] - [address] [facility] [place] [address] Laboratory Report Ordering Provider Test Date Status CAMILLE GILON 09/18/2023 07:21:43 Final Observation Date Value Abnormality Reference (Units ) Status TSH 09/18/2023 07:21:43 4.99 Above high normal 0. 27-4.20 (uIU/mL) Final Performing Location LABORATORY C - [address] [place] [address]
--- OUTSIDE RECORDS SUMMARY | 2024-01-12 03:48 | External Medical Summary | Summary of Care ---
Author Name Unknown Organization [facility] Address [address] [facility] [place] [address] Phone [phone] Care Team Providers Care Manager It Training Name Role Phone Marshall, Pam Choudhury Primary Care Provider Encounter Details Date Type Department Care Team (Late st Contact Info) Description 11/07/2023 Orders Only PATIENT PORTAL DO NOT DELETE THIS DEPT USED BY [place] [id number] Allergies Active Allergy Reactions Criticality Noted Date [...] 50+) TABS Take by mouth. 0 Active [place]-3 Fatty Acids (FISH OIL) 1200 MG CPDR Take by mouth. 0 Active Triamcinolone Acetonide 0.5 % External CreamIndications:P soriasis APPLY TO AFFECTED AREA TWICE A DAY 30 g 11 05/03/2021 Active OneTouch Delica Lancets 33GIndications:Typ e 2 diabetes mellitus with hemoglobin A1c goal of less than 7.0% ([facility]) Test blood sugar 4 times [...] goal of less than 7.0% ([facility]) TAKE ONE TABLET BY MOUTH [...] Gout 05/14/2018 Coronary artery disease invo lving [place] coronary artery of [place] heart without angina pectoris 05/14/2018 Overview: Sees [...] EST Office Visit Nephrology, Tameka Arias [address] [place] [address] Stacie Estevez MD 200 [facility] [place] [address] 01/28/2024 8:50 AM EDT Office Visit Family Medicine [address] [place] [phone] Pam Marshall[address] [place] [address] 01/29/2024 11:00 AM EDT Imaging Cardiac Studies, [facility] [address] [facility] [place] [address] Scheduled Procedures Name Priority Associated Diagnoses Date/Ti [...] 18-100 03/09/2024 03/09/2019, 03/09/2019 GFR 07/01/2024 07/01/2023, 042 09/2022, 09/17/2022, Additional history exists Albumin/Creatinine Ratio [...] as of this encounter Care Teams Manager It Training Relationship Specialty Start Date End Date Pam Marshall DO [address] [place] [address] [place] [phone] PCP - General Internal Medicine 03/06/22 documented as of this encounter
--- OUTSIDE RECORDS SUMMARY | 2024-01-12 03:48 | External Medical Summary ---
Author Name Unknown Address Unknown Organization K01:[place] [facility] [place] [address] [facility] [address] Laboratory Report Ordering Provider Test Date Status ALEXIS MCCLOUD 11/07/2023 14:19:49 Final Observation Date Value Abnormality Reference (Units ) Status Color of Urine by Auto 11/07/2023 14:19:49 Colorless Colorless, Light Yellow, Yellow, Dark Yellow Final Clarity, Urine 11/07/2023 14:19:49 Clear Clear Final Glucose [Mass/volume] in Urine by Automated test strip 11/07/2023 14:19:49 Negative Negative (mg/dL) Final Bilirubin.total [Presence] in Urine by Automated test strip 11/07/2023 14:19:49 Negative Negative Final Ketones [Mass/volume] in Urine by Automated test strip 11/07/2023 14:19:49 Negative Negative (mg/dL) Final Specific gravity, Urine 11/07/2023 14:19:49 1.008 1.003-1.030 Final Hemoglobin [Presence] in Urine by Automated test strip 11/07/2023 14:19:49 Negative Negative Final pH, Urine 11/07/2023 14:19:49 6.0 5.0-7.5 (Units) Final Protein [Mass/volume] in Urine by Automated test strip 11/07/2023 14:19:49 Negative Negative (mg/dL) Final Urobilinogen [Mass/volume] in Urine by Automated test strip 11/07/2023 14:19:49 Normal Normal (mg/dL) Final Nitrite [Presence] in Urine by Automated test strip 11/07/2023 14:19:49 Negative Negative Final Leukocyte esterase [Presence] in Urine by Automated test strip 11/07/2023 14:19:49 Negative Negative Final RBC, Urine 11/07/2023 14:19:49 0-2 0-2 (/HPF) Final WBC, Urine 11/07/2023 14:19:49 0-2 0-2 (/HPF) Final Bacteria [#/area] in Urine sediment by Microscopy high power field 11/07/2023 14:19:49 0-25 0-25 (/HPF) Final Performing Location [facility] [place] [facility] [address] [facility] [address]
--- OUTSIDE RECORDS SUMMARY | 2024-01-12 03:48 | External Medical Summary | Summary of Care ---
Author Name Unknown Organization [facility] Address [address] [facility] [place] [address] Phone [phone] Care Team Providers Care Community Health Worker Name Role Phone MarshallPam Choudhury Primary Care Provider + [phone] Reason for Visit * Reason Comments Outpatient Testing Encounter Details Date Type Department Care Team (Late st Contact Info) Description 09/18/2023 7:40 AM EST Laboratory Laboratory [facility] [address] [place] [phone] [facility] [address] [place] [address] Acquired hypothyroidism Allergies Active Allergy Reactions Criticality [...] 50+) TABS Take by mouth. 0 Active Range-3 Fatty Acids (FISH OIL) 1200 MG CPDR Take by mouth. 0 Active Triamcinolone Acetonide 0.5 % External CreamIndications:Pso riasis APPLY TO AFFECTED AREA TWICE A DAY 30 g 11 05/03/2021 Active OneTouch Delica Lancets 33GIndications:Type 2 diabetes mellitus with hemoglobin A1c goal of less than 7.0% ([facility]) Test blood sugar 4 times [...] goal of less than 7.0% ([facility]) TAKE ONE TABLET BY MOUTH [...] 11/11/2023 8:00 AM EST Office Visit Nephrology, [facility] [address] [facility] [address] [place] [address] Stacie Estevez MD [address] [facility] [place] [address] 11/13/2023 8:30 AM EST Office Visit Cardiology [address] [place] [address] Latanya Baron PA-C [address] [place] [address] 01/28/2024 8:50 AM EDT Office Visit Family Medicine [address] [place] [phone] Pam Marshall[address] [place] [address] Pending Results Name Type Priority Associated Diagnoses Date /Time TSH Lab Routine Acquired hypothyroidism 09/18/2023 7:21 AM EST Scheduled Procedures Name Priority Associated Diagnoses [...] 09/05/2020, Additional history exists HbA1c 12/31/2023 07/01/2023, 2 09/2022, 03/06/2022, Additional history exists Depression Screening [...] as of this encounter Visit Diagnoses Diagnosis Acquired hypothyroidism Unspecified hypothyroidism documented in this encounter Care Teams Community Health Worker Relationship Specialty Start Date End Date Pam Marshall DO [address] [place] [address] [place] [phone] PCP - General Internal Medicine 03/06/22 documented as of this encounter
--- OUTSIDE RECORDS SUMMARY | 2024-01-12 03:48 | External Medical Summary | Summary of Care ---
Author Name Unknown Organization [facility] Address [address] [facility] [place] [address] Phone [phone] Care Team Providers Care Extension Worker Name Role Phone Pam Marshall DO Primary Care Provider [phone] Reason for Visit * Reason Onset Date Comments Medication Question 07/16/2023 New Rx Levot hyroxine Encounter Details Date Type Department Care Team (Late st Contact Info) Description 07/16/2023 Telephone Family Medicine [address] [place] [phone] Pam Marshall DO [address] [place] [address] [place] [address] Medication Question (New Rx Levothyroxine) Allergies Active Allergy Reactions Criticality Noted Date Comments Oxycodone-Acetaminophen Itching High 05/12/2018 documented as of this encounter (statuses as of 07/23/2023) Medications Medication Sig Dispensed Refills Start Date End Date Status Aspirin 81 MG Tablet Take 1 Tablet by mouth in the morning. 0 Active Cyanocobalamin (B-12) 1000 MCG TABS Take by mouth. 0 Active Cholecalciferol 50 MCG (2000 UT) Oral Capsule Take 1 Capsule by mouth in the morning. 0 Active Multiple Vitamins-Minerals (MULTIVITAMIN MEN 50+) TABS Take by mouth. 0 Active Beaman-3 Fatty Acids (FISH OIL) 1200 MG CPDR [...] DAY 400 Strip 3 09/11/2022 09/11/2023 Active [employer].ToMibuzz.tv Ultra 2 w/Device KitIndications:Type 2 diabetes mellitus with hemoglobin A1c goal of less than 7.0% (HCC) TEST BLOOD SUGAR FOUR TIMES A DAY 1 Each 0 09/11/2022 09/11/2023 Active OneTouch Delica Plus [id number] TEST BLOOD SUGAR FOUR TIMES A DAY [...] as of this encounter (statuses as of 07/23/2023) Active Problems Problem Noted Date Diagnosed Date [...] Gout 05/14/2018 Coronary artery disease invo lving [place] coronary artery of [place] heart without angina pectoris 05/14/2018 Overview: Sees Cardiology in [place] History of coronary artery stent placement 05/14 Overview: 2016 stent placed HTN, goal below 140/90 05/14/2018 Hyperlipidemia with target LDL less than 70 02/2018 Chronic GERD 05/14/2018 Mitral valve prolapse 05/14/2018 Fatty liver 05/12/2018 Liver lesion 05/12/2018 documented as of this encounter (statuses as of 07/23/2023) Resolved Problems Problem Noted Date Diagnosed Date Resolved Date DENNIS (acute kidney injury) 04/04/2021 Pancytopenia 01/28/2019 07/07/2019 Subclinical hypothyroidism 06/04/2018 1 Type 2 diabetes mellitus wit h hemoglobin A1c goal of less than 7.0% 05/14/2018 07/08/2023 documented as of this encounter (statuses as of 07/23/2023) Immunizations Name Administration Dates Next Due Pneumococcal [...] encounter Miscellaneous Notes * Telephone Encounter - Pam Marshall DO - 07/23/2023 4:21 PM EST Per his [employer] message, he wants told hold off on changing his BP meds at this time. * Telephone Encounter - Leah Blood LPN - 07/17/2023 10:48 AM EST Patient aware and verbalized understanding. Is agreeable with changing mediactions. Pharmacy verified. Please advise. * Telephone Encounter - Alicia Lin LPN - 07/17/2023 10:40 AM EST message left for patient to return my phone call Transfer to Nurse Triage Line [phone]. Give pt message About Levothyroxine and Mychart message below See TE on Mychart message Not read. Test Results. Posted Below "Albaro Magan, I reviewed your blood work. You do have an iron deficiency. I would like you to take an over the counter iron supplement (ferrous sulfate 325 mg) daily along with some vitamin C. I would like to repeat your blood counts at the end of July to make sure they are coming back up. Your urine test has increased protein in it. We need to make sure your blood pressure and diabetes are well controlled in order to protect your kidneys. Ideally, you would be on a medicine called losartan, but we would need to change around your blood pressure medicines in order to add this. Pleaselet me know if you are agreeable to changing your medications. Please write back to this message so I know that you received it. Pam Marshall, This [facility] message has not been read." * Telephone Encounter - Pam Marshall DO - 07/16/2023 2:06 PM EST Have him stop it until he feels better then have him restart it taking only 1/2 a pill (50 mcg) to see if this is more tolerable. His insomnia could be due to the medication, but I do not think the hand cramping is related. * Telephone Encounter - Darcy Chang LPN - 07/16/2023 1:49 PM EST Patient calling in with concerns of his new medication that was started on Friday07/14/2023. He stated that since starting Levothyroxine he has not been able to sleep. He also stated that his hands are starting to cramp up on him. Last dose: 3am this morning on an empty stomach. He stated that he take a couple medications that has to be on an empty stomach so he has to set an alarm to make sure that he takes them properly. He stated that he is not going to be taking any more of the medication due to the side effects. Please advise * Telephone Encounter - Claudette Horne OSA - 07/16/2023 1:42 PM EST Reason for patient's call: Pts Maribel called asking to speak to a nurse regarding new Rx Levothyroxine. Maribel stated, Magan started Rx 11.06 and has no sleep since starting the Rx. Now his hands are cramping up. Caller was transferred to Darcy at the nurse line. Thank you documented in this encounter Plan of Treatment Upcoming Encounters Date Type Department Care Team (Late st Contact Info) Description 08/08/2023 8:45 AM EST NeuroDiagnostic Study Neurophysiology [facility] [address] [facility] [place] [address] Sathish Goode MD 200 [place] [address] 09/16/2023 7:30 AM EST Laboratory Laboratory [address] [place] [phone] [place] [address] 09/18/2023 7:00 AM EST Office Visit Neurology [facility] [address] [facility] [place] [address] Erica Ruiz PA-C [address] [place] [address] 11/11/2023 8:00 AM EST Office Visit Nephrology, [facility] [address] [place] [address] Stacie Estevez MD [address] [place] [address] 11/13/2023 8:30 AM EST Office Visit Cardiology [address] [place] [address] Latanya Baron, ZACK [address] [place] [address] 01/28/2024 8:50 AM EDT Office Visit Family Medicine [address] [place] [phone] Pam Marshall[address] [place] [address] Scheduled Procedures Name Priority Associated Diagnoses Date/Ti [...] 09/17/2022, Additional history exists TSH 07/01/2024 07/01/2023, 090 03/2022, 03/06/2022, Additional history exists Albumin/Creatinine Ratio [...] filedocumented as of this encounter Care Teams Extension Worker Relationship Specialty Start Date End Date Pam Marshall DO [address] [place] [address] [place] [phone] PCP - General Internal Medicine 03/06/22 documented as of this encounter
--- OUTSIDE RECORDS SUMMARY | 2024-01-12 03:49 | External Medical Summary | Summary of Care ---
Author Name Unknown Organization [facility] Address [address] [facility] [place] [address] Phone [phone] Care Team Providers Care Implementation Advisor Name Role Phone Pam Marshall DO Primary Care Provider Reason for Visit * Reason Onset Date Comments Advice 07/21/2023 ER follow up Encounter Details Date Type Department Care Team (Late st Contact Info) Description 07/21/2023 Telephone Family Medicine [address] [phone] Pam Marshall DO [address] [place], [place] [address] [phone] Advice (ER follow up) Allergies Active Allergy Reactions Criticality Noted Date [...] 50+) TABS Take by mouth. 0 Active Hawthorne-3 Fatty Acids (FISH OIL) 1200 MG CPDR Take by mouth. 0 Active Triamcinolone Acetonide 0.5 % External CreamIndications:Pso riasis APPLY TO AFFECTED AREA TWICE A DAY 30 g 11 05/03/2021 Active OneTouch DelEncompass Media Lancets 33GIndications:Type 2 diabetes mellitus with hemoglobin [...] DAY 400 Strip 3 09/11/2022 09/11/2023 Active ALPHAThrottle.comToExplara Ultra 2 w/Device KitIndications:Type 2 diabetes mellitus with hemoglobin A1c goal of less than 7.0% (HCC) TEST BLOOD SUGAR FOUR TIMES A DAY 1 Each 0 09/11/2022 09/11/2023 Active OneTouch Delica Plus [id number] TEST BLOOD SUGAR FOUR TIMES A DAY [...] Gout 05/14/2018 Coronary artery disease invo lving [place] coronary artery of [place] heart without angina pectoris 05/14/2018 Overview: Sees [...] encounter Miscellaneous Notes * Telephone Encounter - Lani Marino LPN - 07/23/2023 3:01 PM EST Pt notified, verbalized understanding. Pt states his blood sugars have started to come down as of last night. * Telephone Encounter - Pam Marshall DO - 07/21/2023 9:25 PM EST The Keflex should not raise his blood sugars - but the infection in his leg may. I would continue the same meds and watch his diet closely. He should call me if his blood sugars remain elevated once the infection clears. * Telephone Encounter - Brigid Chavarria OSA - 07/21/2023 2:20 PM EST Pts called for advice. Pt was seen at the [facility] ER on 07/19 and was diagnosed with Cellulitis on his left leg. Pt was prescribed an antibiotic which is Cephalexin. Pt states that it is starting to help but it is messing with his sugar and elevating it. Pts sugars are now in the 230's. Ptssugars prior to the medication were always 150 or lower. [facility] is [facility] for advice regarding the medication affecting his sugar. Please advise. documented in this encounter Plan of Treatment Upcoming Encounters Date Type Department Care Team (Late st Contact Info) Description 08/08/2023 8:45 AM EST NeuroDiagnostic Study Neurophysiology [facility] [address] [facility] [place] [address] Sathish Goode MD [address] [facility] [place] [address] 09/16/2023 7:30 AM EST Laboratory Laboratory [address] [place] [phone] [place] [address] 09/18/2023 7:00 AM EST Office Visit Neurology [facility] [address] [facility] [place] [address] Erica Ruiz PA-C [address] [place] [address] 11/11/2023 8:00 AM EST Office Visit Nephrology, [facility] [address] [facility] [place] [address] Stacie Estevez MD [address] [facility] [place] [address] 11/13/2023 8:30 AM EST Office Visit Cardiology [address] [place] [address] Latanya Baron PA-C [address] [place] [address] 01/28/2024 8:50 AM EDT Office Visit Family Medicine [address] [place] [phone] [place] [address] Scheduled Procedures Name Priority Associated Diagnoses Date/Ti [...] 07/01/2023, 04/2 09/2022, 09/17/2022, Additional history exists TSH 07/01/2024 07/01/2023, [...] filedocumented as of this encounter Care Teams Implementation Advisor Relationship Specialty Start Date End Date Pam Marshall DO [address] [place] [address] [place] [address] PCP - General Internal Medicine 03/06/22 documented as of this encounter
--- OUTSIDE RECORDS SUMMARY | 2024-01-12 03:49 | External Medical Summary | Summary of Care ---
Author Name Unknown Organization [facility] Address [address] [facility] [place] [address] Phone [phone] Care Team Providers Care Leguillon Debeader Name Role Phone Pam Marshall DO Primary Care Provider Reason for Visit * Reason Onset Date Comments Advice 07/21/2023 ER follow up Encounter Details Date Type Department Care Team (Late st Contact Info) Description 07/21/2023 Telephone Family Medicine [address] [phone] Pam Marshall DO [address] [place], [place] [address] [phone] Advice (ER follow up) Allergies Active Allergy [...] 50+) TABS Take by mouth. 0 Active Swan-3 Fatty Acids (FISH OIL) 1200 MG CPDR Take by mouth. 0 Active Triamcinolone Acetonide 0.5 % External CreamIndications:Pso riasis APPLY TO AFFECTED AREA TWICE A DAY 30 g 11 05/03/2021 Active OneTouch DelCipherApps Lancets 33GIndications:Type 2 diabetes mellitus with hemoglobin [...] DAY 400 Strip 3 09/11/2022 09/11/2023 Active Xcode Life SciencesToPikanote Ultra 2 w/Device KitIndications:Type 2 diabetes mellitus with hemoglobin A1c goal of less than 7.0% (HCC) TEST BLOOD SUGAR FOUR TIMES A DAY 1 Each 0 09/11/2022 09/11/2023 Active OneTouch Delica Plus [id number] TEST BLOOD SUGAR FOUR TIMES A DAY [...] Advised 5 year follow up. Done in [place]. Records requested. Family history of prostate cancer in father 05/10 Gout 05/14/2018 Coronary artery disease invo lving [place] coronary artery of [place] heart without angina pectoris 05/14/2018 Overview: Sees Cardiology in [place] History of coronary artery stent placement 05/14 [...] for advice. Pt was seen at the [facility] ER on 07/19 and was diagnosed with [...] 08/08/2023 8:45 AM EST NeuroDiagnostic Study Neurophysiology [facility] 200 [facility] [place] [address] Sathish Goode MD 200 [facility] [place] [address] 09/16/2023 7:30 AM EST Laboratory Laboratory [address] [place] [phone] [place] [address] 09/18/2023 7:00 AM EST Office Visit Neurology [facility] 200 [facility] [place] [address] Erica Ruiz PA-C [address] [place] [address] 11/11/2023 8:00 AM EST Office Visit Nephrology, [facility] 200 [facility] [place] [address] Stacie Estevez MD 200 [facility] [place] [address] 11/13/2023 8:30 AM EST Office Visit Cardiology [address] [place] [address] Latanya Baron PA-C [address] [place] [address] 01/28/2024 8:50 AM EDT Office Visit Family Medicine [address] [place] [phone] [place] [address] Scheduled Procedures Name Priority Associated Diagnoses Date/Ti [...] filedocumented as of this encounter Care Teams Leguillon Debeader Relationship Specialty Start Date End Date Pam Marshall DO [address] [place] [address] [place] [address] PCP - General Internal Medicine 03/06/22 documented as of this encounter
--- OUTSIDE RECORDS SUMMARY | 2024-01-12 03:49 | External Medical Summary | Summary of Care ---
Author Name Unknown Organization [facility] Address [address] [facility] [place] [address] Phone [phone] Care Team Providers Care Furniture Sales Consultant Name Role Phone Pam Marshall DO Primary Care Provider [phone] Reason for Visit * Reason Onset Date Comments Test Results 07/17/2023 Encounter Details Date Type Department Care Team (Late st Contact Info) Description 07/17/2023 Telephone Family Medicine [address] [phone] Pam Marshall DO [address] [place] [address] [place] [phone] Test Results Allergies Active Allergy Reactions Criticality Noted Date Comments Oxycodone-Acetaminophen Itching High 05/12/2018 documented as of this encounter (statuses as of 07/17/2023) Medications Medication Sig Dispensed Refills Start Date End Date Status Aspirin 81 MG Tablet Take 1 Tablet by mouth in the morning. 0 Active Cyanocobalamin (B-12) 1000 MCG TABS Take by mouth. 0 Active Cholecalciferol 50 MCG (2000 UT) Oral Capsule Take 1 Capsule by mouth in the morning. 0 Active Multiple Vitamins-Minerals (MULTIVITAMIN MEN 50+) TABS Take by mouth. 0 Active Bitely-3 Fatty Acids (FISH OIL) 1200 MG CPDR [...] DAY 400 Strip 3 09/11/2022 09/11/2023 Active PrognosDx Health Ultra 2 w/Device KitIndications:Type 2 diabetes mellitus with hemoglobin A1c goal of less than 7.0% (HCC) TEST BLOOD SUGAR FOUR TIMES A DAY 1 Each 0 09/11/2022 09/11/2023 Active PrognosDx Health DelSafetyPay Plus [id number] TEST BLOOD SUGAR FOUR TIMES A DAY [...] as of this encounter (statuses as of 07/17/2023) Active Problems Problem Noted Date Diagnosed Date [...] Advised 5 year follow up. Done in [place]. Records requested. Family history of prostate cancer in father 05/10 Gout 05/14/2018 Coronary artery disease invo lving [place] coronary artery of [place] heart without angina pectoris 05/14/2018 Overview: Sees Cardiology in [place] History of coronary artery stent placement 05/14 Overview: 2016 stent placed HTN, goal below 140/90 05/14/2018 Hyperlipidemia with target LDL less than 70 02/2018 Chronic GERD 05/14/2018 Mitral valve prolapse 05/14/2018 Fatty liver 05/12/2018 Liver lesion 05/12/2018 documented as of this encounter (statuses as of 07/17/2023) Resolved Problems Problem Noted Date Diagnosed Date Resolved Date DENNIS (acute kidney injury) 04/04/2021 Pancytopenia 01/28/2019 07/07/2019 Subclinical hypothyroidism 06/04/2018 1 Type 2 diabetes mellitus wit h hemoglobin A1c goal of less than 7.0% 05/14/2018 07/08/2023 documented as of this encounter (statuses as of 07/17/2023) Immunizations Name Administration Dates Next Due Pneumococcal [...] encounter Miscellaneous Notes * Telephone Encounter - Alicia Lin LPN - 07/17/2023 10:42 AM EST Call Transfer into other [facility] * Telephone Encounter - Alicia Lin LPN - 07/17/2023 10:39 AM EST message left for patient to return my phone call Transfer to Nurse triage line [phone] * Telephone Encounter - Pam Marshall DO - 07/17/2023 9:27 AM EST Pt did not read his Inova LabsG message. Please call patient to discuss and route back to me afterwards. documented in this encounter Plan of Treatment Upcoming Encounters Date Type Department Care Team (Late st Contact Info) Description 08/08/2023 8:45 AM EST NeuroDiagnostic Study Neurophysiology [facility] 200 [facility] [place] [address] Sathish Goode MD 200 [facility] [place] [address] 09/16/2023 7:30 AM EST Laboratory Laboratory [address] [place] [phone] [facility] [address] [place] [address] 09/18/2023 7:00 AM EST Office Visit Neurology [facility] 200 [facility] [place] [address] Erica Ruiz PA-C [address] [facility] [place] [address] 11/11/2023 8:00 AM EST Office Visit Nephrology, [facility] 200 [facility] [place] [address] Stacie Estevez MD 200 [facility] [place] [address] 11/13/2023 8:30 AM EST Office Visit Cardiology [address] [place] [address] Latanya Baron PA-C [address] [place] [phone] 01/28/2024 8:50 AM EDT Office Visit Family Medicine [address] [place] [phone] [address] [place] [address] Scheduled Procedures Name Priority Associated Diagnoses Date/Ti [...] 09/05/2020, Additional history exists HbA1c 12/31/2023 07/01/2023, 04/2 09/2022, 03/06/2022, Additional [...] filedocumented as of this encounter Care Teams Furniture Sales Consultant Relationship Specialty Start Date End Date Pam Marshall DO [address] [place] [address] [place] [address] PCP - General Internal Medicine 03/06/22 documented as of this encounter
[2024-01-12 05:26] LABS: BUN Creatinine Ratio 5.6 (10-20); Calcium 7.1 mg/dl (8.6-10.3); Creatinine Clr Calc Pharmacy 8.6 ml/min; Est GFR (African American) 6.7 ml/min; Est GFR (Non-African American) 5.8 ml/min; Ferritin 72.5 ng/ml (8-388); Phosphorus 6.9 mg/dl (2.5-4.9); Potassium 5.1 mmol/L (3.5-5.1)
[2024-01-12 05:57] LABS: Hematocrit (blood only) 21.2 % (42.0-52.0); Hemoglobin 7.5 g/dl (14.0-18.0); Mean Corpuscular Hemoglobin 31.4 pg (25.0-34.0); Mean Corpuscular Hgb Conc 35.4 g/dL (32.0-36.0); Mean Corpuscular Volume 88.7 fL (80.0-100.0); Platelet Count 134 K/uL (130-400); RDW Coefficient of Variation 12.5 % (11.5-14.5); RDW Standard Deviation 40.6 fL (36.4-46.3); Red Blood Count 2.39 M/uL (4.70-6.10); White Blood Count 5.53 K/ul (4.8-10.8)
[2024-01-12 06:03] LABS: Folate (Folic Acid),Ser orPlas > 22.30 ng/ml (>5.38)
[2024-01-12 06:04] LABS: Vitamin B12 > 1500 pg/ml (180-914)
[2024-01-12] MEDS ORDERED: STAT IV/IM STA (06:17)
[2024-01-12] MEDS: SODIUM BICARBONATE 8.4% 150 MEQ in DEXTROSE 5% 1,000 ML IV SCH (06:40)
[2024-01-12] MEDS: THIAMINE HCL 100 MG TAB PO SCH (08:46)
--- NOTE | 2024-01-12 08:57 | Nephrology Progress Note ---
Date of Service January 12, 2024 Assessment & Plan (1) ARF (acute renal failure): Plan: abrupt and to date unexplained stage 3 nonoliguric DENNIS > slowly worsening. normal renal function at baseline w/ creatinine 0.9 but does have hx of white coat HTN, DM Not prerenal >> he 's not orthostatic, VS have been solid/stable; he is 7.7 L positive so far and minimal improvement in renal function; he does have ongoing diarrhea but not copious amounts per patient and nursing; he 's had 3 BM today w/ chunks and small amount of water each time. hemodynamically stable on RA; no volume OL or depletion on exam; no e/o liver or cardiac dysfunction. -with ongoing diarrhea stopped bic gtt given his chemistries and started NS Not postrenal > no UOP challenges until today; no oliguria; he last voided 9 hours ago and has 350 mL in bladder on scan; no flank or suprapubic pain; no stone hx; admission imaging 48 hours ago unremarkable. CK < 500 on admission and downtrending > if unable to void in next 2-3 hours will need calloway >stat renal u/s to ensure no changes curiously urine sediment with sugar (suggesting new tubular dysfunction though he is also diabetic), trace dipstick proteinuria (usually present for him), blood (which is new) > ? AIN or ? diarrhea/infection-related GN w/ antibodies and/or complement fixation. he has slowly progressive iron deficiency anemia but no thrombocytopenia or other hematologic red flags. he is diabetic and w/ HTN but neither w/ particularly poor control >ordered repeat UA, ordered prot/creat ratio, urine chemistries as below Though from a renal standpoint slowly worsening, still no indication for emergent dialysis > he is not overloaded, not oliguric, chemistries acceptable, not acidemic, not encephalopathic -started lokelma today -changed low K to renal diet >>recommend renal biopsy to understand cause of severe DENNIS better and hopefully to avoid dialysis if treatable finding; d/w Dr Grubbs and with patient. he is in agreement to go to [facility] for eval for renal bx; he understands they may or may not do that procedure depending on their assessments and his clinical course but that this is the best way to avoid dialysis if we are able to do so; would not wait on transfer to get preliminary serologies here d/t unacceptable delay in care; I offered to transfer to [facility] as had been originally contemplated but he tells me he prefers [facility]. questions sought and answered from patient. (2) Hyponatremia: Plan: presented w/ SN[facility] 123 and has pretty much stayed in this range since admission (range 122-125); 123 thsi am. no sx. ? volume depletion (though urine chemistries don't support this) versus SIADH of some type; no evidence of OL. he is on the admission 7.5L positive but has also had copious diarrhea. urine osms 200, Yuni 68, serum osms 277 (no osm gap); urine is inappropriately dilute. goal is no more than 129 this PM and not to drop further. -no fluid limit for now > he remains on liquid diet d/t diarrhea -repeat urine chemistries, osms -monitor BMP q8-12 hr > recheck ordered 1500 -lipid profile in AM (3) Iron deficiency anemia: Plan: tubular adenoma on 2018 colonoscopy >for 2023 repeat colonoscopy. hgb in fall 2022 was 10 w/ iron deficiency >recommend FOBT >venofer 200 mg given today -consider GI c/s or other w/u of diarrhea Plan I spent a total of 75 minutes coordinating, documenting, and providing care for this patient excluding time spent in the performance of separately billed services. This included personally reviewing all current laboratories and imaging studies, medication reconciliation, outpatient chart review, and discussion with other physicians, with nursing, and as applicable with the patient and family. Admission and Anticipated Discharge Date Admission Date: January 11, 2024 Subjective 9 BM ON; 3L positive on the day by I/O. some issues w/ urinary retention 350 ML today on scan and calloway placed. not sob, no n/v, no edemtous, no abd pain Review of Systems 2 Review of Systems: All systems reviewed & are unremarkable except as noted in Subjective Physical Exam 2 Constitutional: well developed (lying flat in bed on RA), well nourished, cooperative and comfortable; no acute distress Eyes: EOM intact bilaterally ENMT: Ears: no external ear abnormality Nose: no external nose abnormality Mouth: + dry oral mucous membranes Neck: no nuchal rigidity Respiratory: normal respiratory effort Auscultation: + diminished lung sounds Cardiovascular: RRR, no murmur, no edema Gastrointestinal (Abdomen): Inspection/Auscultation: normal bowel sounds P ercussion/Palpation: abdomen soft; abdomen nontender Musculoskeletal: Extremities: strength 5/5 throughout Skin: no rashes, warm and dry Psychiatric: Orientation: alert and oriented x 3 Results & Data Vital Signs (Past 12 Hours) Vital Signs Temp Pulse Pulse Resp BP Pulse Ox Pulse Ox 01/12/24 05:02 94 01/12/24 05:02 94 01/12/24 03:31 36.6 C 73 14 129/84 94 01/12/24 00:00 91 H 01/11/24 23:00 36.7 C 71 14 141/78 H 94 01/11/24 23:00 94 H 22 92 01/11/24 22:30 97 H 15 01/11/24 22:00 89 14 01/11/24 21:30 88 14 01/11/24 21:00 88 18 O2 Del Method O2 Del Method 01/12/24 05:02 Room Air 01/12/24 05:02 Room Air 01/12/24 03:31 Room Air 01/12/24 00:00 01/11/24 23:00 Room Air 01/11/24 23:00 01/11/24 22:30 01/11/24 22:00 01/11/24 21:30 01/11/24 21:00 Laboratory Results 01/12/24 04:14 01/12/24 04:14
--- NOTE | 2024-01-12 10:45 | Hospitalist Progress Note ---
Date of Service January 12, 2024 Assessment & Plan (1) ARF (acute renal failure): Plan Pt is a 68yoM with PMHx significant for CAD status post stent, mild MR, hypertension, hyperlipidemia, DM2 on oral medications, hypothyroidism, fatty liver/hepatic hemangioma as per records, chronic anemia (baseline hemoglobin of 9), gout, peripheral neuropathy, mood disorder, alcohol abuse as per records, past tobacco abuse presenting with inability to urinate for the past day and a half before presentation. Acute on Chronic Kidney Disease Cr of 7.12 on admission, trended up to 7.43 with repeat labs Received 3L of fluids in the ED with apparent worsening of Cr Holding nephrotoxic meds Was supposed to be transferred to [facility] for emergent dialysis however pt adamantly refused despite family member's requests. Nephrology consulted, appreciate further recs for dialysis/further management Anion gap metabolic acidosis Anion Gap of 14-18 VBG with pH of 7.28, pCO2 of 42, HCO3 of 20 on admission Glucose levels range from 137-197, hgba1c of 7.4. UA with noted glucose, no ketones. Received IV insulin in the ED Likely secondary to diarrheal illness, severe kidney dysfunction Was started on bicarb drip in the ED and continued on admission Nephrology consulted, appreciate recs Hyponatremia Sodium of 123 on admission Urine osm of 200, urine Na 68, serum osm of 277 Received 3L of NSS in the ED Nephrology consulted as above, appreciate further recs Hyperkalemia K of 6.2 on admission Was treated with Lokelma in the ED Has since downtrended to 4.4 Nephrology consulted as above, appreciate recs Hypomagnesemia Magnesium levels on low end Replete as needed nephrology consulted as above, appreciate recs Anemia Hgb 9.9 on admission, trended down to 8.4 Pt appears to be on iron and B12 supplementation at home AM iron, b12 and folate levels, and increase supplementation as needed Continue to monitor H/H Elevated Creatinine Kinase Mild rhabdomyolysis CK elevated at 414 Received fluids in the ED AM CK level Cardiomegaly Sinus bradycardia Cardiomegaly noted on chest xray EKG with sinus bradycardia with PACs Nonurgent echo ordered for followup hx CAD status post stent mild MR hypertension In setting of DENNIS above, holding benazepril, chlorthalidone, and spironolactone Continue amlodipine hyperlipidemia on statin Rx, continue DMII on oral medications well-controlled as of outpatient hemoglobin A1c of 6.8 last June 2023 ISS while hospitalized Hold home metformin, glipizide Hypothyroidism Euthyroid as of TSH on admission, wnl Continue home levothyroxine mood disorder stable alcohol abuse as per records patient denies problem past tobacco abuse AWSS at risk protocol, DT precautions per admitting provider Diet: Clear Liquid DVT prophylaxis: Heparin subcu Dispo: PT/OT ordered for further recs Admission and Anticipated Discharge Date Admission Date: January 11, 2024 Physical Exam Physical Exam: General: Alert, oriented. No acute distress Skin: No noted rashes or bruises Psych: Appropriate mood and affect HEENT: NC/AT CV: RRR Resp: Breath sounds clear bilaterally, no increased effort of breathing. Abdomen: Soft, nontender, nondistended. Extremities: No edema in lower extremities bilaterally. Results & Data Results & Data Vital Signs (Past 12 Hours) Vital Signs Temp Pulse Pulse Resp BP Pulse Ox Pulse Ox 01/12/24 05:02 94 01/12/24 05:02 94 01/12/24 03:31 36.6 C 73 14 129/84 94 01/12/24 00:00 91 H 01/11/24 23:00 36.7 C 71 14 141/78 H 94 01/11/24 23:00 94 H 22 92 O2 Del Method O2 Del Method 01/12/24 05:02 Room Air 01/12/24 05:02 Room Air 01/12/24 03:31 Room Air 01/12/24 00:00 01/11/24 23:00 Room Air 01/11/24 23:00
[2024-01-12] MEDS: SODIUM ZIRCONIUM CYCLOSILICATE 10 GM PACKET PO SCH (11:48)
[2024-01-12] MEDS: IRON SUCROSE 200 MG in 0.9 % SODIUM CHLORIDE 100 ML IV ONE (11:48)
[2024-01-12] MEDS: SODIUM CHLORIDE 0.9% 1,000 ML IV SCH (11:49)
[2024-01-12 12:19] LABS: Hematocrit (blood only) 23.5 % (42.0-52.0); Hemoglobin 8.2 g/dl (14.0-18.0)
[2024-01-12 15:13] LABS: Total Protein Urine Random 29.2 mg/dl (0-11.9); Urine Potassium 13.3 mmol/L
[2024-01-12 15:19] LABS: Appearance Urine Clear (Clear); Bacteria Urine Automated None Seen (None Seen); Bilirubin Urine Negative (Negative); Blood Urine 1+ (Negative); Cast Urine Automated 0-2 /lpf (0-2); Color Urine Yellow; Epithelial Cell Urine Auto 0-2 /hpf (0-2); Glucose Urine UA 1+ (Negative); Ketones Urine Negative (Negative); Leukocyte Esterase Urine Negative (Negative); Nitrite Urine Negative (Negative); Protein Urine Trace (Negative); RBC Urine Automated 0-2 /hpf (0-2); Specific Gravity Urine 1.007 (1.000-1.030); Urobilinogen Urine Negative (Negative); WBC Urine Automated 0-5 /hpf (0-5)
[2024-01-12 16:09] LABS: BUN Creatinine Ratio 5.4 (10-20); Calcium 7.1 mg/dl (8.6-10.3); Creatinine Clr Calc Pharmacy 8.3 ml/min; Est GFR (African American) 6.4 ml/min; Est GFR (Non-African American) 5.5 ml/min; Potassium 4.9 mmol/L (3.5-5.1)
--- NOTE | 2024-01-12 17:42 | Discharge Summary ---
Discharge Summary Date of Service January 12, 2024 Notes For Next Care Provider See below Medication Changes From Visit See below Admission HPI Per Admitting Provider History obtained from patient, family, and records. Medical history significant for CAD status post stent, mild MR, hypertension, hyperlipidemia, DM2 on oral medications, hypothyroidism, fatty liver/hepatic hemangioma as per records, chronic anemia (baseline hemoglobin of 9), gout, peripheral neuropathy, mood disorder, alcohol abuse as per records, past tobacco abuse. 2 days history of nausea, vomiting, watery diarrhea symptoms. Mild abdominal discomfort. Last EtOH drink was 2 days ago. Not sure about sick contacts. No recent out-of-town travel or new restaurants or recent antibiotic Rx. Patient denies headache, chest pain, SOB symptoms. Denies OTC NSAID intake. Patient unable to urinate for more than a day as per family. Patient bradycardic upon arrival at the ER. Serum potassium 6.2, serum creatinine 7 Calcium gluconate, IV insulin, Lokelma, bicarb bolus administered at the ER. ER provider discussed case with [facility] drywall taper on-call who recommended transfer to tertiary center if emergent dialysis needed. Patient accepted for transfer at [facility] by hospitalist service pending bed/transport availability. Patient currently declines transfer and would like to stay at [facility]. 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 Admission Exam Per Admitting Provider GENERAL: Comfortable, pleasant, obese, no respiratory distress SKIN: Pallor , warm HEENT: Pale palpebral conjunctivae, no ptosis, dry buccal mucosa NECK : Supple, short neck, no tenderness CHEST : CTA, no tenderness HEART : RRR, no obvious murmurs ABDOMEN: Some distention, nontender EXTREMITIES : No LE swelling/tenderness, no other conspicuous deformities noted NEUROLOGIC : Coherent, no facial asymmetry, no other gross focality Principal Dx & Hospital Course #1 = Principal Diagnosis (1) ARF (acute renal failure): Plan Pt is a 68yoM with PMHx significant for CAD status post stent, mild MR, hypertension, hyperlipidemia, DM2 on oral medications, hypothyroidism, fatty liver/hepatic hemangioma as per records, chronic anemia (baseline hemoglobin of 9), gout, peripheral neuropathy, mood disorder, alcohol abuse as per records, past tobacco abuse presenting with inability to urinate for the past day and a half before presentation. Nephrology recommended transfer to [facility] on 01/12/24 for further evaluation and possible renal biopsy. Pt was agreeable to this transfer. Acute on Chronic Kidney Disease Acute diarrheal illness Cr of 7.12 on admission, trended up to 7.43 with repeat labs, Cr 8.86 on discharge Received 3L of fluids in the ED with apparent worsening of Cr Holding nephrotoxic meds Was supposed to be transferred to [facility] for emergent dialysis on admission however pt adamantly refused despite family member's requests. Likely secondary to diarrheal illness Nephrology consulted, appreciate further recs for dialysis/further management -no indication for dialysis at this time -recommending transfer to [facility] for renal biopsy -pt was transferred on 01/11 Anion gap metabolic acidosis Anion Gap of 14-18 VBG with pH of 7.28, pCO2 of 42, HCO3 of 20 on admission Glucose levels range from 137-197, hgba1c of 7.4. UA with noted glucose, no ketones. Received IV insulin in the ED Likely secondary to diarrheal illness, severe kidney dysfunction Was started on bicarb drip in the ED and continued on admission, subsequently discontinued Nephrology consulted, appreciate recs Hyponatremia Sodium of 123 on admission Urine osm of 200, urine Na 68, serum osm of 277 Received 3L of NSS in the ED on admission Nephrology consulted as above, appreciate further recs Consider Legionella testing in setting of diarrheal illness on transfer Hyperkalemia K of 6.2 on admission Was treated with Lokelma in the ED Has since downtrended to 4.4 Nephrology consulted as above, appreciate recs Hypomagnesemia Magnesium levels on low end Replete as needed nephrology consulted as above, appreciate recs Anemia Hgb 9.9 on admission, trended down to 8.4 Pt appears to be on iron and B12 supplementation at home AM iron, b12 and folate levels, and increase supplementation as needed Continue to monitor H/H Elevated Creatinine Kinase Mild rhabdomyolysis CK elevated at 414 Received fluids in the ED CK level downtrending Cardiomegaly Sinus bradycardia Cardiomegaly noted on chest xray EKG with sinus bradycardia with PACs Nonurgent echo ordered for followup -EF 60-65% -borderline LVH -no wall motion abnormalities -mild to mod mitral regurg -mitral leaflets thickened hx CAD status post stent mild MR hypertension In setting of DENINS above, held benazepril, chlorthalidone, and spironolactone Continue amlodipine hyperlipidemia on statin Rx, continue DMII on oral medications well-controlled as of outpatient hemoglobin A1c of 6.8 last June 2023 ISS while hospitalized Hold home metformin, glipizide Hypothyroidism Euthyroid as of TSH on admission, wnl Continue home levothyroxine mood disorder stable alcohol abuse as per records patient denies problem past tobacco abuse AWSS at risk protocol, DT precautions per admitting provider Diet: Clear Liquid DVT prophylaxis: Heparin subcu Dispo: PT/OT ordered for further recs Discharge Exam General: Alert, oriented. No acute distress Skin: No noted rashes or bruises Psych: Appropriate mood and affect HEENT: NC/AT CV: RRR Resp: Breath sounds clear bilaterally, no increased effort of breathing. Abdomen: Soft, nontender, nondistended. Extremities: No edema in lower extremities bilaterally. Updated Medication List Medication Instructions Recorded Confirmed Type amlodipine 10 mg-benazepril 40 mg 1 cap PO QAM 01/20/19 01/11/24 History capsule atorvastatin 40 mg tablet 40 mg PO HS 01/20/19 01/11/24 History cholecalciferol (vitamin D3) 50 2,000 unit PO QAM 01/20/19 01/11/24 History mcg (2,000 unit) tablet (Vitamin D3) cyanocobalamin (vitamin B-12) 1,000 mcg PO DAILY 01/20/19 01/11/24 History 1,000 mcg tablet (Vitamin B-12) lansoprazole 30 mg capsule,delayed 30 mg PO QAM 01/20/19 01/11/24 History release metformin 1,000 mg tablet 1,000 mg PO AMHS 01/20/19 01/11/24 History metoprolol succinate 100 mg 100 mg PO QPM 01/20/19 01/11/24 History tablet,extended release 24 hr [id number]-rku-rmecs acid-vit 1 tab PO QPM 01/20/19 01/11/24 History K-lycop 400 mcg-20 mcg-370 mcg tablet (Men's 50 Plus Multivitamin) allopurinol 300 mg tablet 300 mg PO QAM 04/14/20 01/11/24 History spironolactone 25 mg tablet 25 mg PO QAM 04/14/20 01/11/24 History aspirin 81 mg tablet,delayed 81 mg PO QAM 01/11/24 01/11/24 History release chlorthalidone 25 mg tablet 25 mg PO QAM 01/11/24 01/11/24 History ferrous sulfate 325 mg (65 mg 325 mg PO DAILY 01/11/24 01/11/24 History iron) tablet (iron) glipizide 5 mg tablet, extended 5 mg PO QAM 01/11/24 01/11/24 History release 24 hr levothyroxine 112 mcg tablet 112 mcg PO DAILYBB 01/11/24 01/11/24 History metoprolol succinate 50 mg 50 mg PO QAM 01/11/24 01/11/24 History tablet,extended release 24 hr nortriptyline 10 mg capsule 200 mg PO HS 01/11/24 01/11/24 History omega 3-bgy-ypa-fish oil 1,200 mg 1 cap PO UD 01/11/24 01/11/24 History (144 mg-216 mg) capsule (Fish Oil) tadalafil 10 mg tablet 10 mg PO DAILY PRN Erectile 01/11/24 01/11/24 History Dysfunction triamcinolone acetonide 0.5 % 1 applic topical BID 01/11/24 01/11/24 History topical cream Additional Medication Comments Current Inpatient Medications Acetaminophen (Acetaminophen 500 Mg Tab) 500 mg PO Q6H PRN PRN Reason: fever/pain Stop: 02/10/24 01:59 Last Admin: 01/11/24 10:57 Dose: 500 mg Amlodipine Besylate (Amlodipine Besylate 5 Mg Tab) 10 mg PO QAM [facility]LA Stop: 02/10/24 08:59 Last Admin: 01/12/24 08:44 Dose: 10 mg Aspirin (Aspirin 81 Mg Ectab) 81 mg PO QAM [facility]LA Stop: 02/10/24 08:59 Last Admin: 01/12/24 08:45 Dose: 81 mg Cyanocobalamin (Cyanocobalamin (B-12) 500 Mcg Tablet) 1,000 mcg PO DAILY [facility]LA Stop: 02/10/24 08:59 Last Admin: 01/12/24 08:46 Dose: 1,000 mcg Dextrose (Dextrose 50% 50 Ml Syringe) 25 - 50 ml IV UD PRN; Protocol PRN Reason: Hypoglycemia Protocol Stop: 02/10/24 05:01 Ferrous Sulfate (Ferrous Sulfate 325 Mg Tab) 325 mg PO DAILY [facility]LA Stop: 02/10/24 08:59 Last Admin: 01/12/24 08:46 Dose: 325 mg Folic Acid (Folic Acid 1 Mg Tab) 1 mg PO QAM [facility]LA Stop: 02/10/24 08:59 Last Admin: 01/12/24 08:46 Dose: 1 mg Glucagon (Glucagon For Inj 1 Mg Vial) 1 mg SQ UD PRN; Protocol PRN Reason: Hypoglycemia Protocol Stop: 02/10/24 05:01 Glucose (Glucose 40% Gel 15 Gm Tube) 15 - 30 gm PO UD PRN; Protocol PRN Reason: Hypoglycemia Protocol Stop: 02/10/24 05:01 Glucose (Glucose 10 Tab/Tube) 4 - 8 tab PO UD PRN; Protocol PRN Reason: Hypoglycemia Treatment Stop: 02/10/24 05:01 Heparin Sodium (Porcine) (Heparin Sod 5,000 Unit/0.5 Ml Vial) 5,000 units SQ Q8 [facility]LA Stop: 02/10/24 05:59 Last Admin: 01/12/24 14:13 Dose: 5,000 units Hydromorphone HCl (Hydromorphone Hcl 2 Mg Tab) 2 mg PO QID PRN PRN Reason: Pain Stop: 01/25/24 01:59 Promethazine HCl 6.25 mg/ (Sodium Chloride) 50.25 mls @ 201 mls/hr IV Q6H PRN PRN Reason: Nausea And Vomiting Stop: 02/10/24 01:59 Lorazepam 1 mg/ Syringe 1 mls @ 2 mls/min IV ONE PRN; Protocol PRN Reason: EtoH Withdrawal AWSS 6-10 Sodium Chloride (Nss) 1,000 mls @ 80 mls/hr IV .[id number] [facility] Stop: 02/11/24 12:05 Last Admin: 01/12/24 11:49 Dose: 80 mls/hr Insulin Aspart (Insulin Aspart Per Unit Charge) 0 units SC ACHS [facility] Stop: 02/10/24 05:01 Last Admin: 01/12/24 17:51 Dose: Not Given Levothyroxine Sodium (Levothyroxine Sodium 112 Mcg Tablet) 112 mcg PO DAILYBB [facility] Stop: 02/10/24 06:29 Last Admin: 01/12/24 05:11 Dose: 112 mcg Lorazepam (Lorazepam 0.5 Mg Tab) 0.5 mg PO TID PRN PRN Reason: Anxiety Stop: 02/10/24 01:59 Metoprolol Succinate (Metoprolol Succ 50mg Ext Rel Tab) 50 mg PO BID [facility] Stop: 02/10/24 08:59 Last Admin: 01/12/24 08:45 Dose: 50 mg Miscellaneous (Carbohydrates For Hypoglycemia ) 15 - 30 gm PO UD PRN PRN Reason: Hypoglycemia Protocol Stop: 02/10/24 05:01 Multivitamins (Multivitamin Tab) 1 tab PO QAM [facility] Stop: 02/10/24 08:59 Last Admin: 01/12/24 08:45 Dose: 1 tab Nortriptyline HCl (Nortriptyline Hcl 25 Mg Cap) 200 mg PO HS [facility] Stop: 02/10/24 20:59 Last Admin: 01/11/24 20:45 Dose: 200 mg Pantoprazole Sodium (Pantoprazole 40 Mg Tab) 40 mg PO QAM [facility] Stop: 02/10/24 08:59 Last Admin: 01/12/24 08:45 Dose: 40 mg Sodium Zirconium Cyclosilicate (Sodium Zirconium Cyclosilicate 10 Gm Packet) 10 gm PO DAILY@1100 [facility] Stop: 02/11/24 10:59 Last Admin: 01/12/24 11:48 Dose: 10 gm Thiamine HCl (Thiamine Hcl 100 Mg Tab) 100 mg PO QAM [facility] Stop: 02/11/24 08:59 Last Admin: 01/12/24 08:46 Dose: 100 mg Hospital Stay Data Consultations 01/11/24 01:12 ED Decision to Admit Stat 01/11/24 05:02 Consult Nephrology Routine Diagnostic Imagining Performed 01/10/24 21:19 CT abd pelvis wo con Stat Pending Results Patient Have Any Pending Studies at Discharge: No Discharge Instructions Given to Patient (Per Discharging Provider) Mr. Baxter, You were admitted with renal failure and your were seen by the drywall taper They are recommending transfer for further evaluation and possible need of a renal biopsy. We are transferring you to [facility] to have that completed. It was a pleasure taking care of you while you were here. Total Time Total Time Spent Total Time Spent (In Minutes): 75
== END 2024-01-12 20:30 | disposition short-term general hospital (02) | DRG 683 ==
LOC: ED 19:41 → 1E 01-11 01:56